=== PATIENT | female | born 1965 | race Asian ===

== ENCOUNTER 2016-04-19 11:28 | Emergency (ER) | payer OTHER ==
[2016-04-19 12:18] VITALS: BP 100/71
--- NOTE | 2016-04-19 12:29 | UC ---
Throat Pain/Nasal Guillermo HPI - HPI Summary HPI Summary: 1 day , fevers, body aches, cough - History of Current Complaint Chief Complaint: UCGeneralIllness Stated Complaint: FEVER, AND COUGH Time Seen by Provider: 04/19/16 12:10 Hx Obtained From: Patient ?: No Onset/Duration: Sudden Onset, Lasting Days - 1, Still Present Severity: Moderate Pain Intensity: 5 Pain Scale Used: 0-10 Numeric Cough: Nonproductive Associated Signs & Symptoms: Positive: Sinus Discomfort, Nasal Discharge, Fever - Allergies/Home Medications Allergies/Adverse Reactions: Allergies Allergy/AdvReac Type Severity Reaction Status Date / Time Oxycodone Allergy Itching Verified 04/19/16 12:08 ENVIRONMENTAL Allergy WATERY EYES Uncoded 04/19/16 12:08 Home Medications: Home Medications Dicyclomine CAP* [Bentyl CAP*] 20 mg 04/19/16 [History] Folic Acid TAB* [Folvite TAB*] 1 tab DAILY 04/19/16 [History Confirmed 04/19/16] Methotrexate TAB* 4 tab WEEKLY 04/19/16 [History Confirmed 04/19/16] PMH/Surg Hx/FS Hx/Imm Hx Previously Healthy: No Endocrine History Of: Denies: Diabetes Cardiovascular History Of: Denies: Hypertension, Pacemaker/ICD Respiratory History Of: Reports: Asthma - inhaler GI/ History Of: Denies: Renal Disease Cancer History Of: Denies: Breast Cancer - Surgical History Surgical History: Yes Surgery Procedure, Year, and Place: hernia repair 2008, [facility] – [place] - Family History Known Family History: Positive: None Family History: denies cardiovascular issues in family lineage - Social History 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 Lives: With Family Alcohol Use: None Substance Use Type: None Smoking Status (MU): Never Smoked Tobacco Review of Systems Constitutional: Fever, Chills, Fatigue Skin: Negative Eyes: Negative ENT: Sore Throat, Nasal Discharge Respiratory: Cough Cardiovascular: Negative Gastrointestinal: Negative Genitourinary: Negative Motor: Negative Neurovascular: Negative Musculoskeletal: Arthralgia, Myalgia Neurological: Headache Psychological: Negative All Other Systems Reviewed And Are Negative: Yes Physical Exam Triage Information Reviewed: Yes Appearance: Well-Nourished, Ill-Appearing, Pain Distress - mild Vital Signs: Initial Vital Signs Temp 100.9 F 04/19/16 12:12 Pulse 99 04/19/16 12:12 Resp 18 04/19/16 12:12 BP 100/71 04/19/16 12:12 Pulse Ox 100 04/19/16 12:12 Vital Signs Reviewed: Yes Eye Exam: Normal Eyes: Positive: Conjunctiva Clear ENT Exam: Normal ENT: Positive: Normal ENT inspection, Hearing grossly normal, Nasal congestion, Nasal drainage, TMs normal. Negative: Pharyngeal erythema, Tonsillar swelling, Tonsillar exudate, Trismus, Muffled/hoarse voice Dental Exam: Normal Neck exam: Normal Neck: Positive: Supple, Nontender, No Lymphadenopathy Respiratory Exam: Normal Respiratory: Positive: Chest non-tender, Lungs clear, Normal breath sounds, No respiratory distress, No accessory muscle use Cardiovascular Exam: Normal Cardiovascular: Positive: RRR, No Murmur, Pulses Normal, Brisk Capillary Refill Musculoskeletal Exam: Normal Musculoskeletal: Positive: Strength Intact, ROM Intact, No Edema Neurological Exam: Normal Neurological: Positive: Alert, Muscle Tone Normal Psychological Exam: Normal Skin Exam: Normal Diagnostics - Laboratory Diagnostic Studies Completed/Ordered: influenza A (+) Throat Pain/Nasal Course/Dx - Course Assessment/Plan: Tamiflu, rest, ibuprofen, increase fluids, follow with pcp re- check prn - Differential Dx/Diagnosis Differential Diagnosis/HQI/PQRI: Influenza, Otitis Media, Peritonsillar Abscess , Pharyngitis, URI Provider Diagnoses: Influenza A Discharge - Discharge Plan Condition: Stable Disposition: HOME Prescriptions: Oseltamivir CAP* [Tamiflu CAP*] 75 mg PO BID #10 cap Patient Education Materials: Influenza (ED) Forms: *Work Release Referrals: Jair Paredes MD [Primary Care Provider] - 5 Days
[2016-04-19] MEDS ORDERED: Acetaminophen TAB* 325 MG PO ONE (12:31)
== END 2016-04-19 13:26 | disposition home or self-care (01) ==
LOC: UCEAST 11:28
DX: J09.X2 Influenza due to identified novel influenza A virus with other respiratory manifestations (principal); Z88.5 Allergy status to narcotic agent
CPT/HCPCS: 87502; 87651; 99212; A9270-GY; G0463

== ENCOUNTER 2016-10-18 09:56 | Emergency (ER) | payer OTHER ==
[2016-10-18] MEDS ORDERED: NS 0.9% 1000 ML* 1,000 ML IV ONE (10:36)
[2016-10-18] MEDS ORDERED: Ondansetron INJ* 2 MG/ML VIAL IV ONE (10:36)
[2016-10-18 10:50] LABS: Hematocrit 40 % (35-47); Hemoglobin 12.8 g/dl (12.0-16.0); Mean Corpuscular HGB Conc 32 g/dl (31-36); Mean Corpuscular Hemoglobin 26 pg (27-31); Mean Corpuscular Volume 83 fL (80-97); Mean Platelet Volume 9 um3 (7.4-10.4); Red Blood Count 4.84 10^6/ul (4.0-5.4); Red Cell Distribution Width 15 % (10.5-15)
[2016-10-18 11:09] LABS: Albumin 4.1 g/dL (3.2-5.2); BUN/Creatinine Ratio 11.7 (8-20); Calcium 9.5 mg/dL (8.6-10.3); EGFR African American 101.6 (>60); Globulin 3.2 g/dL (2-4); Potassium 4.2 mmol/L (3.5-5.0); Total Bilirubin 0.9 mg/dL (0.2-1.0); Total Protein 7.3 g/dL (6.4-8.9)
[2016-10-18 12:43] VITALS: BP 109/61
[2016-10-18 12:51] LABS: Urine Bacteria Absent (Absent); Urine Bilirubin Negative (Negative); Urine Glucose Negative (Negative); Urine Nitrite Negative (Negative)
--- NOTE | 2016-10-19 08:22 | ED ---
Abdominal Pain/Female - HPI Summary HPI Summary: Patient is an otherwise healthy 50 year old female who presents to the Ed with CC of nausea vomiting weakness and headache for two days. Her symptoms began on Tuesday morning after beginning a Bupenorphrine patch on Tuesday night which was prescribed by her PCP for chronic back pain. She denies diarrhea or abdominal pain. She notes to weakness, but also has not had po intake for over 36 hours. She denies fevers, sweats, chills. Denies other medications. is at bedside. - History of Current Complaint Chief Complaint: EDNauseaVomitDiarrh Stated Complaint: VOMITING/DIZZY Time Seen by Provider: 10/18/16 10:08 Hx Obtained From: Patient ?: No Onset/Duration: Sudden Onset Timing: Constant Severity Initially: Moderate Severity Currently: Moderate Pain Intensity: 0 Pain Scale Used: 0-10 Numeric Aggravating Factor(s): Nothing Alleviating Factor(s): Nothing Associated Signs and Symptoms: Positive: Nausea, Vomiting Allergies/Adverse Reactions: Allergies Allergy/AdvReac Type Severity Reaction Status Date / Time Cyclobenzaprine Allergy Unknown Verified 10/18/16 10:11 Reaction Details Oxycodone Allergy Itching Verified 10/18/16 10:11 ENVIRONMENTAL Allergy WATERY EYES Uncoded 10/18/16 10:11 Home Medications: Home Medications Buprenorphine [Butrans] 7.5 mcg TRANSDERM WEEKLY 10/18/16 [History Confirmed ] PMH/Surg Hx/FS Hx/Imm Hx Previously Healthy: Yes Endocrine/Hematology History: Denies: Hx Diabetes Cardiovascular History: Denies: Hx Hypertension, Hx Pacemaker/ICD, Other Cardiovascular Problems/ Disorders Respiratory History: Reports: Hx Asthma - inhaler, Hx Seasonal Allergies Denies: Other Respiratory Problems/Disorders GI History: Reports: Hx Irritable Bowel Denies: Other GI Disorders History: Denies: Hx Renal Disease, Other Problems/Disorders Musculoskeletal History: Reports: Hx Back Problems - L1-L2 compression fracture Denies: Other Musculoskeletal History Sensory History: Denies: Hx Contacts or Glasses, Hx Hearing Aid Opthamlomology History: Denies: Hx Contacts or Glasses Neurological History: Reports: Other Neuro Impairments/Disorders - PAIN CLINIC PT Psychiatric History: Denies: Hx Panic Disorder - Cancer History Hx Chemotherapy: No Hx Radiation Therapy: No - Surgical History Surgery Procedure, Year, and Place: hernia repair 2009, [facility] [place] Hx Anesthesia Reactions: No Infectious Disease History: Denies: Traveled Outside the [place] in Last 30 Days - Family History Known Family History: Positive: None Family History: denies cardiovascular issues in family lineage - Social History Occupation: Employed Full-time Lives: With Family Alcohol Use: None Hx Substance Use: Yes Substance Use Type: Reports: Prescribed Hx Tobacco Use: No Smoking Status (MU): Never Smoked Tobacco Review of Systems Constitutional: Negative Eyes: Negative ENT: Negative Respiratory: Negative Positive: Abdominal Pain, Vomiting, Nausea Positive: no symptoms reported, see HPI Skin: Negative Neurological: Negative All Other Systems Reviewed And Are Negative: Yes Physical Exam Triage Information Reviewed: Yes Vital Signs On Initial Exam: Initial Vitals Temp Pulse Resp BP Pulse Ox 97.7 F 67 20 111/62 100 10/18/16 09:58 10/18/16 09:58 10/18/16 09:58 10/18/16 09:58 10/18/16 09:58 Vital Signs Reviewed: Yes Appearance: Positive: Well-Appearing, Well-Nourished Skin: Positive: Warm, Skin Color Reflects Adequate Perfusion Head/Face: Positive: Normal Head/Face Inspection Eyes: Positive: EOMI, LUZ, Conjunctiva Clear Neck: Positive: Supple, No Lymphadenopathy Respiratory/Lung Sounds: Positive: Clear to Auscultation, Breath Sounds Present Cardiovascular: Positive: RRR, Pulses are Symmetrical in both Upper and Lower Extremities Bowel Sounds: Positive: Present Musculoskeletal: Positive: Normal, Strength/ROM Intact Neurological: Positive: Normal, Sensory/Motor Intact, Alert, Oriented to Person Place, Time, Speech Normal Psychiatric: Positive: Normal AVPU Assessment: Alert - Delilah Coma Scale Coma Scale Total: 15 Diagnostics - Vital Signs Vital Signs Temp Pulse Resp BP Pulse Ox 10/18/16 12:42 98.6 F 77 16 109/61 10/18/16 11:30 77 104/71 95 10/18/16 11:00 69 105/65 93 10/18/16 10:30 65 116/73 99 10/18/16 10:14 65 99 10/18/16 10:11 115/63 10/18/16 10:04 98.3 F 84 20 111/62 98 10/18/16 09:58 97.7 F 67 20 111/62 100 - Laboratory Lab Results: Lab Results 10/18/16 10/18/1610/18/17 Range/Units 10:35 10:35 11:54 WBC 6.0 (3.5-10.8) 10^3/ul RBC 4.84 (4.0-5.4) 10^6/ul Hgb 12.8 (12.0-16.0) g/dl Hct 40 (35-47) % MCV 83 (80-97) fL MCH 26 L (27-31) pg MCHC 32 (31-36) g/dl RDW 15 (10.5-15) % Plt Count 201 (150-450) 10^3/ul MPV 9 (7.4-10.4) um3 Neut % (Auto) 71.8 (38-83) % Lymph % (Auto) 18.9 L (25-47) % [place] % (Auto) 5.6 (1-9) % Eos % (Auto) 3.1 (0-6) % Baso % (Auto) 0.6 (0-2) % Absolute Neuts (auto) 4.3 (1.5-7.7) 10^3/ul Absolute Lymphs (auto) 1.1 (1.0-4.8) 10^3/ul Absolute Monos (auto) 0.3 (0-0.8) 10^3/ul Absolute Eos (auto) 0.2 (0-0.6) 10^3/ul Absolute Basos (auto) 0 (0-0.2) 10^3/ul Absolute Nucleated RBC 0 10^3/ul Nucleated RBC % 0.1 Sodium 137 (133-145) mmol/L Potassium 4.2 (3.5-5.0) mmol/L Chloride 103 (101-111) mmol/L Carbon Dioxide 27 (22-32) mmol/L Anion Gap 7 (2-11) mmol/L BUN 9 (6-24) mg/dL Creatinine 0.77 (0.51-0.95) mg/dL Est GFR ( Amer) 101.6 (>60) Est GFR (Non-Af Amer) 79.0 (>60) BUN/Creatinine Ratio 11.7 (8-20) Glucose 98 (70-100) mg/dL Calcium 9.5 (8.6-10.3) mg/dL Total Bilirubin 0.90 (0.2-1.0) mg/dL AST 51 H (13-39) U/L ALT 52 (7-52) U/L Alkaline Phosphatase 68 (34-104) U/L Total Protein 7.3 (6.4-8.9) g/dL Albumin 4.1 (3.2-5.2) g/dL Globulin 3.2 (2-4) g/dL Albumin/Globulin Ratio 1.3 (1-3) Urine Color Yellow Urine Appearance Clear Urine pH 7.0 (5-9) Ur Specific [place] 1.008 L (1.010-1.030) Urine Protein Negative (Negative) Urine Ketones Negative (Negative) Urine Blood Negative (Negative) Urine Nitrate Negative (Negative) Urine Bilirubin Negative (Negative) Urine Urobilinogen Negative (Negative) Ur Leukocyte Esterase 1+ H (Negative) Urine WBC (Auto) Trace(0-5/hpf) (Absent) Urine RBC (Auto) Trace(0-2/hpf) (Absent) Ur Squamous Epith Cells Present H (Absent) Urine Bacteria Absent (Absent) Urine Glucose Negative (Negative) Result Diagrams: 10/18/16 10:35 10/18/16 10:35 Lab Statement: Any lab studies that have been ordered have been reviewed, and results considered in the medical decision making process. Abdominal Pain Fem Course/Dx - Course Course Of Treatment: Patient was given 4 mg IV Zofran, one L fluid, and feels somewhat improved. Labs wnl. UA wnl. Patient is okay for discharge and is requesting note for work. She is instructed to discontinue the buka norfran medication and follow-up with her PCP this week regarding a new medication. - Diagnoses Differential Diagnosis: Positive: Pancreatitis, Urinary Tract Infection, Other - gastroenteritis Provider Diagnoses: Medication reaction Discharge - Discharge Plan Condition: Stable Disposition: HOME Prescriptions: Ondansetron ODT TAB* [Zofran 4 MG Odt TAB*] 4 mg PO Q6H PRN #12 tab.odt MDD 4 PRN Reason: Nausea Patient Education Materials: Acute Nausea and Vomiting (ED) Forms: *Work Release Referrals: Jair Paredes MD [Primary Care Provider] - Additional Instructions: Can take Zofran every 6 hours as needed for nausea Drink small amounts of fluid as tolerated When able to eat follow BRAT diet: Bananas, rice, applesauce, toast Symptoms likely due to medication Take ibuprofen or Tylenol for pain as needed every 6 hours Follow up with primary within 5 days Return to ED if develop fever that does not respond to Tylenol or ibuprofen, severe abdominal pain, or any new or worsening symptoms
== END 2016-10-18 12:44 | disposition home or self-care (01) ==
LOC: ED 09:56
DX: R11.2 Nausea with vomiting, unspecified (principal); R53.1 Weakness; R51 Headache; T50.995A Adverse effect of other drugs, medicaments and biological substances, initial encounter; Y92.9 Unspecified place or not applicable; J45.909 Unspecified asthma, uncomplicated; Z88.5 Allergy status to narcotic agent
CPT/HCPCS: 36415; 80053; 81003; 81015; 85025; 87086; 96361; 96374; 99283; J2405

== ENCOUNTER 2016-12-28 16:33 | Emergency (ER) | payer OTHER ==
[2016-12-28 17:03] VITALS: BP 119/76
[2016-12-28] MEDS ORDERED: Ondansetron ODT TAB* 4 MG PO ONE (17:18)
[2016-12-28] MEDS ORDERED: Ketorolac INJ* 30 MG/ML 1 ML VIAL IM ONE (17:18)
--- NOTE | 2016-12-28 18:25 | UC ---
Abdominal Pain Female HPI - HPI Summary HPI Summary: 50 yo female with the onset about 2 AM of RUQ and epigastric abd pain that was followed by nausea and vomiting had vomited about 8 x no fever some chills no UTI symptom - History of Current Complaint Chief Complaint: UCAbdominalPain Stated Complaint: ABDOMINAL PAIN Time Seen by Provider: 12/28/16 17:06 Hx Obtained From: Patient Onset/Duration: Sudden Onset, Lasting Hours Timing: Constant Severity Initially: Moderate Severity Currently: Moderate Pain Intensity: 6 Pain Scale Used: 0-10 Numeric Location: Discrete At: RUQ, Epigastric Radiates: No Character: Cramping, Sharp Aggravating Factor(s): Food Alleviating Factor(s): Nothing Associated Signs and Symptoms: Positive: Nausea, Vomiting Allergies/Adverse Reactions: Allergies Allergy/AdvReac Type Severity Reaction Status Date / Time Cyclobenzaprine Allergy Unknown Verified 12/28/16 17:02 Reaction Details Oxycodone Allergy Itching Verified 12/28/16 17:02 Buprenorphine [From VoltDB] AdvReac Nausea And Verified 12/28/16 17:02 Vomiting ENVIRONMENTAL Allergy WATERY EYES Uncoded 12/28/16 17:02 Home Medications: Home Medications Diphenhydramine HCl [Benadryl Allergy 25 MG CAP] 2 mg PO Q6H PRN 12/28/16 [ History Confirmed 12/28/16] Ibuprofen [Ibuprofen 200 MG] 600 mg PO Q8H PRN 12/28/16 [History Confirmed 12/28] Methotrexate TAB* 2.5 mg PO Q7D 12/28/16 [History Confirmed 12/28/16] PMH/Surg Hx/FS Hx/Imm Hx Previously Healthy: Yes - Surgical History Surgical History: Yes Surgery Procedure, Year, and Place: hernia repair 2008, [facility] [place] - Family History Known Family History: Positive: None Negative: Cardiac Disease, Hypertension, Diabetes Family History: denies cardiovascular issues in family lineage - Social History Alcohol Use: None Substance Use Type: None Smoking Status (MU): Never Smoked Tobacco Review of Systems Constitutional: Negative Skin: Negative Eyes: Negative ENT: Negative Respiratory: Negative Cardiovascular: Negative Gastrointestinal: Abdominal Pain, Vomiting, Nausea Genitourinary: Negative Motor: Negative Neurovascular: Negative Musculoskeletal: Negative Neurological: Negative Psychological: Negative Is Patient Immunocompromised?: No All Other Systems Reviewed And Are Negative: Yes Physical Exam Triage Information Reviewed: Yes Appearance: Well-Appearing, No Pain Distress, Well-Nourished Vital Signs: Initial Vital Signs Temp 98.1 F 12/28/16 16:57 Pulse 74 12/28/16 16:57 Resp 16 12/28/16 16:57 BP 119/76 12/28/16 16:57 Pulse Ox 100 12/28/16 16:57 Vital Signs Reviewed: Yes Eyes: Positive: Conjunctiva Clear ENT: Positive: Hearing grossly normal. Negative: Nasal congestion, TMs normal, Trismus, Muffled/hoarse voice Neck: Positive: Supple, Nontender, No Lymphadenopathy Respiratory: Positive: Lungs clear, Normal breath sounds, No respiratory distress Cardiovascular: Positive: RRR, No Murmur Abdomen Description: Positive: No Organomegaly. Negative: Nontender - tender epigastirum and RUQ, CVA Tenderness (R), CVA Tenderness (L), McBurney's Point Tenderness, Peritoneal Signs, Pulsatile Mass, Splenomegaly Bowel Sounds: Positive: Present Musculoskeletal: Positive: ROM Intact, No Edema Neurological: Positive: Alert Psychological Exam: Normal Skin Exam: Normal Re-Evaluation - Re-Evaluation First Eval Re-Evaluation Time: 18:15 Change: Improved Comment: decreased pain 2/10, markedly decreased tenderness, decreased nausea Abd Pain Female Course/Dx - Differential Dx/Diagnosis Provider Diagnoses: Abdominal pain of uncertain cause Discharge - Discharge Plan Condition: Stable Disposition: HOME Prescriptions: Ondansetron TAB* [Zofran Tab*] 4 mg PO Q6H PRN #10 tab PRN Reason: Nausea Patient Education Materials: Biliary Colic (ED), Acute Abdominal Pain (ED) Forms: *Work Release Referrals: Yo Tomlin MD [Medical Doctor] - 1 Day Jair Paredes MD [Primary Care Provider] - 1 Day Additional Instructions: you need to get rechecked tomorrow to ER tonight if symptoms worsen/increased pain/worsening vomiting This may be due to your gall bladder clear liquids tonight
[2016-12-29 11:21] LABS: Hematocrit 37 % (35-47); Hemoglobin 11.8 g/dl (12.0-16.0); Mean Corpuscular HGB Conc 32 g/dl (31-36); Mean Corpuscular Hemoglobin 27 pg (27-31); Mean Corpuscular Volume 84 fL (80-97); Mean Platelet Volume 10 um3 (7.4-10.4); Red Blood Count 4.35 10^6/ul (4.0-5.4); Red Cell Distribution Width 15 % (10.5-15); White Blood Count 5.2 10^3/ul (3.5-10.8)
[2016-12-29 11:39] LABS: Albumin 4.1 g/dL (3.2-5.2); BUN/Creatinine Ratio 14.1 (8-20); Calcium 9.5 mg/dL (8.6-10.3); EGFR African American 111.6 (>60); EGFR Non-African American 86.8 (>60); Globulin 2.7 g/dL (2-4); Potassium 4.3 mmol/L (3.5-5.0); Total Bilirubin 0.6 mg/dL (0.2-1.0); Total Protein 6.8 g/dL (6.4-8.9)
--- NOTE | 2016-12-29 17:52 | ED ---
Progress - Progress Note Progress Note: NO ACUTE CHANGES ON LABS. HGB 11.8 (NORMAL 12-16) SO F/U PCP. Re-Evaluation - Re-Evaluation First Eval Re-Evaluation Time: 18:15 Change: Improved Comment: decreased pain 2/10, markedly decreased tenderness, decreased nausea Course/Dx - Diagnoses Provider Diagnoses: Abdominal pain
== END 2016-12-28 18:38 | disposition home or self-care (01) ==
LOC: UCEAST 16:33
DX: R10.9 Unspecified abdominal pain (principal); Z88.5 Allergy status to narcotic agent
CPT/HCPCS: 36415; 80053; 81003; 83690; 85025; 96372; 99212; A9270-GY; G0463; J1885

== ENCOUNTER 2017-12-22 16:26 | Emergency (ER) | payer OTHER ==
--- OUTSIDE RECORDS SUMMARY | 2017-12-22 16:32 | XMS REPORT ---
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 Active Onset: 10/10/2007 Allergic rhinitis Jair Paredes M.D. Active Onset: 10/10/2007 Asthma without status asthmaticus Jair Paredes M.D. 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 Active Onset: 09/09/2014 Polyarthropathy Didier Hensley M.D. Active Onset: 08/26/2014 Acquired trigger finger Didier Hensley M.D. Active Onset: 08/26/2014 Arthropathy of joint of hand Didier Hensley M.D. Active Family History Date Family Member(s) Problem(s) Comments First Brother Diabetes Mellitus, II Social History Type Date Description Comments Cigarette Use Nonsmoker ETOH Use Denies alcohol use Smoking Patient has never smoked Exercise Type/Frequency Current Exercises sporadically Allergies, Adverse Reactions, Alerts Date Description Reaction Status Severity Comments 10/15/2008 Fruit mouth itching active cherries, apples, pears, peaches 01/12/2010 Hydrocodone ? itch active 01/12/2010 Cyclobenzaprine itch active Medications Medication Date Status Form Strength Qnty SIG Indications Ordering Provider Mupirocin 12/21 Active Ointment 2% 15gm apply to L01.00 Marlin Rawls affected Marko, area in [employer]ICING MANAGER nose 2 times per day until healed, not more than 14 days in a row Fluocinonide 05/24 Active Solution 0.05% 60uni apply Marlin C. ts topically Marko, once [employer]ICING MANAGER daily as directed Montelukast 03/13 Active Tablets 10mg 90tab 1 by J45.30 Marlin CYarelis s mouth Marko, every day [employer]ICING MANAGER prn Ventolin HFA 11/06 Active Aerosol 108(90Bas 18uni inhale Chelsea /2013 e) ts two puffs Emilee, mcg/Act by mouth [employer] F[employer]ER every 4 hours as needed for coughing and wheezing Dicyclomine HCL 04/13 Active Tablets 20mg 30tab take 1 564.1 Didier T. s tablet by Ayden, mouth M.D. prior to meals and in the evening as needed Tramadol HCL 12/29 Hx Tablets 50mg 10tab take 1 by R10.11 Marlin C. s mouth Marko, - every 6 [employer]ICING MANAGER 12/14 hours needed for severe pain. Vivotif Nicolasa 03/[address] portillo 1 by Z71.89 Chelsea Vaccine mouth Emilee, - days [employer] 05/27 1,3,5, to be completed one week prior to travel/po tential exposure Sulfamethoxazole/ 03/13 Hx Tablets 800-160mg 14tab take 1 Z71.89 Chelsea Trimethoprim s tablet by Emilee, - mouth [employer] FILLER 05/27 twice a day x 7 days finish all medicatio n Naproxen 01/16 Hx Tablets 500mg 60tab take 1 M19.049 Didier T. s tablet Ayden, - twice a M.D. 12/21 day needed for pain take with food. Prednisone 11/15 Hx Tablets 10mg 30tab 2 twice a 716.59 Didier T. /2014 s day x 3 Midura, - days then M.D. 12/09 2 in the morning, 1 at night x 3 days then 1 twice a day x 3 days then 1 every day x 3 Hydroxychloroquin 10/28 Hx Tablets 200mg 60tab 1 by 088.81 Didier T. e Sulfate /2014 s mouth Midura, - twice a M.D. Azithromycin 10/01 Hx Tablets 500mg 30tab 1 by 088.81 Didier T. s mouth Midura, - every day M.D. 01/16 Doxycycline 09/09 Hx Capsules 100mg 60cap 1 by 088.81 Didier T. Hyclate s mouth Midura, - twice a M.D. Meloxicam 08/26 Hx Tablets 7.5mg 30tab 1 by 716.94 Didier T. s mouth Midura, - every day M.D. 09/09 for pain take with food. Work Excuse 02/06 Hx please 724.5 Chelsea excuse Emilee, - due [employer] 08/26 injury through 02/15/13 Oxycodone HCL 02/06 Hx Tablets 5mg 40tab 1 po 724.5 Chelsea /2013 s every 6 Emilee, - hrs prn [employer] FILLER 08/26 back pain Avelox 11/06 Hx Tablets 400mg 10tab 1 po qd Ramona /2012 s José Miguel, - Afnp-C 11/16 Amoxicillin/Potas 09/18 Hx Tablets 875-125mg 14tab 1 po bid 461.1 Ramona sium Clavulanate s x 10 days José Miguel, - Afnp-C 11/06 Fluticasone 09/18 Hx Suspension 50mcg/Act 16gm 2 sprays 461.1 Rohini Propionate in each Brown, PRICING MANAGER - nostril 01/16 Vivotif Nicolasa 12/13 Hx Capsules 4caps 1 cap qod V65.8 Jair A. /2011 x 4 doses Lena, - M.D. 12/17 Ciprofloxacin HCL 12/13 Hx Tablets 250mg 20tab 1 po bid V65.8 Jair s as Lena, - directed M.Cooper 12/23 for diarrhea 03/06 Hx Tablets 30tab 1 po q 12 s Erwin Lazaro M.D. 04/13 Fluocinonide 12/28 Hx Solution 0.05% 60uni Apply Didier T. ts Topically Midura, - Once M.D. 02/10 Daily as Directed Belladonna & 11/18 Hx Elba Phenobarbital Beny, - CAR FILLER 03/06 Augmentin 11/18 Hx Tablets 875-125mg 20tab 1 po bid s take with José Miguel, - food Afnp-C 11/28 Cortisporin Otic 11/18 Hx Suspension 1Bott instil le 4-5 gtts José Miguel, - into r Afnp-C 11/25 ear qid 7 days Lidoderm 01/12 Hx Patches 5% 60uni use on 724.9 ts painful Lena, - area(s) M.D. 11/18 for up to 12hours prn Note For Work 01/12 Hx no lifting Lena, - more than M.D. 01/26 20 pounds /2009 for 2 weeks Note No Work 11/12 Hx until further Lena, - notice M.D. 03/24 Naprosyn 10/29 Hx Tablets 500mg 20tab 1 po bid Winn Erwin Rinaldi.DYarelis 03/24 Clarinex 10/29 Hx Tablets 5mg 30tab 1 po qd Pa . Erwin Rinaldi M.D. 03/24 Note For Work 10/29 Hx please Pa excuse Emory, Erwin from M.D. 03/24 heavy lifing of over 20 lbs for two weeks due to medical problem Zithromax Z-silvestre 10/15 Hx Tablets 250mg 1Pack as 460 Jair directed Erwin Paredes M.Cooper 10/20 Miralax 02/27 Hx Packet [id number] 527gm 17gm in 564.00 8oz water Beny, - daily for [employer] FILLER 08/23 Nexium 02/[address] 40mg 30cap 1 po qd 530.81 s Beny, - CAR FILLER 08/23 Amoxicillin 01/07 Hx Capsules 500mg 30cap 1 PO tid 034.0 s X 10 Days Beny, - CAR FILLER 02/19 Out Of Work 01/07 Hx sergei was seen by Beny, - mi [employer] FILLER 02/19 ton and julygo back to work until tuesday01/12/08 Fenofibrate 12/10 Hx Capsules 160mg 30cap 1 PO qd 272.4 Jair A. Erwin Ward M.D. 11/12 Singulair 12/10 Hx Tablets 10mg 30tab take one 477.9 Jair Yarelis s tablet by Lena, - mouth one M.Cooper 03/24 daily Fenofibrate 11/13 Hx Tablets 54mg 30tab 1 po qd 272.4 Jair AYarelis Erwin Ward M.D. 12/10 Mircette 11/13 Hx Tablets 28Day . Testing - Doctor 02/27 Clarinex 10/09 Hx Tablets 5mg 30tab 1 po qhs 477.9 Jair AYarelis Erwin Ward M.D. 12/10 Symbicort 10/09 Hx Aerosol 80-4.5 1unit 1 puff 493.90 Jair AYarelis s bid Erwin Paredes M.D. 03/24 Proventil Hfa 09/06 Hx Aerosol 108mcg/Ac 1unit 2 puffs 477.9 t s q4h prn Beny, - shortness [employer] FILLER 03/24 of Note No Work 09/06 Hx sergei was 477.9 sen by me Beny, - today and CAR FILLER 09/24 return to work until tuesday, 6\\16\\08 Vytorin 02/02 Hx Tablets 10mg;40 30tab 1 PO qd 272.4 Tamara mg s Maria Alejandra, - Afnp-C 10/09 Medrol Dose Silvestre 12/14 Hx Tablets 4mg 1tabs . Erwin Jackson M.D. 02/27 Work Excuse 12/14 Hx unable to Yarelis work For Renetta, - 2-3 Days M.D. 02/27 Antivert 09/13 Hx Tablets 12.5mg 30tab 1-2 PO [facility] Andre-[facility] 09/13 Antivert 09/13 Hx Tablets 25mg 30tab 1 q8 hrs s prn [facility] - Andre-[facility] 03/24 Patanol Eye gtts 09/13 Hx 0.1% 1Bott 1-2 gtts le Into Each [facility], - Eye bid np-C 11/12 Work Note 09/13 Hx seen in this [facility], - office, ines-C 09/17 return to work 09/19/06 Nasacort Aq 08/12 Hx Suspension 55mcg/Act 1unit 2 sprays 477.9 Elba Intranasal [place] uation s each Beny, - nares qd [employer] FILLER 02/02 Singulair 08/12 Hx 0 10mg 30uni 1 po qd 477.9 ts Beny, - CAR FILLER 02/02 Vytorin 04/27 Hx Tablets 10mg;40 30tab 1 po qhs Chelsea /2007 mg s aramis Goodwin, 12/14 M.D. Biaxin 08/30 Hx Tablets 500mg 20tab 1 po bid Didier T. /2005 s Ayden, - M.D. 04/11 Diclofenac 08/18 Hx Tablets 75mg 60tab 1 po bid Didier T. s with food Ayden, - for pain M.D. 12/14 Ceftin 08/09 Hx Tablets 500mg 20tab 1 PO bid Didier T. s Ayden, - M.D. 08/17 Jaylene-D 08/09 Hx 60mg 60uni 1 po bid 477.9 Elba /2005 ts prn for Beny, - allergy [employer]ER 10/09 symptoms Tennis Elbow 07/28 Hx 1unit use on LT Didier T. Strap s forearm Midura, - as M.D. 04/11 Directed During Work Flexeril 06/23 Hx Tablets 10mg 30tab 1-2 hs Didier T. /2005 s prn Midura, - Muscle M.D. 04/11 Work Excuse 06/23 Hx unable to Didier T. /2005 work Midura, - until M.D. 04/11 due to left shoulder injury that is work related. Control 05/25 Hx Tablets Giorgio J. Pills Ruben, - M.D. 04/11 Physical Therapy 05/10 Hx 3/WK treatment Jair A. /2005 and Lena, - evaluaury M.DYarelis 02/18 n, angelina /2009 back pain this is w/c-Appro liza For 12 Visits Flovent 03/31 Hx Aerosol 44mcg/Inh 1unit 2 puff Giorgio J. /2005 alation s bid rinse Ruben, - mouth M.D. 08/09 after use /2005 Note 09/17 Hx PT may Giorgio J. /2004 return to Ruben, - work M.D. 03/31 Albuterol Mdi 09/08 Hx 1unit 2 puffs Patrick Solomon /2004 s q4h prn Breyazmin, - cough or M.D. 09/06 wheeze /2007 Clarinex 09/03 Hx Tablets 5mg 30tab 1 po qd Giorgio J. /2005 s Ruben, - M.D. 08/09 Biaxin 09/03 Hx Tablets 500mg 20tab 1 PO bid Giorgio J. /2004 s Ruben, - M.D. 09/13 Work Excuse 09/03 Hx Still Giorgio J. /2004 unable to [place], - work for M.D. 09/15 1 wk due to illness has reevaluat ion in Another 1 wk Has Pneumonia Work 06/10 Hx no Giorgio J. Recommendations /2004 lifting Finver, - more than M.D. 07/08 20# seen again in 4 wks. Physical Therapy 06/10 Hx 3/WK 6WK treatment Giorgio J. /2004 and Ruben, - evaluatio M.D. 07/08 n for lt trapezius strain Out Of Work Until 01/13 Hx out of work Javier, - until CAR FILLER 06/10 01/15/ Amoxil 01/13 Hx 500mg 30uni 1 PO tid ts Javier, - CAR FILLER 06/10 Out Of Work 07/22 Hx will be Mk S. out of [place], - work M.D. 09/10 until seen in 2 weeks Singulair 05/16 Hx 10mg 30uni qd Mk S. ts Shadi, - M.D. 09/03 Jaylene 03/14 Hx 180mg 30uni 1 po qd Mk S. ts prn Shadi, - M.D. 09/03 Nasacort Aq 03/14 Hx 1Bott 1 spray q Mk S. /2002 le nostril Shadi, - qd M.D. 09/03 Prednisone 05/11 Hx 10mg 30uni 4 qd x Elba /2002 ts 3d, 3 qd Beny, - x 3d, 2 [employer] FILLER 03/14 qd x 3d, /2002 1qd x 3d Work Excuse 05/11 Hx Unable To [place] Work Beny, - Until CAR FILLER 06/10 2\\17\\03 Due To Illness Zyrtec 05/11 Hx Tabs 10mg 30tab 1 po qd Elba s Beny, - CAR FILLER 03/14 Blephamide 03/29 Hx 5gm apply to Mk S. Ointment upper lid Shadi, - bid M.D. 05/25 Dovonex 03/29 Hx .005% 30gm apply to Mk S. /2003 rash qd [place], - back of M.D. 05/25 Duratuss GP 02/05 Hx 40uni 1 PO Q 12 Didier T. /2001 ts HR prn Midura, - Head M.D. 06/10 Congestio n Return To Work 01/15 Hx May Didier T. Return To [facility], - Work M.D. 06/10 Needs To Use RT Wrist Splint. Wrist Splint, 12/18 Hx 1unit RT-Hand Didier TYarelis s Medium; Midnahomy, Flex/Extend - Wear as M.D. 06/10 Ibuprofen 12/18 Hx 600mg 60uni 1 po tid Didier T. ts prn pain Ayden, - M.D. 04/11 Work Excuse 12/18 [facility] 01/15 Rechecked In 20 Weeks Due To RT Wrist Injury Selsufrida Shampoo 07/06 Hx 1Bott use as Mk S. yuval Hsu, - M.DYarelis 05/25 2 times per week Ventolin HFA 00/00 Hx Aerosol 108(90Bas 1unit 2 puffs Elba /0000 e) mcg/ac s qd Beny, - CAR FILLER 06/13 00/00 Hx Tablets 30tab 1 po q 12 Elba /0000 s hrs Beny, - CAR FILLER 11/18 Cyclobenzaprine 0000 Hx Tablets 10mg 10tab take 1 Unknown HCL /0000 s tablet by - mouth 01/12 times a day if needed Naproxen 00/00 Hx Tablets 500mg 40tab 1 po bid Unknown /0000 s prn pain - 06/13 Hydrocodone/Aceta 0000 Hx Tablets 5-500mg 40tab 1 po Unknown minophen /0000 s q4-6h prn - pain 01/12 Ventolin HFA 00/00 Hx Aerosol 108(90Bas 1unit Inhale Ramona /0000 e) mcg/ac s Two Puffs [place], - By Mouth Afnp-C 11/06 Every Day /2012 Immunizations CPT Code Status Date Vaccine Reaction Lot # 21220 Given 03/13/2015 Influenza Vac, Quadrivalent, [id number] [address] Given 12/23/2011 DO Not Use Split Influenza no reaction noted [id number] Virus Vaccine 58902 Given 12/14/2011 (IPV) Inactive Poliovirus [id number] Vaccine 34528 Given 12/14/2011 Hep A & Hep B Adult, adult [id number] dosage, for intramuscular use 21233 Given 03/24/2009 Tdap Tetanus, W Pertussis [id number] Vital Signs Date Vital Result Comment 12/21/2017 BP Systolic 110 mmHg BP Diastolic 60 mmHg Heart Rate 90 /min Body Temperature 97.5 F Respiratory Rate 16 /min Height 60.25 inches 5'0.25" Weight 164.00 lb BMI (Body Mass Index) 31.8 kg/m2 04/20/2017 BP Systolic 102 mmHg BP Diastolic 70 mmHg Heart Rate 78 /min Body Temperature 97.6 F Height 60.25 inches 5'0.25" Weight 158.38 lb BMI (Body Mass Index) 30.7 kg/m2 12/29/2016 BP Systolic 120 mmHg BP Diastolic 80 mmHg Heart Rate 80 /min Body Temperature 98.1 F Respiratory Rate 18 /min Height 60.25 inches 5'0.25" Weight 160.00 lb BMI (Body Mass Index) 31.0 kg/m2 02/11/2016 BP Systolic 110 mmHg BP Diastolic 70 mmHg Heart Rate 88 /min Body Temperature 97.2 F Respiratory Rate 16 /min Height 60.25 inches 5'0.25" Weight 163.00 lb BMI (Body Mass Index) 31.6 kg/m2 05/28/2015 BP Systolic 100 mmHg BP Diastolic 60 mmHg Heart Rate 76 /min Body Temperature 97.3 F Respiratory Rate 18 /min Height 60.25 inches 5'0.25" Weight 159.00 lb BMI (Body Mass Index) 30.8 kg/m2 03/13/2015 BP Systolic 106 mmHg BP Diastolic 76 mmHg Heart Rate 74 /min Body Temperature 97.9 F Respiratory Rate 16 /min Weight 154.00 lb 01/16/2015 BP Systolic 100 mmHg BP Diastolic 68 mmHg Heart Rate 72 /min Body Temperature 97.9 F Respiratory Rate 16 /min Weight 159.00 lb 12/09/2014 BP Systolic 100 mmHg BP Diastolic 60 mmHg Heart Rate 80 /min Body Temperature 98.1 F Respiratory Rate 16 /min Height 63 inches 5'3" Weight 160.12 lb BMI (Body Mass Index) 28.4 kg/m2 11/15/2014 BP Systolic 124 mmHg BP Diastolic 66 mmHg Heart Rate 778 /min Body Temperature 98.2 F Respiratory Rate 16 /min Height 63 inches 5'3" Weight 161.25 lb BMI (Body Mass Index) 28.6 kg/m2 10/28/2014 BP Systolic 114 mmHg BP Diastolic 60 mmHg Heart Rate 72 /min Body Temperature 98.0 F Respiratory Rate 16 /min Height 63 inches 5'3" Weight 161.25 lb BMI (Body Mass Index) 28.6 kg/m2 10/01/2014 BP Systolic 98 mmHg BP Diastolic 64 mmHg Heart Rate 84 /min Body Temperature 97.9 F Respiratory Rate 16 /min Height 63 inches 5'3" Weight 160.38 lb BMI (Body Mass Index) 28.4 kg/m2 09/09/2014 BP Systolic 104 mmHg BP Diastolic 64 mmHg Heart Rate 80 /min Body Temperature 98.2 F Respiratory Rate 16 /min Height 63 inches 5'3" Weight 157.00 lb BMI (Body Mass Index) 27.8 kg/m2 08/26/2014 BP Systolic 100 mmHg BP Diastolic 60 mmHg Heart Rate 64 /min Body Temperature 98.1 F Respiratory Rate 16 /min Height 63 inches 5'3" Weight 156.12 lb BMI (Body Mass Index) 27.7 kg/m2 02/06/2013 BP Systolic 110 mmHg BP Diastolic 60 mmHg Heart Rate 102 /min Body Temperature 98.3 F Respiratory Rate 16 /min Height 63 inches 5'3" Weight 162.25 lb BMI (Body Mass Index) 28.7 kg/m2 11/06/2012 BP Systolic 110 mmHg BP Diastolic 80 mmHg Heart Rate 80 /min Body Temperature 99.0 F Respiratory Rate 16 /min Height 63 inches 5'3" Weight 164.00 lb BMI (Body Mass Index) 29.0 kg/m2 09/18/2012 BP Systolic 106 mmHg BP Diastolic 66 mmHg Heart Rate 90 /min Body Temperature 98.4 F Respiratory Rate 16 /min Height 63 inches 5'3" Weight 165.25 lb BMI (Body Mass Index) 29.3 kg/m2 04/13/2012 BP Systolic Recheck 100 mmHg BP Diastolic Recheck 76 mmHg Heart Rate 72 /min Body Temperature 97.9 F Respiratory Rate 18 /min Height 63 inches 5'3" Weight 162.50 lb BMI (Body Mass Index) 28.8 kg/m2 12/14/2011 BP Systolic 104 mmHg BP Diastolic 72 mmHg Heart Rate 72 /min Body Temperature 98.4 F Respiratory Rate 16 /min Height 63 inches 5'3" Weight 168.00 lb BMI (Body Mass Index) 29.8 kg/m2 09/21/2011 BP Systolic 102 mmHg BP Diastolic 78 mmHg Heart Rate 78 /min Body Temperature 98.9 F Height 63 inches 5'3" Weight 170.00 lb BMI (Body Mass Index) 30.1 kg/m2 06/14/2011 BP Systolic 112 mmHg BP Diastolic 80 mmHg Heart Rate 88 /min Body Temperature 98.6 F Respiratory Rate 12 /min Height 63 inches 5'3" Weight 164.00 lb BMI (Body Mass Index) 29.0 kg/m2 12/30/2010 BP Systolic 110 mmHg BP Diastolic 78 mmHg Heart Rate 60 /min Body Temperature 98.5 F Height 63 inches 5'3" Weight 159.50 lb BMI (Body Mass Index) 28.3 kg/m2 12/09/2010 BP Systolic 110 mmHg BP Diastolic 80 mmHg Heart Rate 80 /min Body Temperature 98.3 F Height 63 inches 5'3" Weight 156.00 lb BMI (Body Mass Index) 27.6 kg/m2 11/18/2010 Heart Rate 66 /min Body Temperature 97.4 F Height 63 inches 5'3" Weight 155.00 lb BMI (Body Mass Index) 27.5 kg/m2 01/12/2010 BP Systolic 110 mmHg BP Diastolic 80 mmHg Heart Rate 104 /min Body Temperature 98.7 F Respiratory Rate 16 /min Height 63 inches 5'3" Weight 154.00 lb BMI (Body Mass Index) 27.3 kg/m2 03/24/2009 BP Systolic 100 mmHg BP Diastolic 70 mmHg Heart Rate 84 /min Body Temperature 98.2 F Respiratory Rate 16 /min Height 63 inches 5'3" Weight 166.00 lb BMI (Body Mass Index) 29.4 kg/m2 11/12/2008 BP Systolic 104 mmHg BP Diastolic 80 mmHg Heart Rate 80 /min Body Temperature 98.5 F Respiratory Rate 12 /min Weight 175.00 lb 10/29/2008 Heart Rate 88 /min Body Temperature 97.9 F Respiratory Rate 16 /min Weight 175.00 lb 10/15/2008 BP Systolic 112 mmHg BP Diastolic 78 mmHg Heart Rate 80 /min Body Temperature 98.7 F Respiratory Rate 12 /min Weight 177.00 lb 08/23/2008 BP Systolic 110 mmHg BP Diastolic 62 mmHg Heart Rate 72 /min Body Temperature 98.5 F Height 63 inches 5'3" Weight 172.00 lb BMI (Body Mass Index) 30.5 kg/m2 04/15/2008 BP Systolic 100 mmHg BP Diastolic 70 mmHg Heart Rate 100 /min Body Temperature 98.6 F Weight 175.00 lb 03/15/2008 BP Systolic 120 mmHg BP Diastolic 82 mmHg Heart Rate 80 /min Body Temperature 97.3 F Height 63 inches 5'3" Weight 173.00 lb BMI (Body Mass Index) 30.6 kg/m2 02/28/2008 BP Systolic 114 mmHg BP Diastolic 74 mmHg Heart Rate 88 /min Height 63 inches 5'3" Weight 174.00 lb BMI (Body Mass Index) 30.8 kg/m2 02/20/2008 BP Systolic 110 mmHg BP Diastolic 82 mmHg Heart Rate 76 /min Body Temperature 97.7 F Respiratory Rate 12 /min Height 63 inches 5'3" Weight 173.00 lb BMI (Body Mass Index) 30.6 kg/m2 01/08/2008 BP Systolic 120 mmHg BP Diastolic 80 mmHg Heart Rate 80 /min Body Temperature 98.9 F Height 63 inches 5'3" Weight 176.00 lb BMI (Body Mass Index) 31.2 kg/m2 11/14/2007 BP Systolic 118 mmHg BP Diastolic 80 mmHg Heart Rate 64 /min Body Temperature 97.8 F Respiratory Rate 12 /min Height 63 inches 5'3" Weight 171.00 lb BMI (Body Mass Index) 30.3 kg/m2 10/10/2007 BP Systolic 110 mmHg BP Diastolic 70 mmHg Heart Rate 72 /min Body Temperature 98.4 F Respiratory Rate 16 /min Height 63 inches 5'3" Weight 169.00 lb BMI (Body Mass Index) 29.9 kg/m2 09/25/2007 BP Systolic 110 mmHg BP Diastolic 80 mmHg Heart Rate 80 /min Body Temperature 98.9 F Height 63 inches 5'3" Weight 171.00 lb BMI (Body Mass Index) 30.3 kg/m2 09/07/2007 BP Systolic 108 mmHg BP Diastolic 62 mmHg Heart Rate 100 /min Body Temperature 99.0 F Height 63 inches 5'3" Weight 175.00 lb BMI (Body Mass Index) 31.0 kg/m2 03/14/2007 BP Systolic 106 mmHg BP Diastolic 64 mmHg Heart Rate 64 /min Weight 171.00 lb 02/02/2007 BP Systolic 110 mmHg BP Diastolic 78 mmHg Heart Rate 74 /min Body Temperature 98.4 F Weight 171.00 lb 12/14/2006 BP Systolic 98 mmHg BP Diastolic 68 mmHg Heart Rate 92 /min Body Temperature 98.8 F Weight 170.00 lb 09/13/2006 BP Systolic 96 mmHg BP Diastolic 70 mmHg Heart Rate 88 /min Body Temperature 98.5 F Weight 169.00 lb 08/12/2006 BP Systolic 98 mmHg BP Diastolic 70 mmHg Heart Rate 72 /min Body Temperature 98.0 F Weight 172.00 lb 04/27/2006 BP Systolic 90 mmHg BP Diastolic 60 mmHg Heart Rate 76 /min Weight 175.00 lb 04/11/2006 BP Systolic 110 mmHg BP Diastolic 60 mmHg Heart Rate 68 /min Weight 175.00 lb 08/30/2005 BP Systolic 92 mmHg BP Diastolic 60 mmHg Heart Rate 74 /min Weight 169.00 lb 08/18/2005 BP Systolic 112 mmHg BP Diastolic 68 mmHg Heart Rate 78 /min Respiratory Rate 14 /min Weight 168.00 lb 08/17/2005 BP Systolic 112 mmHg BP Diastolic 60 mmHg Heart Rate 76 /min Body Temperature 98.3 F Weight 168.00 lb 08/09/2005 BP Systolic 106 mmHg BP Diastolic 70 mmHg Heart Rate 84 /min Body Temperature 98.0 F Weight 171.00 lb 07/28/2005 BP Systolic 110 mmHg BP Diastolic 60 mmHg Heart Rate 84 /min Weight 172.00 lb 07/07/2005 BP Systolic 98 mmHg BP Diastolic 60 mmHg Heart Rate 88 /min Weight 166.00 lb 06/23/2005 BP Systolic 92 mmHg BP Diastolic 62 mmHg Heart Rate 74 /min Weight 170.00 lb 05/25/2005 BP Systolic 100 mmHg BP Diastolic 64 mmHg Heart Rate 84 /min Weight 171.00 lb 05/10/2005 BP Systolic 108 mmHg BP Diastolic 60 mmHg Heart Rate 72 /min Weight 168.00 lb 03/31/2005 BP Systolic 100 mmHg BP Diastolic 60 mmHg Heart Rate 80 /min Body Temperature 98.5 F Weight 169.00 lb 09/15/2004 BP Systolic 94 mmHg BP Diastolic 60 mmHg Heart Rate 72 /min Body Temperature 99.2 F Weight 162.00 lb 09/08/2004 BP Systolic 90 mmHg BP Diastolic 60 mmHg Heart Rate 102 /min Body Temperature 99.2 F O2 % BldC Oximetry 99 % Weight 163.00 lb 09/03/2004 BP Systolic 118 mmHg BP Diastolic 78 mmHg Heart Rate 76 /min Body Temperature 99.3 F Weight 160.00 lb 01/14/2004 BP Systolic 110 mmHg BP Diastolic 68 mmHg Heart Rate 72 /min Weight 156.00 lb 09/05/2003 BP Systolic 102 mmHg BP Diastolic 68 mmHg Heart Rate 80 /min Weight 167.00 lb 08/06/2003 BP Systolic 100 mmHg BP Diastolic 72 mmHg Heart Rate 80 /min Weight 165.00 lb 07/23/2003 BP Systolic 104 mmHg BP Diastolic 74 mmHg Heart Rate 100 /min Weight 165.00 lb 05/16/2003 BP Systolic 102 mmHg BP Diastolic 70 mmHg Heart Rate 76 /min Weight 164.00 lb 03/14/2003 BP Systolic 100 mmHg BP Diastolic 64 mmHg Heart Rate 82 /min Weight 164.00 lb 05/11/2002 BP Systolic 100 mmHg BP Diastolic 70 mmHg Heart Rate 76 /min Body Temperature 97.4 F Weight 161.00 lb 03/29/2002 BP Systolic 102 mmHg BP Diastolic 70 mmHg Heart Rate 72 /min Weight 168.00 lb 02/05/2002 BP Systolic 110 mmHg BP Diastolic 72 mmHg Heart Rate 80 /min Weight 168.00 lb 01/15/2002 BP Systolic 120 mmHg BP Diastolic 70 mmHg Heart Rate 88 /min Weight 170.00 lb 01/01/2002 Heart Rate 96 /min Weight 173.00 lb 12/18/2001 BP Systolic 98 mmHg BP Diastolic 72 mmHg Heart Rate 80 /min Weight 166.31 lb 07/06/2001 BP Systolic 112 mmHg BP Diastolic 62 mmHg Heart Rate 80 /min Weight 166.00 lb Results Test Date Test Result H/L Range Note Laboratory test finding 03/02/2017 Clotest SEE RESULT BELOW 1, 2 Comp Metabolic Panel 12/28/2016 Sodium 139 mmol/L 133-145 3 Potassium 4.3 mmol/L 3.5-5.0 3 Chloride 106 mmol/L 101-111 3 Co2 Carbon Dioxide 28 mmol/L 22-32 3 Anion Gap 5 mmol/L 2-11 3 Glucose 92 mg/dL 70-100 3 Blood Urea Nitrogen 10 mg/dL 6-24 3 Creatinine 0.71 mg/dL 0.51-0.95 3 BUN/Creatinine Ratio 14.1 8-20 3 Calcium 9.5 mg/dL 8.6-10.3 3 Total Protein 6.8 g/dL 6.4-8.9 3 Albumin 4.1 g/dL 3.2-5.2 3 Globulin 2.7 g/dL 2-4 3 Albumin/Globulin Ratio 1.5 1-3 3 Total Bilirubin 0.60 mg/dL 0.2-1.0 3 Alkaline Phosphatase 75 U/L 34-104 3 Alt 35 U/L 7-52 3 Ast 40 U/L High 13-39 3 Egfr Non- 86.8 >60 3 Egfr 111.6 >60 3, 4 Laboratory test finding 12/28/2016 Lipase 22 U/L 11.0-82.0 3, 5 CBC Auto Diff 12/28/2016 White Blood Count 5.2 10^3/uL 3.5-10.8 3 Red Blood Count 4.35 10^6/uL 4.0-5.4 3 Hemoglobin 11.8 g/dL Low 12.0-16.0 3 Hematocrit 37 % 35-47 3 Mean Corpuscular Volume 84 fL 80-97 3 Mean Corpuscular Hemoglobin 27 pg 27-31 3 Mean Corpuscular HGB Conc 32 g/dL 31-36 3 Red Cell Distribution Width 15 % 10.5-15 3 Platelet Count 206 10^3/uL 150-450 3 Mean Platelet Volume 10 um3 7.4-10.4 3 Abs Neutrophils 3.5 10^3/uL 1.5-7.7 3 Abs Lymphocytes 1.1 10^3/uL 1.0-4.8 3 Abs Monocytes 0.4 10^3/uL 0-0.8 3 Abs Eosinophils 0.2 10^3/uL 0-0.6 3 Abs Basophils 0 10^3/uL 0-0.2 3 Abs Nucleated RBC 0 10^3/uL 3 Granulocyte % 66.4 % 38-83 3 Lymphocyte % 20.3 % Low 25-47 3 Monocyte % 8.1 % 1-9 3 Eosinophil % 4.7 % 0-6 3 Basophil % 0.5 % 0-2 3 Nucleated Red Blood Cells % 0.1 3 Comp Metabolic Panel 10/18/2016 Sodium 137 mmol/L 133-145 Potassium 4.2 mmol/L 3.5-5.0 Chloride 103 mmol/L 101-111 Co2 Carbon Dioxide 27 mmol/L 22-32 Anion Gap 7 mmol/L 2-11 Glucose 98 mg/dL 70-100 Blood Urea Nitrogen 9 mg/dL 6-24 Creatinine 0.77 mg/dL 0.51-0.95 BUN/Creatinine Ratio 11.7 8-20 Calcium 9.5 mg/dL 8.6-10.3 Total Protein 7.3 g/dL 6.4-8.9 Albumin 4.1 g/dL 3.2-5.2 Globulin 3.2 g/dL 2-4 Albumin/Globulin Ratio 1.3 1-3 Total Bilirubin 0.90 mg/dL 0.2-1.0 Alkaline Phosphatase 68 U/L 34-104 Alt 52 U/L 7-52 Ast 51 U/L High 13-39 Egfr Non- 79.0 >60 Egfr 101.6 >60 6 CBC Auto Diff 10/18/2016 White Blood Count 6.0 10^3/uL 3.5-10.8 Red Blood Count 4.84 10^6/uL 4.0-5.4 Hemoglobin 12.8 g/dL 12.0-16.0 Hematocrit 40 % 35-47 Mean Corpuscular Volume 83 fL 80-97 Mean Corpuscular Hemoglobin 26 pg Low 27-31 Mean Corpuscular HGB Conc 32 g/dL 31-36 Red Cell Distribution Width 15 % 10.5-15 Platelet Count 201 10^3/uL 150-450 Mean Platelet Volume 9 um3 7.4-10.4 Abs Neutrophils 4.3 10^3/uL 1.5-7.7 Abs Lymphocytes 1.1 10^3/uL 1.0-4.8 Abs Monocytes 0.3 10^3/uL 0-0.8 Abs Eosinophils 0.2 10^3/uL 0-0.6 Abs Basophils 0 10^3/uL 0-0.2 Abs Nucleated RBC 0 10^3/uL Granulocyte % 71.8 % 38-83 Lymphocyte % 18.9 % Low 25-47 Monocyte % 5.6 % 1-9 Eosinophil % 3.1 % 0-6 Basophil % 0.6 % 0-2 Nucleated Red Blood Cells % 0.1 Laboratory test finding 10/18/2016 Urine Culture And SEE RESULT BELOW 7 Sensitivities Urinalysis Profile 10/18/2016 Urine Color Yellow Urine Appearance Clear Urine Specific [place] 1.008 Low 1.010-1.030 Urine pH 7.0 5-9 Urine Urobilinogen Negative Negative Urine Ketones Negative Negative Urine Protein Negative Negative Urine Leukocytes 1+ Negative Urine Blood Negative Negative Urine Nitrite Negative Negative Urine Bilirubin Negative Negative Urine Glucose Negative Negative Urine White Blood Cell Trace(0-5/hpf) Absent Urine Red Blood Cell Trace(0-2/hpf) Absent Urine Bacteria Absent Absent Urine Squamous Epithelial Cell Present Absent Laboratory test finding 09/23/2016 Surgical Interface SEE RESULT BELOW 8 Order Laboratory test finding 02/11/2016 Uric Acid 4.9 mg/dL 2.5-9.2 Complete Blood Count 02/11/2016 WBC 5.0 x10^3/UL 3.6-9.6 RBC 4.47 x10^6/UL 3.90-5.70 HGB 12.3 g/dL 12.1-17.2 HCT 36 % 36-50 MCV 81.0 fL Low 82.2-97.4 MCH 27.5 pg Low 27.6-33.3 MCHC 34.0 g/dL 33.0-35.5 RDW 13.5 % 11.6-13.7 PLT 191 x10^3/UL 150-400 MPV 8.0 fL 7.4-10.4 Gran # 3.5 x10^3/UL 1.5-7.2 Lymph# 1.3 x10^3/UL 0.7-4.9 [place]# 0.2 x10^3/UL 0.1-0.9 Gran % 66.7 % 42.2-75.2 Lymph % 27.4 % 20.5-51.1 [place]% 5.9 % 1.7-9.3 Laboratory test finding 02/11/2016 Sedimentation Rate 16 mm Marah Panel-LD ([facility]) 02/11/2016 Antinuclear Antibodies, Ifa Negative 9, 10 Anti-dsDNA Antibodies <1 IU/mL 0-9 9, 11 Hla B 27 Disease Association Negative 9, 12 Sjogren's AB, Anti-SS-A/-SS-B 02/11/2016 Sjogren's Anti-SS-A <0.2 AI 0.0- 0.9 9 Sjogren's Anti-SS-B <0.2 AI 0.0-0.9 9 Rheumatoid Arthritis Factor 02/11/2016 Ra Latex Turbid. 6.7 IU/mL 0.0- 13.9 9 ([facility]) Antiextractable Nuclear Antigens 02/11/2016 SUPPLEMENTAL NURSE Antibodies 0.2 AI 0.0- 0.9 9 Luther Antibodies <0.2 AI 0.0-0.9 9 CCP Abs Igg/Iga 02/11/2016 CCP Antibodies IgG/IgA 6 units 0-19 9, 13 Laboratory test 02/11/2016 C-Reactive Protein, 2.0 mg/L 0.0-4.9 9 finding Quant Pap W/RFX High Risk 05/28/2015 Diagn See Comment: 14 HPV Adeq See Comment: 15 [email or web address] See Comment: 16 Perfor See Comment: 17 Comm . Note See Comment: 18 Iglbp See Comment: 19 Reflex See Comment: 20 Laboratory test finding 05/28/2015 PDF [id number] SEE IMAGE Comprehensive Metabolic Prof 12/09/2014 Sodium 140 mEq/L 134-149 Potassium 4.4 mEq/L 3.6-5.5 Chloride 103 mEq/L 94-112 Carbon Dioxide 26 mEq/L 21-32 Glucose 100 mg/dL 70-105 BUN 7 mg/dL 6-26 Creatinine 0.8 mg/dL 0.6-1.4 BUN/Creat Ratio 8.8 CALC 8.0-36.0 Calcium 8.9 mg/dL 8.6-10.2 Total Protein 6.5 g/dL 6.4-8.3 Albumin 4.2 g/dL 3.8-5.5 Globulin 2.3 g/dL 2.0-4.8 A/G Ratio 1.8 CALC 0.6-2.3 Alk. Phosphatase 65 U/L 30-110 Alt (SGPT) 15 U/L 7-35 Ast (Sgot) 21 U/L 5-34 Total Bilirubin 0.8 mg/dL 0.2-1.3 GFR Non- >60 ml/min/1.73m^ >=60 GFR >60 ml/min/1.73m^ >=60 Lipid Profile 12/09/2014 Cholesterol 229 mg/dL High 120-200 Triglycerides 91 mg/dL 30-200 HDL Cholesterol 54 mg/dL 30-85 LDL (Calculated) 157 CALC High 0-129 VLDL Cholesterol 18 mg/dL 0-50 HDL Risk Factor 4.2 CALC 0.0-4.4 Laboratory test finding 08/26/2014 TSH 1.02 mIU/L 0.50-6.00 Free T4 1.05 ng/dL 0.75-1.54 Laboratory test finding 08/26/2014 Marah (Antinuclear Negative Negative 21 Antibodies) Rheumatoid Factor <15 IU/mL <15 22 Lyme Western Blot 08/26/2014 Lyme Disease IgG Ab WB Negative Negative Lyme Disease IgG Bands Present p66, p41, p23, kDa Lyme Disease IgM Ab WB Negative Negative Lyme Disease IgM Bands Present No bands detecte <SEE NOTE> kDa 23 Lyme Disease Interpretation See Comment 24 Laboratory test finding 08/26/2014 C Reactive Protein 1.94 mg/L < 5.00 25 Laboratory test finding 08/26/2014 Sed Rate 17mm (Fma/CMC/[facility]rex) Lipid Profile 06/14/2011 Cholesterol 213 mg/dL High 120-200 HDL 41 mg/dL 30-85 Triglycerides 60 mg/dL 30-200 HDL Risk Factor 5.2 CALC High 0.0-4.0 LDL (Calculated) 160 CALC High 0-129 VLDL (Calculated) 12 mg/dL 0-50 Comprehensive Metabolic Prof 06/14/2011 Albumin 4.7 g/dL 3.8-5.5 Alk. Phos. 60 U/L 30-110 Alt (SGPT) 21 U/L 7-35 Ast (Sgot) 22 U/L 5-34 BUN 11 mg/dL 6-26 Calcium 9.9 mg/dL 8.6-10.2 Chloride 105 mEq/L 94-112 Creatinine 0.9 mg/dL 0.6-1.4 Carbon Dioxide 24 mEq/L 21-32 Glucose 98 mg/dL 70-105 Sodium 141 mEq/L 134-149 Total Bilirubin 0.4 mg/dL 0.2-1.3 Total Protein 7.3 g/dL 6.3-8.1 Potassium 4.5 mEq/L 3.6-5.5 Globulin 2.6 g/dL 2.0-4.8 A/G Ratio 1.8 Calc 0.6-2.2 BUN/Creat Ratio 11.6 Calc 8.0-36.0 Surgical 09/16/2009 Surgical Pathology <SEE 26 Pathology NOTE> Lipid Profile 03/25/2009 Cholesterol 234 mg/dL High 120-200 HDL 42 mg/dL 30-85 Triglycerides 111 mg/dL 30-200 HDL Risk Factor 5.6 CALC 4.2-7.0 LDL (Calculated) 170 CALC High 0-129 VLDL (Calculated) 22 mg/dL 0-50 Comprehensive Metabolic Prof 03/25/2009 Albumin 4.4 g/dL 3.8-5.5 Alk. Phos. 65 U/L 30-110 Alt (SGPT) 19 U/L 7-35 Ast (Sgot) 18 U/L 5-34 BUN 8 mg/dL 6-26 Calcium 9.4 mg/dL 8.6-10.2 Chloride 108 mEq/L 94-112 Creatinine 0.8 mg/dL 0.6-1.4 Carbon Dioxide 24 mEq/L 21-32 Glucose 84 mg/dL 70-105 Sodium 146 mEq/L 134-149 Total Bilirubin 0.4 mg/dL 0.2-1.3 Total Protein 6.9 g/dL 6.3-8.1 Potassium 4.7 mEq/L 3.6-5.5 Globulin 2.5 g/dL 2.0-4.8 A/G Ratio 1.7 Calc 0.6-2.2 BUN/Creat Ratio 10.1 Calc 8.0-36.0 Ua - Micro (Fma) 03/24/2009 Appearance CLEAR Color YELLOW Glucose, Urine (Fma/CMC/CTX) NEG Bilirubin NEG Ketones NEG SP Grav 1.015 Blood NEG PH 7.5 Protein NEG Urobil 0.2EU/DL Nitrite NEG Leukocytes (Fma/CMC/Centrex) SMALL Hyaline - /Lpf Granular - /Lpf WBC (Fma,Centrex) 3-6 RBC 0-1 Mucus (Fma/CBC/Centrex) - /Lpf Epith MOD /Lpf Bacteria 1+ /Hpf Amorphous (Fma/CMC/Centrex) - /Lpf Crystals, Fluid (Fma/CMC/CTX) - Laboratory test finding 03/24/2009 Urine Culture No growth. HCG () Urine 12/06/2008 Specific [place] 1.013 1.010-1.030 Urine NEGATIVE Negative 27 Laboratory test finding 08/23/2008 Hemoglobin A1c (a/CMC,CX) 5.6 % 4.1- 5.7 Glucose Random Whole Blood 85 60-105 Lipid Profile 02/20/2008 Cholesterol 249 mg/dL High 120-200 28 HDL 29 mg/dL Low 30-85 28 Triglycerides 109 mg/dL 30-200 28 HDL Risk Factor 8.6 CALC High 4.2-7.0 28 LDL (Calculated) 199 CALC High 0-129 28 VLDL (Calculated) 22 mg/dL 0-50 28 Comprehensive Metabolic Prof 02/20/2008 Albumin 4.0 g/dL 3.8-5.5 28 Alk. Phos. 62 U/L 30-110 28 Alt (SGPT) 12 U/L 7-35 28 Ast (Sgot) 17 U/L 5-34 28 BUN 11 mg/dL 6-26 28 Calcium 9.5 mg/dL 8.6-10.2 28 Chloride 102 mEq/L 94-112 28 Creatinine 1.0 mg/dL 0.6-1.4 28 Carbon Dioxide 24 mEq/L 21-32 28 Glucose 99 mg/dL 70-105 28 Sodium 139 mEq/L 134-149 28 Total Bilirubin 0.7 mg/dL 0.2-1.3 28 Total Protein 7.4 g/dL 6.3-8.1 28 Potassium 4.2 mEq/L 3.6-5.5 28 Globulin 3.4 g/dL 2.0-4.8 28 A/G Ratio 1.2 Calc 0.6-2.2 28 BUN/Creat Ratio 10.6 Calc 8.0-36.0 28 Lipid Profile 10/10/2007 Cholesterol 234 mg/dL High 120-200 28 HDL 24 mg/dL Low 30-85 28 Triglycerides 112 mg/dL 30-200 28 HDL Risk Factor 9.7 CALC High 4.2-7.0 28 LDL (Calculated) 188 CALC High 0-129 28 VLDL (Calculated) 22 mg/dL 0-50 28 Comprehensive Metabolic Prof 10/10/2007 Albumin 4.1 g/dL 3.8-5.5 28 Alk. Phos. 69 U/L 30-110 28 Alt (SGPT) 16 U/L 7-35 28 Ast (Sgot) 25 U/L 5-34 28 BUN 10 mg/dL 6-26 28 Calcium 9.2 mg/dL 8.6-10.2 28 Chloride 103 mEq/L 94-112 28 Creatinine 1.0 mg/dL 0.6-1.4 28 Carbon Dioxide 26 mEq/L 21-32 28 Glucose 90 mg/dL 70-105 28 Sodium 139 mEq/L 134-149 28 Total Bilirubin 0.6 mg/dL 0.2-1.3 28 Total Protein 6.7 g/dL 6.3-8.1 28 Potassium 4.7 mEq/L 3.6-5.5 28 Globulin 2.6 g/dL 2.0-4.8 28 A/G Ratio 1.5 Calc 0.6-2.2 28 BUN/Creat Ratio 10.9 Calc 8.0-36.0 28 GC/Chlamydia Probe, Urine 09/25/2007 Chlamydia Amplified Probe NEGATIVE GC Amplified Probe NEGATIVE Laboratory test finding 09/07/2007 Quickstrep NEGATIVE Negative Throat - Beta Strep Fma NEGATIVE @ 48HRS Complete Blood Count 03/14/2007 WBC 7.0 x10\\S\\3/uL 3.6-9.6 Gran# 4.6 x10\\S\\3/uL 1.5-7.2 Gran% 65.9 % 42.2-75.2 HCT 41 % 36-50 HGB 13.7 g/dL 12.1-17.2 Lymph# 1.8 x10\\S\\3/uL 0.7-4.9 Lymph% 26.2 % 20.5-51.1 MCH 27.6 pg 27.6-33.3 MCV 83.3 fL 82.2-97.4 MCHC 33.2 g/dL 33.0-35.5 Mo# 0.6 x10\\S\\3/uL 0.1-0.9 Mo% 7.9 % 1.7-9.3 MPV 9.8 fL 7.4-10.4 PLT 183 x10\\S\\3/uL 150-400 RBC 4.96 x10\\S\\6/uL 3.90-5.70 RDW 12.8 % 11.6-13.7 Laboratory test finding 03/14/2007 TSH 3.03 mIU/L 0.50-6.00 Free T4 1.33 ng/dL 0.75-1.54 GC/Chlamydia Probe, Urine 03/14/2007 Chlamydia Amplified Probe NEGATIVE GC Amplified Probe NEGATIVE Laboratory test finding 01/12/2007 TSH 2.30 mIU/L 0.50-6.00 28 Lipid Profile 01/12/2007 Cholesterol 236 mg/dL High 120-200 28, 29 HDL 41 mg/dL 30-85 28 Triglycerides 97 mg/dL 30-200 28, 30 HDL Risk Factor 5.8 CALC 4.2-7.0 28 LDL (Calculated) 176 CALC High 0-129 28 VLDL (Calculated) 19 mg/dL 0-50 28 Liver Profile-ALL Lab [place] 06/13/2006 Albumin (a/[facility]) 4.5 3.8-5.5 Total Protein 7.6 g/dL 6.3-8.1 Alkaline Phosphatase (F/C/CTX) 59 U/L 30-110 Ast (Sgot) (a/[facility]/Centrex) 23 U/mL 5-34 Alt (SGPT) (CMC/Centrex/FF) 18 10-40 Bilirubin, Total 0.5 mg/dL 0.2-1.3 Bilirubin, Direct 0.3 mg/dL 0-0.6 Bilirubin, Indirect 0.23 ml/dl 0.10-1.0 Lipid Panel-ALL Lab 06/13/2006 Cholesterol (Fma/CMC/Centrex) 174 mg/dL 120-200 Companies HDL-Chol 30 mg/dL 30-85 Triglyceride 100 mg/dL 30-200 LDL/HDL Chol. Ratio (F/C/CTX) - Chol./HDL Ratio (Fma/CMC/CTX) - Low 30-85 LDL, Calculated (Centrex) 123 mg/dL 0-129 HDL Risk Factor (Fma) 5.8 CALC 4.2-7.0 Comp Metabolic-ALL Lab 04/16/2006 Glucose, Serum 86 mg/dL 70-105 Compani (Fma/CMC/CTX) BUN (Fma/CMC/Centrex) 9 mg/dL 6-26 Creatinine (Fma/CMC/CTX) 0.8 mg/dL 0.6-1.4 Sodium 142 134-149 Potassium 5.1 3.6-5.5 Chloride 107 mEq/L 94-112 Co2 27 21-32 Albumin (Fma/CMCC/Centrex) 4.3 3.8-5.5 Total Protein 7.6 g/dL 6.3-8.1 Calcium (Fma/CMC/Centrex) 9.3 mg/dL 8.6-10.2 Alkaline Phosphatase (F/C/CTX) 57 U/L 30-110 Ast (Sgot) (Fma/CMC/Centrex) 18 U/mL 5-34 Alt (SGPT) (CMC/Centrex) 17 10-40 Bilirubin, Total 0.7 mg/dL 0.2-1.3 #GFR, Calculated (CTX) - Lipid Panel-ALL Lab 04/16/2006 Cholesterol 267 mg/dL High 120-200 Companies (Fma/CMC/Centrex) HDL-Chol 31 mg/dL 30-85 Triglyceride 74 mg/dL 30-200 LDL/HDL Chol. Ratio (F/C/CTX) - Chol./HDL Ratio (Fma/CMC/CTX) - Low 30-85 LDL, Calculated (Centrex) 221 mg/dL High 0-129 HDL Risk Factor (Fma) 8.6 CALC High 4.2-7.0 Laboratory test finding 04/16/2006 TSH (a/CMC/Centrex) 1.59 uIU/ml 0.5- 6.0 CBC Electronic-ALL Lab 04/16/2006 WBC 5.5 3.6-9.6 Compani RBC 4.87 3.90-5.70 Hemoglobin (Fma/CMC/CTX) 13.0 g/dL 12.1 - 17.2 Hematocrit (Fma/CMC/CTX) 39.5 % 36.1 - 50.3 Mean Corpuscular Vol 81.0 Low 82.2-97.4 Mean Corpuscular Hemaglobin 26.7 Low 27.6-33.3 Mean Corpuscular Hemo Concen 32.9 Low 33.0-36.0 RDW 13.5 11.6-13.7 Platelets 210. 10^3/ul 150-400 Mean Platelet Volume 9.1 7.4-10.4 Neutrophils 68.5 42.2-75.2 Lymphocytes 24.9 % 20.5 - 51.1 Monocytes 6.6 % 1.7-9.3 Eosinophil - Basophil% - Abs Neutrophils - Abs Lymphs - Abs Mononuclear - Abs Eosinophils - Abs Basophils - Ua - Micro ([facility]) 04/11/2006 Appearance CLEAR Color YELLOW Glucose NEGATIVE Bilirubin NEGATIVE Ketones NEGATIVE SP Grav 1.015 Blood TRACE Current PH 8.0 Protein, Random Urine NEGATIVE Urobil 0.2 Nitrite NEGATIVE Leukocytes (a/CMC/Centrex) NEGATIVE Hyaline - /Lpf Granular - /Lpf WBC ([facility]) 0-1 RBC, Fluid 0-3 Mucus - /Lpf Epith OCC /Lpf Bacteria - /Hpf Amorphous - /Lpf Crystals, Urine (Fma/CMC/CTX) - /Lpf Misc - Ua - Micro ([facility]) 08/17/2005 Appearance CLEAR 31 Color LIGHT YELLOW 31 Glucose, Urine (Fma/CMC/CTX) NEGATIVE 31 Bilirubin NEGATIVE 31 Ketones NEGATIVE 31 SP Grav 1.010 31 Blood TRACE LMP: 3-4 MTHS Ao 31 PH 6.0 31 Protein, Random Urine NEGATIVE 31 Urobil 0.2 31 Nitrite NEGATIVE 31 Leukocytes (Fma/CMC/Centrex) NEGATIVE 31 Hyaline - /Lpf 31 Granular - /Lpf 31 WBC (Fma,Centrex) 2-4 31 RBC, Fluid 2-4 31 Mucus (Fma/CBC/Centrex) - /Lpf 31 Epith OCC /Lpf 31 Bacteria RARE /Hpf 31 Amorphous (Fma/CMC/Centrex) - /Lpf 31 Crystals, Urine (Fma/CMC/CTX) - /Lpf 31 Z#Comments - 31 Urine ([facility]) 08/17/2005 SP Grav 1.010 31 Urine, (Fma/CMC/CTX) NEGATIVE 31 Basic Metabolic (a) 08/12/2005 Glucose, Serum (Fma/CMC/CTX) 96 mg/dL 70 -105 BUN (Fma/CMC/Centrex) 12 mg/dL 6-26 Creatinine (Fma/CMC/CTX) 0.7 mg/dL 0.6-1.4 BUN/Creatinin Ratio 17.0 8.0-36 Sodium 144 134-149 Potassium 4.0 3.6-5.5 Chloride 102 mEq/L 94-112 Co2 26 21-32 Calcium (Fma/CMC/[facility]rex) 9.4 mg/dL 8.6-10.2 Laboratory test finding 08/12/2005 TSH (Fma/CMC/[facility]rex) 2.60 uIU/ml 0.5- 6.0 CBC Electronic (a) 08/12/2005 WBC 7.0 3.6-9.6 Lymphocytes 29.0 % 20.5 - 51.1 Monocytes 7.6 % 1.7-9.3 Granulocytes 63.4 % 42.2 - 75.2 Lymphocytes 2.0 10^3/uL 0.7 - 4.9 Monocytes 0.5 10^3/uL 0.1 - 0.9 Granulocytes 4.4 10^3/uL 1.5 - 7.2 RBC 5.44 3.90-5.70 Hemoglobin (Fma/CMC/CTX) 14.5 g/dL 12.1 - 17.2 Hematocrit (Fma/CMC/CTX) 43.4 % 36.1 - 50.3 Mean Corpuscular Vol 79.8 Low 82.2-97.4 Mean Corpuscular Hemaglobin 26.6 Low 27.6-33.3 Mean Corpuscular Hemo Concen 33.4 33.0-36.0 RDW 12.3 11.6-13.7 Platelets 252. 10^3/ul 150-400 Mean Platelet Volume 10.2 7.4-10.4 CBC Electronic ([facility]) 09/03/2004 WBC 8.9 3.6-9.6 Lymphocytes 29.9 % 20.5 - 51.1 Monocytes 5.6 % 1.7-9.3 Granulocytes 64.5 % 42.2 - 75.2 Lymphocytes 2.7 10^3/uL 0.7 - 4.9 Monocytes 0.5 10^3/uL 0.1 - 0.9 Granulocytes 5.7 10^3/uL 1.5 - 7.2 RBC 4.96 3.90-5.70 Hemoglobin (Fma/CMC/CTX) 12.9 g/dL 12.1 - 17.2 Hematocrit (Fma/CMC/CTX) 39.3 % 36.1 - 50.3 Mean Corpuscular Vol 79.1 Low 82.2-97.4 Mean Corpuscular Hemaglobin 25.9 Low 27.6-33.3 Mean Corpuscular Hemo Concen 32.8 Low 33.0-36.0 RDW 13.3 11.6-13.7 Platelets 204. 10^3/ul 150-400 Mean Platelet Volume 8.8 7.4-10.4 1 [id number] 2 SEE RESULT BELOW Name: SERGEI RUSSO : [address]: Gera Moffett MD Acct: [id number] Unit: [id number] AGE: 51 Location: [facility] Re03/02/17 SEX: F Status: DEP REF SPEC: [id number] STEPHEN: 03/02/[address]: Gera Moffett MD REQ: [id number] RECD: 03/02/17 STATUS: KARTHIK CARIAS DR: Jair Paredes MD _ SOURCE: GAS ANTRUM SPDES: ORDERED: Clotest COMMENTS: [id number] Procedure Result Reported Site Clotest Final 03/03/17724 ML Clotest Positive * ML - MAIN LAB ([facility]) . END OF REPORT * ML=Testing performed at Main Lab DEPARTMENT OF PATHOLOGY, [address] [place] [address] Alejandro Peacock M.D. Director [facility] # [id number] 3 [id number] 4 Because ethnic data is not always readily available, this report includes an eGFR for both -Americans and non- Americans. The National Kidney Disease Education Program (NKDEP) does not endorse the use of the MDRD equation for patients that are not between the ages of 18 and 70, are , have extremes of body size, muscle mass, or nutritional status, or are non- or non-. According to the National Kidney Foundation, irrespective of diagnosis, the stage of the disease is based on the level of kidney function: Stage Description GFR(mL/min/1.73 m(2)) 1 Kidney damage with normal or decreased GFR 90 2 Kidney damage with mild decrease in GFR 60-89 3 Moderate decrease in GFR 30-59 4 Severe decrease in GFR 15-29 5 Kidney failure <15 (or dialysis) 5 [id number] 6 Because ethnic data is not always readily available, this report includes an eGFR for both -Americans and non- Americans. The National Kidney Disease Education Program (NKDEP) does not endorse the use of the MDRD equation for patients that are not between the ages of 18 and 70, are , have extremes of body size, muscle mass, or nutritional status, or are non- or non-. According to the National Kidney Foundation, irrespective of diagnosis, the stage of the disease is based on the level of kidney function: Stage Description GFR(mL/min/1.73 m(2)) 1 Kidney damage with normal or decreased GFR 90 2 Kidney damage with mild decrease in GFR 60-89 3 Moderate decrease in GFR 30-59 4 Severe decrease in GFR 15-29 5 Kidney failure <15 (or dialysis) 7 SEE RESULT BELOW Name: SERGEI RUSSO : [address]: Rakesh Varma MD Acct: [id number] Unit: [id number] AGE: 50 Location: ED Re10/18/16 SEX: F Status: DEP ER SPEC: [id number] STEPHEN: 10/18/16-[address] [facility] [address]: Jenifer CHRISTIANSON REQ: [id number] RECD: 10/18/16 STATUS: KARTHIK CARIAS DR: Rakesh Paredes MD _ S[facility] ORDERED: Urine Culture Procedure Result Reported Site Urine Culture Final 10/19/16- 1203 ML No Growth (<1,000 CFU/mL) * ML - MAIN LAB ([facility]) . END OF REPORT * ML=Testing performed at Main Lab DEPARTMENT OF PATHOLOGY, [address] [place] [address] Alejandro Peacock M.D. Director [facility] # [id number] 8 SEE RESULT BELOW Name: SERGEI RSUSO : [address]: Gera Moffett MD Acct: [id number] Unit: [id number] AGE: 50 Location: ENDO Re09/23/16 SEX: F Status: REG REF SPEC: [id number] STEPHEN: 09/23/16-[address] [facility] [address]: Gera Moffett MD REQ: [id number] RECD: 09/23/16-113 STATUS: ARTEMIO CARIAS DR: Jair Paredes MD _ ORDERED: LEVEL 4/4 FINAL DIAGNOSIS 1. Colon, right, biopsies: -- Large intestinal mucosa with mild architectural disorder. -- No evidence of microscopic/lymphocytic colitis, collagenous colitis, or other chronic inflammatory bowel process identified. 2. Colon, descending, biopsy: -- Large intestinal mucosa with no significant pathologic abnormality. 3. Colon, sigmoid, biopsies: -- Large intestinal mucosa with focal acute superficial colitis with cryptitis, intramucosal hemorrhage and lamina propria muciphages. -- Mild architectural disorder compatible with repair noted. See comment. 4. Colon, rectum, biopsy: -- Large intestinal mucosa with focal acute superficial colitis with cryptitis, intramucosal hemorrhage and lamina propria muciphages. -- Mild architectural disorder compatible with repair noted. See comment. Comment: The findings are nonspecific and may represents an acute self-limited process. Incipient or subclinical chronic inflammatory bowel disease cannot be excluded. Clinical and colonoscopic correlation is recommended. CLINICAL HISTORY Constipation POST-OPERATIVE DIAGNOSIS Colonoscopy to cecum with ease - minute splotchy erythema 0-25, no erosions. Conclusions/Plan: Generally normal colon and terminal ileum; constipation CONTINUED ON NEXT PAGE * ML=Testing performed at Main Lab DEPARTMENT OF PATHOLOGY, [address] [place] [address] Alejandro Peacock M.D. Director [facility] # [id number] RUN DATE: 09/24/16 [facility] LAB LIVE PAGE 2 Patient: SERGEI RUSSO [id number] (Continued) GROSS DESCRIPTION (Continued) GROSS DESCRIPTION 1. The specimen is received in formalin labeled, Right Colon Biopsies, and consists of two john irregular soft tissue fragments measuring 0.5 x 0.2 x 0.1 cm and 0.6 x 0.4 x 0.1 cm which are submitted entirely in one cassette. 2. The specimen is received in formalin labeled, Descending Colon Biopsies , and consists of two john irregular soft tissue fragments measuring 0.3 x 0.3 x 0.2 cm and 0.6 x 0.2 x 0.1 cm which are submitted entirely in one cassette. 3. The specimen is received in formalin labeled, Biopsy Sigmoid Erythema, and consists of three john-pink irregular soft tissue fragments measuring 0.2 x 0.1 by less than 0.1 cm to 0.6 x 0.3 x 0.1 cm which are submitted entirely in one cassette. 4. The specimen is received in formalin labeled, Biopsy Rectal Erythema, and consists of two john-pink irregular soft tissue fragments measuring 0.5 x 0.2 x 0.1 cm and 0.6 x 0.3 x 0.1 cm which are submitted entirely in one cassette. Signed (signature on file) Alejandro Peacock MD [id number] END OF REPORT * ML=Testing performed at Main Lab DEPARTMENT OF PATHOLOGY, [address] [place] [address] Alejandro Peacock M.D. Director [place] # [id number] 9 2 sst 10 Negative <1:80 Borderline 1:80 Positive >1:80 11 Negative <5 Equivocal 5 - 9 Positive >9 12 HLA-B*27 Negative HLA allele interpretation for all loci based on IMGT/HLA database version 3.21.0 HLA Lab CLIA ID Number [id number] This test was performed using PCR (Polymerase Chain Reaction)/SSOP (Sequence Specific Oligonucleotide Probes) technique. SBT (Sequence Based Typing) and/or SSP (Sequence Specific Primers) may be used as supplemental methods when necessary. Please contact HLA Customer Service at if you have any questions. Director of HLA Laboratory Dr Betito Ortiz, PhD 13 Negative <20 Weak positive 20 - 39 Moderate positive 40 - 59 Strong positive >59 14 NEGATIVE FOR INTRAEPITHELIAL LESION AND MALIGNANCY. 15 Satisfactory for evaluation. Endocervical and/or squamous metaplastic cells (endocervical component) are present. 16 Z12.4 17 Penny Saravia, Pulverizer Tender ([facility] [place]) 18 The Pap smear is a screening test designed to aid in the detection of premalignant and malignant conditions of the uterine cervix. It is not a diagnostic procedure and should not be used as the sole means of detecting cervical cancer. Both false-positive and false-negative reports do occur. 19 This liquid based ThinPrep(R) pap test was screened with the use of an image guided system. 20 The HPV DNA reflex criteria were not met with this specimen result therefore, no HPV testing was performed. 21 3SST 22 Test Performed by: [place] [address] Sports Information Director: Marck Anderson II, M.D., Ph.D. 23 No bands detected 24 Specific serologic response to B. burgdorferi infection is not detected, but cannot rule out early infection during which low or undetectable antibody levels to B. burgdorferi may be present. If clinically indicated, a new serum specimen should be submitted in 7-14 days. ADDITIONAL INFORMATION CDC criteria require >=5 bands for IgG or >=2 bands for IgM for the Immunoblot to be considered positive. Bands (e.g.,p41) may be detected in patients without Lyme disease, and patterns not meeting the CDC criteria should be interpreted with caution. Immunoblot should be ordered only on specimens that are positive or equivocal by a FDA-licensed Lyme disease antibody screening test (e.g., EIA). Test Performed by: [facility] - [address] [address] Sports Information Director: Marck Anderson II, M.D., Ph.D. 25 Acute inflammation: >10.00 26 ---- RUN DATE: 09/18/09 [facility] NMI LIVE PAGE 1 RUN TIME: 1519 Specimen Inquiry RUN USER: INTERFACE -- Name: SERGEI RUSSO Status: REG REF Re09/16/09 Age/Sex: 43/F Unit#: [id number] Location: [facility]. : 63 -- Specimen: [id number] SOUT Spec Date: 09/16/[address]: Gera galicia MD Spec Type: SURGICAL P Received: 09/17/09-2342 Copies to: Jair montgomery MD SPECIMEN BIOPSY SIGMOID COLON HISTORY POST-OP DIAGNOSIS: Normal colon and terminal ileum, multiple symptoms - i rritable bowel syndrome CLINICAL INFORMATION: Bright red blood per rectum, bloating, past hiatal hernia repair GROSS DESCRIPTION Specimen received in formalin labelled Sergei Russo, Biopsy Sigmoid Colon, and consists of two fragments of john-yellow tissue measuring in aggregate 0.5 x 0.4 x 0.3 cm. Submitted entirely, one cassette. DIAGNOSIS Sigmoid colon, biopsy: Colonic mucosa with evidence of previous damage with increased chronic inflammatory cells within the lamina propria and surface epithelium and muciphages (see comment). COMMENT There is no evidence of chronicity in this biopsy. There is evidence of previous damage, as described above, but the etiology of it cannot be established in this biopsy. Follow up is recommended. Signed Electronically by: DANIEL JONES 09/18/09 1519 -- -- DEPARTMENT OF PATHOLOGY, [address] [place] [address] [facility] Permit #[id number] Alejandro Peacock M.D. Director Daniel Jones M.D. Mail Forward[employer] System Markup Clerk Dir franco -- 27 If is still suspected, please repeat test after 48 to 72 hours. . 28 FASTING 29 RESULT VERIFIED BY REPEAT ANALYSIS 30 RESULT VERIFIED BY REPEAT ANALYSIS 31 PATIENT ON DEPO-PROVERA Procedures Date CPT Code Description Status Comment 09/23/2016 Colonoscopy Completed 06/24/2015 Mammogram Completed 08/02/2013 Mammogram Completed 02/16/2013 16471 Dxa Bone Density Vertebarl FX Completed Assessment 02/16/2013 30813 Dxa Bone Density Study One Or Completed More Sites Axial Skeleton 02/26/2011 Mammogram Completed 04/02/2009 Mammogram Completed 03/28/2009 Colonoscopy Completed follow-up 2020 per [facility] 11/10/2007 Mammogram Completed 04/11/2006 06805 Electrocardiogram Complete Completed Encounters Type Date Location Provider CPT E/M Dx Office Visit 04/20/2017 2:15p [place] [address] J06.9 J45.901 Office Visit 12/29/2016 3:15p [place] [address] R10.11 Office Visit 02/11/2016 2:00p [facility] Jair Paredes M.D. 22598 M25.50 Office Visit 05/28/2015 8:30a [facility] SINTIA Ding 74808 Z01.419 Office Visit 03/13/2015 8:30a Main Office SINTIA Ding 04420 Z23 Z71.89 J45.30 Office Visit 01/16/2015 9:00a [facility] Didier Hensley M.D. 38236 M19.049 Office Visit 12/09/2014 9:40a Main Office Didier Hensley M.D. 01889 716.59 088.81 272.4 Office Visit 11/15/2014 9:40a Main Office Didier Hensley M.D. 63573 716.59 716.94 Office Visit 10/28/2014 9:10a Main Office Didier Hensley M.D. 89536 088.81 716.59 Office Visit 10/01/2014 9:00a Main Office Didier Hensley M.D. 42467 716.59 088.81 Office Visit 09/09/2014 9:10a Main Office Didier Hensley M.D. 10453 716.59 088.81 Office Visit 08/26/2014 8:40a Main Office Didier Hensley M.D. 71215 716.94 727.03 Office Visit 02/06/2013 5:30p Main Office SINTIA Ding 80237 724.5 Office Visit 11/06/2012 11:00a Main Office Fercho Mendoza 75472 461.8 Office Visit 09/18/2012 12:45p [place] [address] 461.1 Office Visit 04/13/2012 9:45a Main Office Tamara Bess Afnp-C 42917 706.2 564.1 Office Visit 12/14/2011 9:10a [facility] Jair Paredes M.D. 66776 V65.8 V04.0 V03.81 V05.8 Office Visit 09/21/2011 1:00p [facility] Ramona Valdez Afnp-C 68743 706.2 Office Visit 06/14/2011 9:40a [facility] Jair Paredes M.D. 96548 272.4 Office Visit 12/30/2010 9:30a Main Office Cifuentesnp-C 03595 384.23 465.9 477.9 Office Visit 12/09/2010 9:30a Main Office Ramona Valdez Andre-C 41002 384.23 477.9 Office Visit 11/18/2010 2:15p Main Office Cifuentesnp-C 50780 382.01 Office Visit 03/24/2009 1:20p [facility] Jair Paredes M.D. 14878 V70.0 272.4 493.90 V06.5 v06.5 Office Visit 10/29/2008 9:40a Main Office Pa Cat M.D. 35714 719.44 Office Visit 10/15/2008 10:50a [facility] Jair Paredes M.D. 24387 460 Office Visit 08/23/2008 9:30a Main Office Ramona Valdez Taylernp-C 49551 V18.0 995.3 272.4 Office Visit 04/15/2008 1:30p Main Office LUIS A MeyersP 34404 787.99 Office Visit 03/15/2008 9:15a Main Office SINTIA Meyers 66752 530.81 564.00 Office Visit 02/28/2008 9:30a Main Office SINTIA Meyers 61025 530.81 564.00 272.4 Office Visit 02/20/2008 9:30a Main Office Jair Paredes M.D. 25136 272.4 493.90 477.9 626.4 787.99 Office Visit 01/08/2008 7:45p Main Office Elba Swan [facility] 16626 034.0 Office Visit 11/14/2007 9:10a Main Office Jair Paredes M.D. 80002 272.4 626.4 493.90 Office Visit 10/10/2007 9:00a Main Office Jair Paredes M.D. 94757 V70.0 V76.10 272.4 626.4 477.9 493.90 782.0 Office Visit 09/25/2007 3:30p Main Office Elba Swan [facility] 89619 626.8 Office Visit 09/07/2007 11:30a [facility] Office Elba Swan [facility] 21332 477.9 462 Office Visit 03/14/2007 10:00a [facility] Andre Mendoza-C 33433 626.4 V75.9 Office Visit 02/02/2007 12:30p Main Office Tamara BessAndre-C 79574 272.4 Office Visit 12/14/2006 1:00p Main Office Patrick Jackson M.D. 56050 465.8 Office Visit 09/13/2006 10:45a [facility] Andre Mendoza-C 78865 386.10 372.30 Office Visit 08/12/2006 9:00a Main Office Elba Swan [facility] 75480 477.9 Office Visit 04/27/2006 10:20a Main Office Chelsea Odom M.D. 88717 272.4 780.4 Office Visit 04/11/2006 3:20p Main Office Chelsea Odom M.D. 33081 465.9 780.4 Office Visit 08/30/2005 5:10p Main Office Didier Hensley M.D. 77449 465.9 461.9 381.01 477.9 493.90 Office Visit 08/17/2005 11:15a [facility] Cifuentesnp-C 12655 626.0 599.7 723.1 Office Visit 08/09/2005 5:00p Main Office Didier Hensley M.D. 90472 465.9 461.9 386.11 493.90 466.0 780.79 Office Visit 06/23/2005 4:20p Main Office Didier Hensley M.D. 98889 723.1 724.5 726.19 Office Visit 03/31/2005 2:00p Main Office Giorgio Miranda M.D. 63614 493.90 Office Visit 09/15/2004 1:20p Main Office Giorgio Miranda M.D. 96478 486 477.9 Office Visit 09/08/2004 1:40p Main Office Giorgio Miranda M.D. 00228 486 477.9 Office Visit 09/03/2004 4:10p Main Office Giorgio Miranda M.D. 39412 486 477.9 Office Visit 01/14/2004 6:00p Main Office Miguel Ángel Herrera [facility] 69712 473.9 Office Visit 05/16/2003 6:40p Main Office Mk Hsu M.D. 60825 995.3 Office Visit 03/14/2003 6:40p Main Office Mk Hsu M.D. 00181 477.9 272.4 Office Visit 05/11/2002 3:45p Main Office Elba Swan [facility] 93468 708.9 Office Visit 03/29/2002 8:10p Main Office Mk Hsu M.D. 55699 782.1 Office Visit 07/06/2001 6:20p Main Office Mk Hsu M.D. 19813 Plan of Care 12/21/2017 - Marlin Zhu, INESD48.5 Neoplasm of uncertain behavior of skinComments:Please follow up with director government for further diagnosis and treatment.L01.00 Impetigo, unspecifiedNew Medication:Mupirocin 2 %Comments:Call [facility] if condition changes/worsens in any wayAllComments:1. Patient has been queried about patient's goals/preferences and functional/lifestyle goals at relevant visits. If relevant, describe: Has been discussed, noted above2. Treatment goals as explainedto the patient: see above3. Are there barriers to meeting treatment goals? Yes If Yes, please describe: Barriers include possible insurance limits, disease process, and difficulty with lifestyle changes4. Self-Management goals as described to the patient: Yes, see above As always, we strongly encourage a healthy diet and making physical activity a part of your every day life. If you have questions about how or where to start, please contact the office.
--- NOTE | 2017-12-22 18:45 | UC ---
Hand/Wrist HPI - HPI Summary HPI Summary: 51 y/o female presents to the urgent care accompany by son who translates. Pt c/ o a swollen and painful left middle finger for the past week. PT reports she has noticed a depression has developed on her nail as it grows for the past month. Symptoms worsen yesterday when she drained pus out. her middle finger is red and warm around nail bed. Pain is 8/10 at touch and is throbbing at times. She has not taking anything to alleviate symptoms. Pt can move finger w/o any difficulty. Pt denies numbness or tingling sensation over the finger, SOB, chest pain,abdominal pain, N/V/D. - History Of Current Complaint Chief Complaint: UCUpperExtremity Stated Complaint: FINGER COMPLAINT Time Seen by Provider: 12/22/17 18:12 Hx Obtained From: Patient ?: No Onset/Duration: Gradual Onset, Lasting Weeks - 1 week, Still Present, Worse Since - yesterday Severity Initially: Mild Severity Currently: Moderate Pain Intensity: 8 Pain Scale Used: 0-10 Numeric Character Of Pain: Throbbing Aggravating Factor(s): Other - touch Alleviating Factor(s): Rest, Heat Associated Signs And Symptoms: Positive: Swelling, Redness. Negative: Fever, Weakness, Numbness/Tingling Related History: Dominant Hand Right - Allergies/Home Medications Allergies/Adverse Reactions: Allergies Allergy/AdvReac Type Severity Reaction Status Date / Time cyclobenzaprine Allergy Unknown Verified 12/22/17 16:53 Reaction Details hydrocodone Allergy Unknown Verified 12/22/17 16:53 Reaction Details pseudoephedrine Allergy Unknown Verified 12/22/17 16:53 Reaction Details buprenorphine AdvReac Nausea And Verified 12/22/17 16:53 Vomiting oxycodone AdvReac Itching Verified 12/22/17 16:53 ENVIRONMENTAL Allergy WATERY EYES Uncoded 01/25/17 07:46 fruit Allergy Unknown Uncoded 02/25/17 12:57 Reaction Details Home Medications: Home Medications diPHENhydraMINE PO* [Benadryl PO 25 MG TAB*] 25 mg PO Q6HR PRN 12/22/17 [ History Confirmed 12/22/17] PMH/Surg Hx/FS Hx/Imm Hx Previously Healthy: Yes Respiratory History: Asthma - Surgical History Surgical History: Yes Surgery Procedure, Year, and Place: hernia repair [place] [facility] [place] Family History Known Family History: Positive: None - Pt denies FMHx Negative: Cardiac Disease, Hypertension, Diabetes Family History: denies cardiovascular issues in family lineage - Social History Occupation: Unemployed Lives: With Family Alcohol Use: None Substance Use Type: None Smoking Status (MU): Never Smoked Tobacco Review of Systems Constitutional: Negative Skin: Other - left middle finger swollen and red w/ pus Eyes: Negative ENT: Negative Respiratory: Negative Cardiovascular: Negative Gastrointestinal: Negative Genitourinary: Negative Motor: Negative Neurovascular: Negative Musculoskeletal: Other: - left middle finger pain Neurological: Negative Psychological: Negative Is Patient Immunocompromised?: No All Other Systems Reviewed And Are Negative: Yes Physical Exam - Summary Physical Exam Summary: Vital Signs Reviewed: Yes General: well developed, well nourished male sitting in the examining table w/o any apparent distress Eye Exam: Normal Eyes: Positive: Conjunctiva Clear - PERRLA, EOMI, fundi grossly normal ENT: Positive: Normal ENT inspection, Hearing grossly normal, Pharynx normal, TMs normal Neck: Positive: Supple, Nontender, No Lymphadenopathy Respiratory: Positive: Chest non-tender, Lungs clear, Normal breath sounds, No respiratory distress Cardiovascular: Positive: RRR, No Murmur, Pulses Normal, Brisk Capillary Refill Abdomen Description: Positive: Nontender, No Organomegaly, Soft. Negative: CVA Tenderness (R), CVA Tenderness (L) Bowel Sounds: Positive: Present Musculoskeletal: Positive: Strength Intact, ROM Intact, No Edema Neurological: Positive: Alert, Muscle Tone Normal Psychological Exam: Normal Skin: Positive:LF # 3 phalanx near DIPJ around the medial aspect of naild bed with a small erythematous pustule that is indurated and fluctuant, tender to palpation, swollen, and warm to touch about .5cm in size. FROM of phalanx, sensation is intact, capillary refill WNL, reflexes WNL Triage Information Reviewed: Yes Vital Signs: Initial Vital Signs Temp 98.8 F 12/22/17 16:47 Pulse 86 12/22/17 16:47 Resp 14 12/22/17 16:47 BP 100/66 12/22/17 16:47 Pulse Ox 100 12/22/17 16:47 Hand/Wrist Course/Dx - Course Course Of Treatment: 51 y/o female presents to the urgent care accompany by son who translates. Pt c/o a swollen and painful left middle finger for the past week. PT reports she has noticed a depression has developed on her nail as it grows for the past month. Symptoms worsen yesterday when she drained pus out. her middle finger is red and warm around nail bed. Pain is 8/10 at touch and is throbbing at times. She has not taking anything to alleviate symptoms. Pt can move finger w/o any difficulty. Pt denies numbness or tingling sensation over the finger, SOB, chest pain,abdominal pain, N/V/D.Hx obtained. Pt w/ a Paronychia of the left 3rd phalanx on examination. I&D of paronychia procedure: The procedure was explained and consent obtained. [place] protocol performed. Digital block performed at base of of left 3rd phalanx w/ 2 mL of [place] 1% with good anesthesia. Sterile drape and prep were done. The fluctuant center around nail was incised with #11 blade scalpel. A small amount of bloody material was expressed . wound cultures obtained and sent to lab top r/o MRSA. wound was irrigated with normal saline. Bacitracin topical ointment applied and wound covered with sterile dressing. The patient tolerated the procedure well. Pt Rx Keflex PO and ibuprofen PO for pain. Pt advised fever develops and pain increase despite ABX to go immediately to the ER for further management. D/C instructions explained. Pt understood and agreed with D/C instructions. Left the clinic ambulating A&OX3. - Differential Dx/Diagnosis Differential Diagnosis/HQI/PQRI: Cellulitis, Paronychia Provider Diagnoses: 1- I&D of left 3rd phalanx paronychia. 2- left 3rd phalanx pain Discharge - Sign-Out/Discharge Documenting (check all that apply): Patient Departure - D/C home All imaging exams completed and their final reports reviewed: No Studies - Discharge Plan Condition: Stable Disposition: HOME Prescriptions: Aluminum Sulf/Ca Acetate SHAYLEE* [[place] SHAYLEE*] 1 applic TOPICAL BID #1 box Bacitracin OINTMENT* 1 applic TOPICAL BID #1 tube Cephalexin CAP* [Keflex CAP*] 500 mg PO QID #28 cap Patient Education Materials: Paronychia (ED) Referrals: Jair Paredes MD [Primary Care Provider] - 3 Days Additional Instructions: 1-Please take full course of antibiotic to avoid resistance. Keep wound clean and dry with a sterile dressing. Apply bacitracin topical as directed 2- soak your finger w/ [place] pakts as directed. then dry your finger well. 3-. Take Ibuprofen PO q6-8hrs prn for pain or swelling. 4-If you develop fever severe pain after 48 hr of taking antibiotic please return to the Urgent care. 5- Wound culture sent to lab, if any abnormal result you will receive a call from us. - Billing Disposition and Condition Condition: STABLE Disposition: Home
[2017-12-22] MEDS ORDERED: Lidocaine 1%* 5 ML VIAL INJ ONE (18:53)
[2017-12-22 18:57] VITALS: BP 116/82
== END 2017-12-22 19:40 | disposition home or self-care (01) ==
LOC: UCEAST 16:26
DX: L03.012 Cellulitis of left finger (principal); Z88.5 Allergy status to narcotic agent; Z88.8 Allergy status to other drugs, medicaments and biological substances; Z91.018 Allergy to other foods
CPT/HCPCS: 87070; 87077; 87205; 99211; G0463

== ENCOUNTER 2018-01-01 09:10 | Emergency (ER) | payer OTHER ==
--- NOTE | 2018-01-01 09:24 | ED ---
Back Pain - HPI Summary HPI Summary: The patient is a 52 y/o F presenting to [facility] accompanied by with a chief complaint of a sudden exacerbation of severe bilateral low back pain starting at 0630 this morning when she woke up. The pain did not wake her up, but she was unable to get out of bed without pain. The pain moves down into her right hip and thigh, and she has numbness and tingling in both feet. The aching pain is currently rated 10/10 in severity. The pain is aggravated by movement and sitting, and alleviated by standing for a long time. At this time, she denies any recent trauma or lifting event that would have caused this pain. She denies abnormal urination, but has had constipation for two days without abd pain. This pain initially started in 2007 when she was lifting something and hurt her back, with a L1-L2 compression fracture. She has since had episodes of back pain, but it hasn't been this severe since onset. She was using aquatherapy as a source of relief for her back pain, but she has not gone because workman's compensation has prohibited her from going at this time. She does not take any other pain medications. - History of Current Complaint Chief Complaint: EDBackInjuryPain Stated Complaint: LWR BACK PAIN Time Seen by Provider: 01/01/18 09:17 Hx Obtained From: Patient Onset/Duration: Sudden Onset, Lasting Hours - starting this morning when she woke up at 0630, Still Present Onset/Duration: Started Hours Ago, Still Present Timing: Constant Back Pain Location: Is Discrete @ - bilateral lower back Pain Intensity: 10 Pain Scale Used: 0-10 Numeric Character: Aching Aggravating Symptom(s): Movement Alleviating Symptom(s): Other - standing Associated Signs And Symptoms: Positive: Numbness - in bilateral feet, Tingling - in bilateral feet, Other - POSITIVE: pain in right hip/thigh, constipation for two days; NEGATIVE: abnormal urination symptoms. Negative: Abdominal Pain Related History: Previous Back Injury Full Body (No Head): 1 - bilateral lower back pain - Allergies/Home Medications Allergies/Adverse Reactions: Allergies Allergy/AdvReac Type Severity Reaction Status Date / Time cyclobenzaprine Allergy Unknown Verified 01/01/18 09:15 Reaction Details hydrocodone Allergy Unknown Verified 01/01/18 09:15 Reaction Details pseudoephedrine Allergy Unknown Verified 01/01/18 09:15 Reaction Details buprenorphine AdvReac Nausea And Verified 01/01/18 09:15 Vomiting oxycodone AdvReac Itching Verified 01/01/18 09:15 ENVIRONMENTAL Allergy WATERY EYES Uncoded 01/01/18 09:15 fruit Allergy Unknown Uncoded 01/01/18 09:15 Reaction Details PMH/Surg Hx/FS Hx/Imm Hx Endocrine/Hematology History: Denies: Hx Diabetes Cardiovascular History: Denies: Hx Hypertension, Hx Pacemaker/ICD, Other Cardiovascular Problems/ Disorders Respiratory History: Reports: Hx Asthma - inhaler, Hx Seasonal Allergies Denies: Other Respiratory Problems/Disorders GI History: Reports: Hx Irritable Bowel Denies: Other GI Disorders History: Denies: Hx Renal Disease, Other Problems/Disorders Musculoskeletal History: Reports: Hx Back Problems - L1-L2 compression fracture Denies: Other Musculoskeletal History Sensory History: Denies: Hx Contacts or Glasses Opthamlomology History: Denies: Hx Contacts or Glasses Neurological History: Reports: Other Neuro Impairments/Disorders - PAIN CLINIC PT Psychiatric History: Denies: Hx Panic Disorder - Cancer History Hx Chemotherapy: No Hx Radiation Therapy: No - Surgical History Surgery Procedure, Year, and Place: hernia repair 2008, [facility] [place] Hx Anesthesia Reactions: No Infectious Disease History: No Infectious Disease History: Denies: Traveled Outside the [place] in Last 30 Days - Family History Known Family History: Negative: Cardiac Disease, Hypertension, Diabetes Family History: denies cardiovascular issues in family lineage - Social History Alcohol Use: None Hx Substance Use: Yes Substance Use Type: Reports: None Hx Tobacco Use: No Smoking Status (MU): Never Smoked Tobacco Review of Systems Positive: Other - constipation since tuesday. Negative: Abdominal Pain Positive: other - NEGATIVE: abnormal urination Positive: Other - bilateral low back pain that radiates to right hip and thigh Positive: Numbness - and tingling in bilateral feet All Other Systems Reviewed And Are Negative: Yes Physical Exam - Summary Physical Exam Summary: Appearance: Well appearing, no pain distress Skin: warm, dry, reflects adequate perfusion Head/face: normal Eyes: EOMI, LUZ ENT: mucous membranes moist Neck: supple, non-tender Respiratory: CTA, breath sounds present Cardiovascular: RRR, pulses symmetrical Abdomen: non-tender, soft Bowel Sounds: present Rectal Exam: normal rectal tone, no stool in vault Musculoskeletal: strength/ROM intact, low lumbar musculature pain, 2+ DB pulses , no weakness Neuro: sensory motor intact, A&Ox3, normal saddle sensation, pain with straight leg raise bilaterally but no radicular pain Triage Information Reviewed: Yes Vital Signs On Initial Exam: Initial Vitals Temp Pulse Resp BP Pulse Ox 97 F 67 16 123/71 100 01/01/18 09:15 01/01/18 09:15 10 09:15 01/01/18 09:15 01/01/18 09:15 Vital Signs Reviewed: Yes Procedures - Procedure Summary Procedure Summary: Trigger point injection: The patient was consented and placed supine. Her lumbar musculature was cleaned with alcohol. She was injected with a total of 3 cc of 1% lidocaine mixed with 5 cc of 0.5% bupivacaine with epinephrine through a 25-gauge needle into several identified trigger points throughout bilateral lumbar musculature. The medication was massage to the tissues and these areas released. She tolerated this well without complications. She experienced significant pain relief. Diagnostics - Vital Signs Vital Signs Temp Pulse Resp BP Pulse Ox 01/01/18 09:15 97 F 67 16 123/71 100 - Laboratory Lab Statement: Any lab studies that have been ordered have been reviewed, and results considered in the medical decision making process. Re-Evaluation - Re-Evaluation First Eval Re-Evaluation Time: 10:07 Change: Improved Comment: The pt's pain is now rated 8/10 in severity instead of 10/10, but she is not feeling numbness or tingling in her feet anymore. The pain persists but she is feeling a little better. Back Pain Course/Dx - Course Course Of Treatment: Patient with chronic back pain that is mild to moderate in nature. No definite except exacerbating factor today. She was treated with Toradol, Ativan and trigger point injection was significant relief. She was able to ambulate normally and was discharged in good condition. She'll follow up with chiropractor and primary care physician. - Diagnoses Differential Diagnosis/HQI/PQRI: Positive: Herniated Disc, Strain, Sprain Provider Diagnoses: Lumbar strain Discharge - Sign-Out/Discharge Documenting (check all that apply): Patient Departure - Patient will be discharged home. - Discharge Plan Condition: Improved Disposition: HOME Prescriptions: Metaxalone TAB* [Skelaxin TAB*] 800 mg PO TID #20 tab Naproxen [Naproxen 250 mg tab] 250 mg PO BID PRN #12 tablet PRN Reason: Pain Patient Education Materials: Low Back Strain (ED) Referrals: Jair Paredes MD [Medical Doctor] - Additional Instructions: Ice, range of motion, stretching exercises. Call chiropractor for appointment tomorrow. Call to schedule appointment with her pain management doctor or your primary care provider. Return if worse, numbness/weakness in her legs, difficulty with bowel or bladder, worse or other concerns. - Billing Disposition and Condition Condition: IMPROVED Disposition: Home - Attestation Statements Document Initiated by Izabela: Yes Documenting Scribe: Lulu Cisse Provider For Whom Izabela is Documenting (Include Credential): Dr. Akash Mendoza MD Scribe Attestation: Lulu Bell scribed for Dr. Akash Mendoza MD on 01/01/18 at 1455. Scribe Documentation Reviewed: Yes Provider Attestation: The documentation as recorded by the Lulu veronica accurately reflects the service I personally performed and the decisions made by me, Dr. Akash Mendoza MD
[2018-01-01] MEDS ORDERED: Ketorolac INJ* 60 MG/2 ML VIAL IM ONE (09:37)
[2018-01-01] MEDS ORDERED: LORazepam INJ* 2 MG/ML 1 ML VIAL IM ONE (09:37)
[2018-01-01 10:34] VITALS: BP 103/81
== END 2018-01-01 10:34 | disposition home or self-care (01) ==
LOC: ED 09:10
DX: S39.012A Strain of muscle, fascia and tendon of lower back, initial encounter (principal); X58.XXXA Exposure to other specified factors, initial encounter; Y92.9 Unspecified place or not applicable; J45.909 Unspecified asthma, uncomplicated; Z88.8 Allergy status to other drugs, medicaments and biological substances
CPT/HCPCS: 96372; 99282; J1885; J2060

== ENCOUNTER 2018-05-30 10:29 | Day surgery (SDC) | payer OTHER ==
[~2018-05-30 10:29] MED LIST: Acetaminophen TAB* 325 MG PO PRN; Buffered Lidocaine 1% SYRIN* 1 ML/SYRINGE INTRADERM ONE
[2018-05-30] MEDS ORDERED: Tropicamide 1% OPTH.SOL* BTL ONE (11:28)
[2018-05-30] MEDS ORDERED: Neomycin/Polymy/Dex OPHTH.OIN* 3.5 GM ONE (11:28)
[2018-05-30] MEDS ORDERED: Cyclopentolate 1% OPTH.SOL* 2 ML BTL ONE (11:28)
[2018-05-30] MEDS ORDERED: Ketorolac 0.5% OPHTH (NF) 0.5 % 5 ML BTL ONE (11:28)
[2018-05-30] MEDS ORDERED: Tetracaine 0.5% OPTH.SOL 4 ML* 1 DROP BTL ONE (11:28)
[2018-05-30] MEDS ORDERED: Lidocaine 1%* 5 ML VIAL ONE (11:28)
[2018-05-30] MEDS ORDERED: Midazolam* 1 MG/ML 2 ML VIAL (2 MG) ONE ×2 (12:07→12:33)
[2018-05-30] MEDS ORDERED: fentaNYL* 50 MCG/ML 2 ML VIAL (100 MCG VIAL) ONE ×2 (12:07→12:38)
[2018-05-30 13:02] VITALS: BP 107/76
--- NOTE | 2018-05-30 13:35 | OP ---
DATE OF OPERATION/DATE OF DICTATION: 05/30/2018 - [facility] DATE OF : 1965. SURGEON: Dr. Gera De Leon. HAND SPRING FORMER: None. ANESTHESIA: Topical with intravenous sedation. PRE-OP DIAGNOSIS: Cataract, right eye. POST-OP DIAGNOSIS: Cataract, right eye. OPERATIVE PROCEDURE: Phacoemulsification and cataract extraction with posterior chamber intraocular lens implant, right eye. COMPLICATIONS: None. BLOOD LOSS: None. DESCRIPTION OF PROCEDURE: The patient was brought to the operating room and received a small amount of intravenous sedation. A drop of Tetracaine was placed in her right eye. She was prepped and draped in the usual sterile fashion for ophthalmic surgery and attention was directed to the right eye where a speculum was placed. A paracentesis was created at the 11 o'clock position and 0.1 cc of 1 percent preservative-free Lidocaine was injected into the anterior chamber followed by DisCoVisc. The eye was digitally stabilized while a 2.75 mm keratome was used to create a triplanar clear corneal incision at the 9 o'clock position. A continuous curvilinear capsulorrhexis was created with a cystotome and Utrata forceps. BSS on a cannula was used to hydrodissect the lens from the capsule. Phacoemulsification was performed in a divide-and- conquer technique to create four fragments which were removed. Residual cortical material was removed with irrigation and aspiration. DisCoVisc was used to inflate the capsular bag and an AUOOTO 24.0 diopter lens was folded and inserted into the capsular bag. DisCoVisc was removed using irrigation and aspiration. BSS on a cannula was used to hydrate the corneal stroma and seal the wound. At the end of the case the pupil was round and the lens was centered. The eye was of normal pressure and the wound was water tight. The speculum was removed and topical Maxitrol ointment was placed on the surface of the eye. The eye was closed, patched and shielded and the patient was sent to the recovery room in stable condition with post operative instructions and follow-up appointment given. [id number] #: [id number] MTDD
== END 2018-05-30 13:03 | disposition home or self-care (01) ==
LOC: OREAST 10:29
PROVIDERS: ATTEND Ophthalmology
DX: H25.11 Age-related nuclear cataract, right eye (principal); J45.909 Unspecified asthma, uncomplicated; E78.5 Hyperlipidemia, unspecified; R42 Dizziness and giddiness
CPT/HCPCS: A9270-GY; J2250; J3010; V2632

== ENCOUNTER 2018-06-06 08:06 | Day surgery (SDC) | payer OTHER ==
[2018-06-06] MEDS ORDERED: Midazolam* 1 MG/ML 2 ML VIAL (2 MG) ONE (09:59)
[2018-06-06] MEDS ORDERED: fentaNYL* 50 MCG/ML 2 ML VIAL (100 MCG VIAL) ONE (09:59)
[2018-06-06 11:16] VITALS: BP 111/77
--- NOTE | 2018-06-06 11:18 | OP ---
DATE OF OPERATION: 06/06/18 [facility] DATE OF : 63 SURGEON: Dr. Gera De Leon. REFRIGERATION SYSTEM INSTALLER: None. ANESTHESIA: Topical with intravenous sedation. PRE-OP DIAGNOSIS: Cataract, left eye. POST-OP DIAGNOSIS: Cataract, left eye. OPERATIVE PROCEDURE: Phacoemulsification and cataract extraction with posterior chamber intraocular lens implant, left eye. COMPLICATIONS: None. BLOOD LOSS: None. DESCRIPTION OF PROCEDURE: The patient was brought to the operating room and received a small amount of intravenous sedation. A drop of Tetracaine was placed in her left eye. She was prepped and draped in the usual sterile fashion for ophthalmic surgery and attention was directed to the left eye where a speculum was placed. A paracentesis was created at the 5 o'clock position and 0.1 cc of 1 percent preservative-free Lidocaine was injected into the anterior chamber followed by DisCoVisc. The eye was digitally stabilized while a 2.75 mm keratome was used to create a triplanar clear corneal incision at the 3 o'clock position. A continuous curvilinear capsulorrhexis was created with a cystotome and Utrata forceps. BSS on a cannula was used to hydrodissect the lens from the capsule. Phacoemulsification was performed in a divide-and- conquer technique to create four fragments which were removed. Residual cortical material was removed with irrigation and aspiration. DisCoVisc was used to inflate the capsular bag and an AUOOTO 24.0 diopter lens was folded and inserted into the capsular bag. DisCoVisc was removed using irrigation and aspiration. BSS on a cannula was used to hydrate the corneal stroma and seal the wound. At the end of the case the pupil was round and the lens was centered. The eye was of normal pressure and the wound was water tight. The speculum was removed and topical Maxitrol ointment was placed on the surface of the eye. The eye was closed, patched and shielded and the patient was sent to the recovery room in stable condition with post operative instructions and follow-up appointment given. [id number]/CPS #: [id number] DONNA
[2018-06-06] MEDS ORDERED: Lidocaine 1%* 5 ML VIAL ONE (13:24)
[2018-06-06] MEDS ORDERED: Phenylephrine 2.5% OPTH.SOL* 2 ML BTL ONE (13:24)
[2018-06-06] MEDS ORDERED: Cyclopentolate 1% OPTH.SOL* 2 ML BTL ONE (13:24)
[2018-06-06] MEDS ORDERED: Neomycin/Polymy/Dex OPHTH.OIN* 3.5 GM ONE (13:24)
[2018-06-06] MEDS ORDERED: Tetracaine 0.5% OPTH.SOL 4 ML* 1 DROP BTL ONE (13:25)
[2018-06-06] MEDS ORDERED: Ketorolac 0.5% OPHTH (NF) 0.5 % 5 ML BTL ONE (13:25)
[2018-06-06] MEDS ORDERED: Tropicamide 1% OPTH.SOL* BTL ONE (13:25)
== END 2018-06-06 11:02 | disposition home or self-care (01) ==
LOC: OREAST 08:06
PROVIDERS: ATTEND Ophthalmology
DX: H25.12 Age-related nuclear cataract, left eye (principal); A15.8 Other respiratory tuberculosis; J45.909 Unspecified asthma, uncomplicated; E78.5 Hyperlipidemia, unspecified; R42 Dizziness and giddiness
CPT/HCPCS: A9270-GY; J2250; J3010; V2632

== ENCOUNTER 2018-08-24 11:59 | Emergency (ER) | payer SELFPAY ==
--- OUTSIDE RECORDS SUMMARY | 2018-08-24 12:05 | XMS REPORT | Continuity of Care Document ---
:1965 External Reference #:[id number] Author Name Kathleen Zapien M.D. 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 Onset: 01/30/2018 Mild intermittent asthma Kathleen Zapien M.D. Onset: 01/30/2018 Rheumatoid arthritis with organ / system Kathleen Zapien M.D. Onset: 01/30/2018 involvement Inactive tuberculosis Kathleen Zapien M.D. Onset: 01/30/2018 Dizziness and giddiness Kathleen Zapien M.D. Onset: 02/27/2018 Eruption Kathleen Zapien M.D. Onset: 04/05/2018 High enzyme level in serum Kathleen Zapien M.D. Onset: 04/05/2018 Chest pain Kathleen Zapien M.D. Onset: 05/03/2018 Family History Date Family Member(s) Observation Comments Father " from old age" Mother " from old age" Social History Type Date Description Comments Sex Unknown Marital Status Lives With Family and 2 sons. 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 Patient was exposed to 2nd hand smoke for many years. Smoking Status Reviewed: 08/09/18 Never Smoked Cigarettes ETOH Use Denies alcohol use Tobacco Use Start: Unknown Patient denies history of smoking Recreational Drug Use Denies Drug Use Exercise Type/Frequency Exercises regularly Allergies, Adverse Reactions, Alerts Active Allergies Reaction Severity Comments Date Hydrocodone 10/19/2017 Medications Active Medications SIG Qnty Indications Ordering Provider Date Isoniazid take one tab by 30tabs R76.12 Kathleen Zapien M.D. 01/30/2018 300mg Tablets mouth daily x 30 days Pyridoxine HCL take one tab by 30tabs R76.12 Kathleen Zapien M.D. 01/30/2018 50mg mouth daily x 30 Tablets days Flonase Allergy to sprays to each 29.7ml J30.2 Kathleen Zapien M.D. 2017 Relief nostril once 50mcg/Act daily . Suspension Vitamin B6 Unknown History Medications Benadryl Extra Apply to affected 1Tube R21 Kathleen Zapien, 05/03/2018 - Strength areas on the back M.D. 08/09/2018 2-0.1% bid as directed Cream for 1 week. Mometasone Furoate apply on affected 30gm R21 Kathleen Zapien, 04/05/2018 - sites (back and M.D. 08/09/2018 0.1% Cream forearm) once daily for 5 days as directed prn. Isoniazid take 1 tablet 90tabs R76.12 Kemar Lorenzo MD 10/19/2017 - 300mg daily (total 11/21/2017 Tablets duration of treatment is 9 months). Pyridoxine HCL take 1 tablet 90tabs R76.12 Kemar Lorenzo MD 10/19/2017 - 50mg daily. 11/21/2017 Tablets Ventolin HFA take 2 puffs every Unknown - 6 hours as needed 01/30/2018 108(90Base) mcg/Act for shortness of Aerosol breath. Benadryl Allergy 1 tab by mouth Unknown - twice a day prn 01/30/2018 25mg Tablets Vital Signs Date Vital Result Comment 08/09/2018 3:01pm BP Systolic Sitting Right Arm 105 mmHg BP Diastolic Sitting Right Arm 73 mmHg Body Temperature 97.2 F Heart Rate 88 /min Height 60 inches 5'0" Weight 170.00 lb BMI (Body Mass Index) 33.2 kg/m2 BSA (Body Surface Area) 1.74 m2 [place] body weight in kilograms 45 kg 07/05/2018 3:01pm BP Systolic Sitting Right Arm 94 mmHg BP Diastolic Sitting Right Arm 65 mmHg Body Temperature 97.2 F Heart Rate 85 /min Height 60 inches 5'0" Weight 166.00 lb BMI (Body Mass Index) 32.4 kg/m2 BSA (Body Surface Area) 1.72 m2 [place] body weight in kilograms 45 kg 05/31/2018 2:43pm BP Systolic Sitting Left Arm 104 mmHg BP Diastolic Sitting Left Arm 70 mmHg Body Temperature 96.6 F Heart Rate 83 /min Height 60 inches 5'0" Weight 167.00 lb BMI (Body Mass Index) 32.6 kg/m2 BSA (Body Surface Area) 1.73 m2 [place] body weight in kilograms 45 kg 05/24/2018 2:56pm BP Systolic Sitting Left Arm 100 mmHg BP Diastolic Sitting Left Arm 70 mmHg Heart Rate 70 /min Respiratory Rate 16 /min Height 60 inches 5'0" Weight 164.00 lb BMI (Body Mass Index) 32.0 kg/m2 BSA (Body Surface Area) 1.72 m2 [place] body weight in kilograms 45 kg O2 % BldC Oximetry 99 % 05/03/2018 2:21pm BP Systolic Sitting Right Arm 103 mmHg BP Diastolic Sitting Right Arm 72 mmHg Body Temperature 96.9 F Heart Rate 84 /min Height 60 inches 5'0" Weight 165.00 lb BMI (Body Mass Index) 32.2 kg/m2 BSA (Body Surface Area) 1.72 m2 [place] body weight in kilograms 45 kg 04/19/2018 2:32pm BP Systolic Sitting Right Arm 110 mmHg BP Diastolic Sitting Right Arm 74 mmHg Heart Rate 81 /min Respiratory Rate 18 /min Height 60 inches 5'0" Weight 164.00 lb BMI (Body Mass Index) 32.0 kg/m2 BSA (Body Surface Area) 1.72 m2 [place] body weight in kilograms 45 kg O2 % BldC Oximetry 97 % Ora 04/05/2018 2:06pm BP Systolic Sitting Right Arm 128 mmHg BP Diastolic Sitting Right Arm 80 mmHg Body Temperature 96.6 F Heart Rate 88 /min Height 60 inches 5'0" Weight 165.00 lb BMI (Body Mass Index) 32.2 kg/m2 BSA (Body Surface Area) 1.72 m2 [place] body weight in kilograms 45 kg 03/06/2018 10:01am BP Systolic Sitting Left Arm 115 mmHg BP Diastolic Sitting Left Arm 60 mmHg Heart Rate 86 /min Respiratory Rate 16 /min Height 60 inches 5'0" Weight 161.00 lb BMI (Body Mass Index) 31.4 kg/m2 BSA (Body Surface Area) 1.70 m2 [place] body weight in kilograms 45 kg O2 % BldC Oximetry 95 % 02/27/2018 3:42pm BP Systolic Sitting Left Arm 102 mmHg BP Diastolic Sitting Left Arm 68 mmHg Body Temperature 97.8 F Heart Rate 91 /min Height 60 inches 5'0" Weight 162.00 lb BMI (Body Mass Index) 31.6 kg/m2 BSA (Body Surface Area) 1.71 m2 [place] body weight in kilograms 45 kg 01/30/2018 3:32pm BP Systolic Sitting Left Arm 104 mmHg BP Diastolic Sitting Left Arm 71 mmHg Body Temperature 97.5 F Heart Rate 89 /min Height 60 inches 5'0" Weight 163.00 lb BMI (Body Mass Index) 31.8 kg/m2 BSA (Body Surface Area) 1.71 m2 [place] body weight in kilograms 45 kg 01/18/2018 2:03pm BP Systolic Sitting Left Arm 122 mmHg BP Diastolic Sitting Left Arm 80 mmHg Heart Rate 91 /min Respiratory Rate 18 /min Height 60 inches 5'0" Weight 164.00 lb BMI (Body Mass Index) 32.0 kg/m2 BSA (Body Surface Area) 1.72 m2 [place] body weight in kilograms 45 kg O2 % BldC Oximetry 97 % Room air 01/16/2018 1:53pm BP Systolic Sitting Left Arm 119 mmHg BP Diastolic Sitting Left Arm 86 mmHg Body Temperature 97.4 F Heart Rate 89 /min Height 60 inches 5'0" Weight 163.00 lb BMI (Body Mass Index) 31.8 kg/m2 BSA (Body Surface Area) 1.71 m2 [place] body weight in kilograms 45 kg 11/21/2017 2:00pm BP Systolic Sitting Left Arm 95 mmHg BP Diastolic Sitting Left Arm 60 mmHg Heart Rate 100 /min Respiratory Rate 16 /min Height 60 inches 5'0" Weight 167.00 lb BMI (Body Mass Index) 32.6 kg/m2 BSA (Body Surface Area) 1.73 m2 [place] body weight in kilograms 45 kg O2 % BldC Oximetry 97 % 10/19/2017 1:12pm BP Systolic Sitting Left Arm 110 mmHg BP Diastolic Sitting Left Arm 78 mmHg Heart Rate 67 /min Respiratory Rate 18 /min Height 60 inches 5'0" Weight 164.00 lb BMI (Body Mass Index) 32.0 kg/m2 BSA (Body Surface Area) 1.72 m2 [place] body weight in kilograms 45 kg O2 % BldC Oximetry 99 % Results Test Date Facility Test Result H/L Range Note Comprehensive Metabolic 08/09/2018 [facility] Glucose 105 mg/dL N 74-106 1 Panel [address] [place] [address] [phone] BUN 13 mg/dL N 7-18 Creatinine 0.8 mg/dL N 0.6-1.3 Glom Filtration Rate, Estimate >60 mL/min >60 If >60 mL/min >60 2 BUN/Creat 16.2 ratio Sodium 141 mmol/L N 136-145 Potassium 3.9 mmol/L N 3.5-5.1 Chloride 108 mmol/L High 98-107 Carbon Dioxide 27 mmol/L N 21-32 Anion Gap 6 mEq/L Low 8-16 Calcium 8.9 mg/dL N 8.5-10.1 Total Protein 7.5 g/dL N 6.4-8.2 Albumin 3.9 g/dL N 3.4-5.0 Globulin 3.6 g/dL N 1.9-4.3 Alb/Glob 1.1 ratio Bilirubin,Total 0.5 mg/dL N 0.2-1.0 Sgot/Ast 53 U/L High 15-37 SGPT/Alt 56 U/L N 12-78 Alkaline Phosphatase 73 U/L N 45-117 CBC W/Automated Diff 08/09/2018 [facility] White Blood 5.7 K/uL N 3.1-10.[address] [place] [address] [phone] Red Blood Count 4.70 M/uL N 3.90-5.40 Hemoglobin 12.6 gm/dL N 11.6-15.8 Hematocrit 39.0 % N 36.0-46.1 Mean Cell Volume 83.0 fl N 80.9-99.0 Mean Corpuscular HGB 26.8 pg N 25.9-32.7 Mean Corpuscular HGB Conc 32.3 g/dL N 30.8-34.3 Platelet Count 201 K/uL N 155-360 Red Cell Distri Width SD 41.7 fl N 36-47 Red Cell Distri Width %CV 13.9 % N 11.7-14.4 Mean Platelet Volume 11.0 fl N 8.9-12.4 Neut% 63.3 % N 40.4-72.8 Lymph % 26.8 % N 20.0-42.0 [place] % 6.6 % N 4.3-13.2 Eo% 2.6 % N 0.0-6.6 Bas% 0.5 % N 0.0-1.1 Immature Grans 0.2 % N 0.0-5.0 NRBC % 0.0 /100WBC < 10/ 100 WBC Neut# 3.63 K/uL N 1.8-7.0 Lymph # 1.54 K/uL N 1.0-4.0 [place] # 0.38 K/uL N 0.3-0.9 Eos # 0.15 K/uL N 0.0-0.5 Baso # 0.03 K/uL N 0.0-0.1 Immature Grans Absolute 0.01 K/uL NRBC # 0.00 K/uL Laboratory test 08/09/2018 [facility] C-Reactive < 3.0 <3.[address] Protein,Quant mg/[place] [address] [phone] CBC W/Automated 07/05/2018 [facility] White Blood Count 5.5 K/uL N 3.1-10.[address] [place] [address] [phone] Red Blood Count 4.88 M/uL N 3.90-5.40 Hemoglobin 12.9 gm/dL N 11.6-15.8 Hematocrit 40.4 % N 36.0-46.1 Mean Cell Volume 82.8 fl N 80.9-99.0 Mean Corpuscular HGB 26.4 pg N 25.9-32.7 Mean Corpuscular HGB Conc 31.9 g/dL N 30.8-34.3 Platelet Count 219 K/uL N 155-360 Red Cell Distri Width SD 41.5 fl N 36-47 Red Cell Distri Width %CV 14.0 % N 11.7-14.4 Mean Platelet Volume 11.1 fl N 8.9-12.4 Neut% 63.3 % N 40.4-72.8 Lymph % 25.1 % N 20.0-42.0 [place] % 7.5 % N 4.3-13.2 Eo% 3.3 % N 0.0-6.6 Bas% 0.4 % N 0.0-1.1 Immature Grans 0.4 % N 0.0-5.0 NRBC % 0.0 /100WBC < 10/ 100 WBC Neut# 3.46 K/uL N 1.8-7.0 Lymph # 1.37 K/uL N 1.0-4.0 [place] # 0.41 K/uL N 0.3-0.9 Eos # 0.18 K/uL N 0.0-0.5 Baso # 0.02 K/uL N 0.0-0.1 Immature Grans Absolute 0.02 K/uL NRBC # 0.00 K/uL Comprehensive Metabolic 07/05/2018 [facility] Glucose 86 mg/dL N 74-106 Panel [address] [place] [address] [phone] BUN 15 mg/dL N 7-18 Creatinine 0.8 mg/dL N 0.6-1.3 Glom Filtration Rate, Estimate >60 mL/min >60 If >60 mL/min >60 3 BUN/Creat 18.7 ratio Sodium 144 mmol/L N 136-145 Potassium 4.2 mmol/L N 3.5-5.1 Chloride 107 mmol/L N 98-107 Carbon Dioxide 33 mmol/L High 21-32 Anion Gap 4 mEq/L Low 8-16 Calcium 9.3 mg/dL N 8.5-10.1 Total Protein 7.9 g/dL N 6.4-8.2 Albumin 4.0 g/dL N 3.4-5.0 Globulin 3.9 g/dL N 1.9-4.3 Alb/Glob 1.0 ratio Bilirubin,Total 0.5 mg/dL N 0.2-1.0 Sgot/Ast 41 U/L High 15-37 SGPT/Alt 41 U/L N 12-78 Alkaline Phosphatase 77 U/L N 45-117 CBC W/Automated Diff 05/31/2018 [facility] White Blood 5.6 K/uL N 3.1-10.[address] Count [place], [place] [id number] [phone] Red Blood Count 5.09 M/uL N 3.90-5.40 Hemoglobin 13.3 gm/dL N 11.6-15.8 Hematocrit 41.4 % N 36.0-46.1 Mean Cell Volume 81.3 fl N 80.9-99.0 Mean Corpuscular HGB 26.1 pg N 25.9-32.7 Mean Corpuscular HGB Conc 32.1 g/dL N 30.8-34.3 Platelet Count 230 K/uL N 155-360 Red Cell Distri Width SD 42.0 fl N 36-47 Red Cell Distri Width %CV 14.4 % N 11.7-14.4 Mean Platelet Volume 10.5 fL N 8.9-12.4 Neut% 61.0 % N 40.4-72.8 Lymph % 27.2 % N 20.0-42.0 [place] % 7.4 % N 4.3-13.2 Eo% 4.0 % N 0.0-6.6 Bas% 0.4 % N 0.0-1.1 Neut# 3.40 K/uL N 1.8-7.0 Lymph # 1.51 K/uL N 1.0-4.0 [place] # 0.41 K/uL N 0.3-0.9 Eos # 0.22 K/uL N 0.0-0.5 Baso # 0.02 K/uL N 0.0-0.1 Comprehensive Metabolic 05/31/2018 [facility] Glucose 84 mg/dL N 74-106 Panel [address] [place] [address] [phone] BUN 9 mg/dL N 7-18 Creatinine 0.8 mg/dL N 0.6-1.3 Glom Filtration Rate, Estimate >60 mL/min >60 If >60 mL/min >60 4 BUN/Creat 11.2 ratio Sodium 142 mmol/L N 136-145 Potassium 4.2 mmol/L N 3.5-5.1 Chloride 106 mmol/L N 98-107 Carbon Dioxide 31 mmol/L N 21-32 Anion Gap 5 mEq/L Low 8-16 Calcium 8.6 mg/dL N 8.5-10.1 Total Protein 7.3 g/dL N 6.4-8.2 Albumin 3.5 g/dL N 3.4-5.0 Globulin 3.8 g/dL N 1.9-4.3 Alb/Glob 0.9 ratio Bilirubin,Total 0.4 mg/dL N 0.2-1.0 Sgot/Ast 27 U/L N 15-37 SGPT/Alt 33 U/L N 12-78 Alkaline Phosphatase 74 U/L N 45-117 CBC W/Automated Diff 05/03/2018 [facility] White Blood 5.6 K/uL N 3.1-10.[address] Count [place], [place] [id number] [phone] Red Blood Count 4.92 M/uL N 3.90-5.40 Hemoglobin 12.9 gm/dL N 11.6-15.8 Hematocrit 39.8 % N 36.0-46.1 Mean Cell Volume 80.9 fl N 80.9-99.0 Mean Corpuscular HGB 26.2 pg N 25.9-32.7 Mean Corpuscular HGB Conc 32.4 g/dL N 30.8-34.3 Platelet Count 211 K/uL N 155-360 Red Cell Distri Width SD 41.5 fl N 36-47 Red Cell Distri Width %CV 14.3 % N 11.7-14.4 Mean Platelet Volume 10.9 fL N 8.9-12.4 Neut% 66.6 % N 40.4-72.8 Lymph % 23.6 % N 20.0-42.0 [place] % 6.5 % N 4.3-13.2 Eo% 2.9 % N 0.0-6.6 Bas% 0.4 % N 0.0-1.1 Neut# 3.71 K/uL N 1.8-7.0 Lymph # 1.31 K/uL N 1.0-4.0 [place] # 0.36 K/uL N 0.3-0.9 Eos # 0.16 K/uL N 0.0-0.5 Baso # 0.02 K/uL N 0.0-0.1 Comprehensive Metabolic 05/03/2018 [facility] Glucose 82 mg/dL N 74-106 Panel [address] [place] [address] [phone] BUN 12 mg/dL N 7-18 Creatinine 0.8 mg/dL N 0.6-1.3 Glom Filtration Rate, Estimate >60 mL/min >60 If >60 mL/min >60 5 BUN/Creat 15.0 ratio Sodium 142 mmol/L N 136-145 Potassium 4.2 mmol/L N 3.5-5.1 Chloride 107 mmol/L N 98-107 Carbon Dioxide 31 mmol/L N 21-32 Anion Gap 4 mEq/L Low 8-16 Calcium 8.7 mg/dL N 8.5-10.1 Total Protein 7.5 g/dL N 6.4-8.2 Albumin 3.7 g/dL N 3.4-5.0 Globulin 3.8 g/dL N 1.9-4.3 Alb/Glob 1.0 ratio Bilirubin,Total 0.4 mg/dL N 0.2-1.0 Sgot/Ast 41 U/L High 15-37 SGPT/Alt 45 U/L N 12-78 Alkaline Phosphatase 77 U/L N 45-117 Laboratory test 04/19/2018 [facility] Urine Eosinophil 0 % N 0-1 6 finding [address] [place] [address] [phone] Liver Function 04/19/2018 [facility] Total Protein 7.5 g/dL N 6.4-8.2 Tests [address] [place] [address] [phone] Albumin 3.6 g/dL N 3.4-5.0 Globulin 3.9 g/dL N 1.9-4.3 Alb/Glob 0.9 ratio Bilirubin,Total 0.5 mg/dL N 0.2-1.0 Bilirubin,Direct 0.1 mg/dL N 0.0-0.2 Bilirubin,Indirect 0.4 mg/dL N 0.0-0.9 Sgot/Ast 47 U/L High 15-37 SGPT/Alt 54 U/L N 12-78 Alkaline Phosphatase 78 U/L N 45-117 CBC W/Automated Diff 03/30/2018 [facility] White Blood 4.8 K/uL N 3.1-10.[address] [place] [address] [phone] Red Blood Count 5.01 M/uL N 3.90-5.40 Hemoglobin 13.1 gm/dL N 11.6-15.8 Hematocrit 41.0 % N 36.0-46.1 Mean Cell Volume 81.8 fl N 80.9-99.0 Mean Corpuscular HGB 26.1 pg N 25.9-32.7 Mean Corpuscular HGB Conc 32.0 g/dL N 30.8-34.3 Platelet Count 232 K/uL N 155-360 Red Cell Distri Width SD 41.5 fl N 36-47 Red Cell Distri Width %CV 14.3 % N 11.7-14.4 Mean Platelet Volume 11.2 fL N 8.9-12.4 Neut% 57.5 % N 40.4-72.8 Lymph % 31.2 % N 20.0-42.0 [place] % 6.5 % N 4.3-13.2 Eo% 4.4 % N 0.0-6.6 Bas% 0.4 % N 0.0-1.1 Neut# 2.75 K/uL N 1.8-7.0 Lymph # 1.49 K/uL N 1.0-4.0 [place] # 0.31 K/uL N 0.3-0.9 Eos # 0.21 K/uL N 0.0-0.5 Baso # 0.02 K/uL N 0.0-0.1 Comprehensive Metabolic 03/30/2018 [facility] Glucose 105 mg/dL N 74-[address] [place] [address] [phone] BUN 11 mg/dL N 7-18 Creatinine 0.8 mg/dL N 0.6-1.3 Glom Filtration Rate, Estimate >60 mL/min >60 If >60 mL/min >60 8 BUN/Creat 13.7 ratio Sodium 143 mmol/L N 136-145 Potassium 3.8 mmol/L N 3.5-5.1 Chloride 108 mmol/L High 98-107 Carbon Dioxide 30 mmol/L N 21-32 Anion Gap 5 mEq/L Low 8-16 Calcium 8.9 mg/dL N 8.5-10.1 Total Protein 7.9 g/dL N 6.4-8.2 Albumin 3.8 g/dL N 3.4-5.0 Globulin 4.1 g/dL N 1.9-4.3 Alb/Glob 0.9 ratio Bilirubin,Total 0.6 mg/dL N 0.2-1.0 Sgot/Ast 53 U/L High 15-37 SGPT/Alt 53 U/L N 12-78 Alkaline Phosphatase 81 U/L N 45-117 CBC W/Automated Diff 02/17/2018 [facility] White Blood 4.8 K/uL N 3.1-10.[address] Count [place], [place] [id number] [phone] Red Blood Count 4.64 M/uL N 3.90-5.40 Hemoglobin 12.3 gm/dL N 11.6-15.8 Hematocrit 38.4 % N 36.0-46.1 Mean Cell Volume 82.8 fl N 80.9-99.0 Mean Corpuscular HGB 26.5 pg N 25.9-32.7 Mean Corpuscular HGB Conc 32.0 g/dL N 30.8-34.3 Platelet Count 198 K/uL N 155-360 Red Cell Distri Width SD 40.4 fl N 3-47 Red Cell Distri Width %CV 13.8 % N 11.7-14.4 Mean Platelet Volume 11.4 fL N 8.9-12.4 Neut% 61.7 % N 40.4-72.8 Lymph % 28.5 % N 20.0-42.0 [place] % 8.8 % N 4.3-13.2 Eo% 0.8 % N 0.0-6.6 Bas% 0.2 % N 0.0-1.1 Neut# 2.96 K/uL N 1.8-7.0 Lymph # 1.37 K/uL N 1.0-4.0 [place] # 0.42 K/uL N 0.3-0.9 Eos # 0.04 K/uL N 0.0-0.5 Baso # 0.01 K/uL N 0.0-0.1 Comprehensive Metabolic 02/17/2018 [facility] Glucose 86 mg/dL N 74-106 Panel [address] [place], [place] [id number] [phone] BUN 9 mg/dL N 7-18 Creatinine 0.9 mg/dL N 0.6-1.3 Glom Filtration Rate, Estimate >60 mL/min >60 If >60 mL/min >60 9 BUN/Creat 10.0 ratio Sodium 143 mmol/L N 136-145 Potassium 4.2 mmol/L N 3.5-5.1 Chloride 109 mmol/L High 98-107 Carbon Dioxide 31 mmol/L N 21-32 Anion Gap 3 mEq/L Low 8-16 Calcium 8.5 mg/dL N 8.5-10.1 Total Protein 7.4 g/dL N 6.4-8.2 Albumin 3.4 g/dL N 3.4-5.0 Globulin 4.0 g/dL N 1.9-4.3 Alb/Glob 0.9 ratio Bilirubin,Total 0.3 mg/dL N 0.2-1.0 Sgot/Ast 22 U/L N 15-37 SGPT/Alt 23 U/L N 12-78 Alkaline Phosphatase 83 U/L N 45-117 Comprehensive Metabolic 01/16/2018 [facility] Glucose 82 mg/dL N 74-106 Panel [address] [place], [place] [id number] [phone] BUN 11 mg/dL N 7-18 Creatinine 0.8 mg/dL N 0.6-1.3 Glom Filtration Rate, Estimate >60 mL/min >60 If >60 mL/min >60 10 BUN/Creat 13.7 ratio Sodium 143 mmol/L N 136-145 Potassium 3.4 mmol/L Low 3.5-5.1 Chloride 107 mmol/L N 98-107 Carbon Dioxide 30 mmol/L N 21-32 Anion Gap 6 mEq/L Low 8-16 Calcium 8.8 mg/dL N 8.5-10.1 Total Protein 8.0 g/dL N 6.4-8.2 Albumin 4.0 g/dL N 3.4-5.0 Globulin 4.0 g/dL N 1.9-4.3 Alb/Glob 1.0 ratio Bilirubin,Total 0.6 mg/dL N 0.2-1.0 Sgot/Ast 23 U/L N 15-37 SGPT/Alt 24 U/L N 12-78 Alkaline Phosphatase 93 U/L N 45-117 Laboratory test 01/16/2018 [facility] C-Reactive 3.9 mg/L High <3.[address] Protein,Quant [place], [place] [id number] [phone] Quantiferon 01/16/2018 [facility] QuantiFERON (SEE 11 Client [address]ub[address] Criteria NOTE) [place] [address] [phone] QuantiFERON TB Ag Value (SEE NOTE) IU/mL 12 QuantiFERON Nil Value 6.64 IU/mL . QuantiFERON Mitogen Value > 10.00 IU/mL . QuantiFERON TB Gold Interpret Positive Abnormal Negative 13 Hepatitis 01/16/2018 [facility] Hepatitis A Negative Negative Evaluation [address] [place] [address] [phone] HBsAg Screen [Ref Lab] Negative Negative Hepatitis B Core IgM Negative Negative HCV Signal/Cutoff ratio < 0.1 s/corat 0.0-0.9 14 Laboratory 01/16/2018 [facility] Hepatitis A POSITIVE Abnormal Negative 15 test finding [address] AB, [place] [address] [phone] Hepatitis B Surface Antibody Reactive . 16 HIV Screen 01/16/2018 [facility] HIV Screen 4th Non Reactive Non Reactive [address] Generation wRfx Reflex [place], [place] [id number] [phone] CBC 01/16/2018 [facility] White Blood 5.6 K/uL N 3.1-10.7 W/Automated [address] [place] [address] [phone] Red Blood Count 4.82 M/uL N 3.90-5.40 Hemoglobin 12.8 gm/dL N 11.6-15.8 Hematocrit 39.5 % N 36.0-46.1 Mean Cell Volume 82.0 fl N 80.9-99.0 Mean Corpuscular HGB 26.6 pg N 25.9-32.7 Mean Corpuscular HGB Conc 32.4 g/dL N 30.8-34.3 Platelet Count 220 K/uL N 155-360 Red Cell Distri Width SD 39.8 fl N 3-47 Red Cell Distri Width %CV 13.7 % N 11.7-14.4 Mean Platelet Volume 12.0 fL N 8.9-12.4 Neut% 57.5 % N 40.4-72.8 Lymph % 26.4 % N 20.0-42.0 [place] % 7.2 % N 4.3-13.2 Eo% 8.5 % High 0.0-6.6 Bas% 0.4 % N 0.0-1.1 Neut# 3.20 K/uL N 1.8-7.0 Lymph # 1.47 K/uL N 1.0-4.0 [place] # 0.40 K/uL N 0.3-0.9 Eos # 0.47 K/uL N 0.0-0.5 Baso # 0.02 K/uL N 0.0-0.1 Liver Function Tests 11/21/2017 [facility] Total Protein 7.8 g/dL N 6.4-8.2 [address] [place] [address] [phone] Albumin 3.8 g/dL N 3.4-5.0 Globulin 4.0 g/dL N 1.9-4.3 Alb/Glob 1.0 ratio Bilirubin,Total 0.5 mg/dL N 0.2-1.0 Bilirubin,Direct 0.1 mg/dL N 0.0-0.2 Bilirubin,Indirect 0.4 mg/dL N 0.0-0.9 Sgot/Ast 25 U/L N 15-37 SGPT/Alt 28 U/L N 12-78 Alkaline Phosphatase 86 U/L N 45-117 1 R76.12 2 Note: Persistent reduction for 3 months or more in an eGFR <60 mL/min/1.73 m2 defines CKD. Patients with eGFR values >/=60 mL/min/1.73 m2 may also have CKD if evidence of persistent proteinuria is present. The original MDRD equation for estimated GFR is not valid for patients less than 18 years of age. Additional information may be found at [email or web address]. 3 Note: Persistent reduction for 3 months or more in an eGFR <60 mL/min/1.73 m2 defines CKD. Patients with eGFR values >/=60 mL/min/1.73 m2 may also have CKD if evidence of persistent proteinuria is present. The original MDRD equation for estimated GFR is not valid for patients less than 18 years of age. Additional information may be found at [email or web address]. 4 Note: Persistent reduction for 3 months or more in an eGFR <60 mL/min/1.73 m2 defines CKD. Patients with eGFR values >/=60 mL/min/1.73 m2 may also have CKD if evidence of persistent proteinuria is present. The original MDRD equation for estimated GFR is not valid for patients less than 18 years of age. Additional information may be found at [email or web address]. 5 Note: Persistent reduction for 3 months or more in an eGFR <60 mL/min/1.73 m2 defines CKD. Patients with eGFR values >/=60 mL/min/1.73 m2 may also have CKD if evidence of persistent proteinuria is present. The original MDRD equation for estimated GFR is not valid for patients less than 18 years of age. Additional information may be found at [email or web address]. 6 R74.8 R21 7 R76.12 8 Note: Persistent reduction for 3 months or more in an eGFR <60 mL/min/1.73 m2 defines CKD. Patients with eGFR values >/=60 mL/min/1.73 m2 may also have CKD if evidence of persistent proteinuria is present. The original MDRD equation for estimated GFR is not valid for patients less than 18 years of age. Additional information may be found at [email or web address]. 9 Note: Persistent reduction for 3 months or more in an eGFR <60 mL/min/1.73 m2 defines CKD. Patients with eGFR values >/=60 mL/min/1.73 m2 may also have CKD if evidence of persistent proteinuria is present. The original MDRD equation for estimated GFR is not valid for patients less than 18 years of age. Additional information may be found at [email or web address]. 10 Note: Persistent reduction for 3 months or more in an eGFR <60 mL/min/1.73 m2 defines CKD. Patients with eGFR values >/=60 mL/min/1.73 m2 may also have CKD if evidence of persistent proteinuria is present. The original MDRD equation for estimated GFR is not valid for patients less than 18 years of age. Additional information may be found at [email or web address]. 11 The QuantiFERON-TB Gold Plus result is determined by subtracting the Nil value from either TB antigen (Ag) tube. The mitogen tube serves as a control for the test. 12 QuantiFERON TB1 Ag Value >10.00 IU/mL QuantiFERON TB2 Ag Value >10.00 IU/mL 13 The specimen received for QuantiFERON testing was incubated by the ordering institution. Specific procedures outlined in our Directory of Services and in the package insert for the QuantiFERON Gold (In Tube) test must be followed to enable for proper stimulation of cells for the production of interferon gamma. Performed at: [address] [id number] [facility]: Stephanie Vanegas MD, Phone: [phone] 14 INFCE Result Units: s/co ratio Negative: < 0.8 Indeterminate: 0.8 - 0.9 Positive: > 0.9 The CDC recommends that a positive HCV antibody result be followed up with a HCV Nucleic Acid Amplification test ([id number]). 15 Performed at: [address] [id number] [facility] [employer] [facility]: Stephanie Vanegas MD, Phone: [phone] 16 Non Reactive: Inconsistent with immunity, less than 10 mIU/mL Reactive: Consistent with immunity, greater than 9.9 mIU/mL Performed at: [address] [id number] [facility]: Stephanie Vanegas MD, Phone: [phone] Performed at: [address] [id number] [employer]: Stephanie Vanegas MD, Phone: [phone] Procedures Date Code Description Status 03/30/2018 07445 ECHO Transthoracic Inc Performance Continuous Completed Electrocardio 03/28/2018 28967706 Mammogram Completed 03/06/2018 19407 EKG-Tracing And Report Completed 10/25/2017 08475 Bronchospasm Provocation Evaluation Multi Spirometric Completed Determinati 10/25/2017 59014 Spirometry Completed Encounters Type Date Location Provider Dx Diagnosis Office Visit 07/05/2018 Physical Medicine Kathleen Zapien, R76.12 Nonspec reaction 3:00p & Infectious M.D. to gamma intrfrn Disease respns w/o actv tubrclosis R42 Dizziness and giddiness M05.60 Rheu arthritis of [facility] w involv of organs and systems J45.20 Mild intermittent asthma, uncomplicated Office Visit 05/31/2018 3:00p Physical Medicine Kathleen Zapien, R76.12 Nonspec reaction & Infectious M.D. to gamma intrfrn Disease respns w/o actv tubrclosis R21 Rash and other nonspecific skin eruption R42 Dizziness and giddiness M05.60 Rheu arthritis of [facility] w involv of organs and systems J45.20 Mild intermittent asthma, uncomplicated Office Visit 05/24/2018 3:00p Pulmonology Kylie Noyola, R76.12 Nonspec reaction PA to gamma intrfrn respns w/o actv tubrclosis J45.20 Mild intermittent asthma, uncomplicated J30.2 Other seasonal allergic rhinitis Office Visit 05/03/2018 2:15p Physical Medicine Kathleen Zapien, R76.12 Nonspec reaction & Infectious M.D. to gamma intrfrn Disease respns w/o actv tubrclosis R42 Dizziness and giddiness R21 Rash and other nonspecific skin eruption M05.60 Rheu arthritis of [facility] w involv of organs and systems R07.9 Chest pain, unspecified Office Visit 04/19/2018 Cardiology Jaycee Wong R07.9 Chest pain, 2:40p Office YOGI Nelson, unspecified [employer] Office Visit 04/05/2018 Physical Kathleen Zapien, R76.12 Nonspec reaction 2:00p Medicine & M.D. to gamma intrfrn Infectious respns w/o actv Disease tubrclosis M05.60 Rheu arthritis of [facility] w involv of organs and systems R21 Rash and other nonspecific skin eruption R74.8 Abnormal levels of other serum enzymes Office Visit 03/06/2018 Cardiology Michel Yip R07.9 Chest pain, 10:00a Office Galina Grissom, [facility] unspecified Office Visit 02/27/2018 Physical Kathleen Zapien R76.12 Nonspec reaction 3:15p Medicine & M.D. to gamma intrfrn Infectious respns w/o actv Disease tubrclosis J30.2 Other seasonal allergic rhinitis M05.60 Rheu arthritis of [facility] w involv of organs and systems R42 Dizziness and giddiness Office Visit 01/30/2018 3:15p Physical Medicine Kathleen Zapien R76.12 Nonspec reaction & Infectious M.D. to gamma intrfrn Disease respns w/o actv tubrclosis J30.2 Other seasonal allergic rhinitis J45.20 Mild intermittent asthma, uncomplicated M05.60 Rheu arthritis of [facility] w involv of organs and systems Office Visit 01/18/2018 2:00p Pulmonology Kemar Lorenzo MD R76.12 Nonspec reaction to gamma intrfrn respns w/o actv tubrclosis J45.20 Mild intermittent asthma, uncomplicated J30.2 Other seasonal allergic rhinitis Office Visit 01/16/2018 1:15p Physical Medicine Kathleen Zapien R76.12 Nonspec reaction & Infectious M.D. to gamma intrfrn Disease respns w/o actv tubrclosis M05.60 Rheu arthritis of [facility] w involv of organs and systems J45.20 Mild intermittent asthma, uncomplicated J30.2 Other seasonal allergic rhinitis Office Visit 11/21/2017 2:00p Pulmonology Kemar Lorenzo MD R76.12 Nonspec reaction to gamma intrfrn respns w/o actv tubrclosis J45.20 Mild intermittent asthma, uncomplicated Office Visit 10/19/2017 1:00p Pulmonology Kemar Lorenzo MD R76.12 Nonspec reaction to gamma intrfrn respns w/o actv tubrclosis J45.20 Mild intermittent asthma, uncomplicated Plan of Treatment Future Appointment(s):09/13/2018 3:30 pm - Kathleen Zapien M.D. at [facility]11/21/2018 3:00 pm - Kylie Noyola PA at [facility]/15/2019 - Kathleen Zapien M.D.R76.12 Nonspecific reaction to cell mediated immunity measurement oFollow up:4 weeks - Monthly Labs while on [facility] latent TB meds.M05.60 Rheumatoid arthritis of unspecified site with involvement ofJ45.20 Mild intermittent asthma, uncomplicated
--- OUTSIDE RECORDS SUMMARY | 2018-08-24 12:06 | XMS REPORT | Continuity of Care Document ---
:1965 External Reference #:[id number] Author Name Gera De Leon M.D. Address [facility] [address] [place] [address] Care Team Providers Name Role Phone Jair Paredes MD Care Team Information Inspector Balance Bridge Unavailable Jair Paredes MD Primary Care Physician Unavailable Payers Date Identification Numbers Payment Provider Subscriber Policy Number: [id number] [facility] [place] [place] PayID: [id number] [address] [address] [place] [address] Advance Directives Description No Information Available Problems Description No Information Family History Date Family Member(s) Observation Comments General Unknown Father Noncontributory Mother Noncontributory Social History Type Date Description Comments Sex Unknown ETOH Use Never used alcohol Tobacco Use Start: Unknown Patient has never smoked Smoking Status Reviewed: 08/03/18 Patient has never smoked Allergies, Adverse Reactions, Alerts Active Allergies Reaction Severity Comments Date Hydrocodone 04/26/2018 Medications Active Medications SIG Qnty Indications Ordering Provider Date Prednisolone Acetate 1 drop both eyes 10ml H20.013 Gera De Leon, 2018 1% four times a day M.D. Suspension Isoniazid Take 1 Tablet By Unknown 300mg Tablets Mouth Every Day Fluticasone Propionate Kathleen Hughes 50mcg/Act Suspension Ventolin HFA Inhale 2 Puffs By Unknown 108(90Base) Mouth Every 4 mcg/Act Aerosol Hours as Needed For Cough And Wheezing History Medications Prednisolone Acetate 1 drop both eyes 10ml H20.013 Gera De Leon, 2018 - 1% four times a day M.D. 07/06/2018 Suspension Ciprofloxacin HCL 1 drop four times 5ml Gera De Leon, 05/31/2018 - 0.3% a day start the M.D. 06/13/2018 Solution morning of surgery in the scheduled eye Ketorolac 1 drops right eye 5ml Gera De Leon, 05/31/2018 - Tromethamine twice a day M.D. 06/13/2018 0.5% Solution Prednisolone Acetate 1 drop both eyes 10ml Gera De Leon, 05/31/2018 - 1% every day M.D. 07/03/2018 Suspension Fluticasone Dante 2 Sprays Unknown - Propionate Into Each Nostril 04/26/2018 50mcg/Act One Time Daily Suspension Montelukast Sodium Take 1 Tablet By Unknown - 10mg Mouth Every Day 04/26/2018 Tablets as Needed Bacitracin (External) Apply To Affected Unknown - Area(S) Two Times 04/26/2018 500Unit/GM Ointment Daily For 7 Days Cephalexin Take 1 Capsule By Unknown - 500mg Mouth Four Times 04/26/2018 Capsules Daily For 7 Days Bacitracin (External) Unknown - 04/26/2018 500Unit/GM Ointment Cephalexin Unknown - 500mg 04/26/2018 Capsules Mupirocin Apply To Affected Unknown - 2% Ointment Area In Nose Two 04/26/2018 Times Daily Until Healed , Not More Than 14 Days In A Row Mupirocin Unknown - 2% Ointment 04/26/2018 Montelukast Sodium Unknown - 10mg 04/26/2018 Tablets Ventolin HFA Emilee, - [place] 04/26/2018 108(90Base) mcg/Act Aerosol Fluocinonide Apply Topically Unknown - 0.05% Once Daily as 04/26/2018 Solution Directed Fluocinonide Didier Hensley MD - 0.05% T. 04/26/2018 Solution Vitamin B-6 Take 1 Tablet By Unknown - 50mg Mouth Every Day 04/26/2018 Tablets Vitamin B-6 Kathleen Hughes - 50mg 04/26/2018 Tablets Isoniazid Kathleen Hughes - 300mg Tablets 04/26/2018 Dicyclomine HCL Take 1 Tablet By Unknown - 20mg Mouth Prior To 04/26/2018 Tablets Meals And In The Evening as Needed Dicyclomine HCL Jair Paredes MD - 20mg 04/26/2018 Tablets Mometasone Furoate Kathleen Hughes - 0.1% MD 04/26/2018 Cream Mometasone Furoate Apply On Affected Unknown - 0.1% Sites On Back And 04/26/2018 Cream Forearms Every Day For 5 Days as Directed Naproxen Unknown - 250mg Tablets 04/26/2018 Naproxen Take 1 Tablet By Unknown - 250mg Tablets Mouth Two Times 04/26/2018 Daily as Directed Immunizations Description No Information Available Vital Signs Date Vital Result Comment 08/03/2018 3:14pm Intraocular Pressure Right Eye 13 mmHg Intraocular Pressure Left Eye 13 mmHg 07/06/2018 11:18am Intraocular Pressure Right Eye 13 mmHg Intraocular Pressure Left Eye 13 mmHg 07/03/2018 7:55am Intraocular Pressure Right Eye 12 mmHg Intraocular Pressure Left Eye 12 mmHg 06/13/2018 2:24pm Intraocular Pressure Right Eye 10 mmHg Intraocular Pressure Left Eye 10 mmHg 06/07/2018 10:23am Intraocular Pressure Right Eye 14 mmHg Intraocular Pressure Left Eye 14 mmHg 05/31/2018 11:06am Intraocular Pressure Right Eye 14 mmHg 05/10/2018 3:05pm Intraocular Pressure Right Eye 13 mmHg Intraocular Pressure Left Eye 13 mmHg 04/26/2018 2:18pm Intraocular Pressure Right Eye 12 mmHg Intraocular Pressure Left Eye 12 mmHg Results Description No Information Available Procedures Date Code Description Status 08/03/2018 82159 Eye Exam Est Intermediate Completed 06/06/2018 24057 Extracapsular Cataract Extraction W/Intraocular Lens Completed 05/30/2018 98158 Extracapsular Cataract Extraction W/Intraocular Lens Completed 05/10/2018 86863 Ophthalmic Biometry By Partial Coherence Interferometry Completed W/Intra 05/10/2018 59580 Eye Exam Est Intermediate Completed 04/26/2018 72311 Gonioscopy Completed 04/26/2018 81101 Refraction Completed 04/26/2018 25979 Eye Exam New Intermediate Completed Encounters Type Date Location Provider Dx Diagnosis Office Visit 07/06/2018 Main Office Gera De Leon, H20.013 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
[2018-08-24 12:19] VITALS: BP 117/75
[2018-08-24] MEDS ORDERED: Naproxen TAB* 250 MG PO ONE (12:33)
--- NOTE | 2018-08-24 13:02 | UC ---
Shoulder Pain HPI - HPI Summary HPI Summary: 52-year-old female presents with her son with complaints of left shoulder pain after a fall this morning at around 11 AM. States she accidentally tripped over a stool landing on the floor on her left side. States pain worsens with any movement. Has not taken any mrus-rle-izlittb analgesics. States did not hit her head or lose consciousness. Denies numbness or tingling or any other injury. - History of Current Complaint Chief Complaint: UCUpperExtremity Stated Complaint: SHOULDER PAIN Time Seen by Provider: 08/24/18 12:26 Hx Obtained From: Patient Pain Intensity: 8 - Allergies/Home Medications Allergies/Adverse Reactions: Allergies Allergy/AdvReac Type Severity Reaction Status Date / Time cyclobenzaprine Allergy Unknown Verified 08/24/18 12:10 Reaction Details hydrocodone Allergy Unknown Verified 08/24/18 12:10 Reaction Details pseudoephedrine Allergy Unknown Verified 08/24/18 12:10 Reaction Details buprenorphine AdvReac Nausea And Verified 08/24/18 12:10 Vomiting oxycodone AdvReac Itching Verified 08/24/18 12:10 ENVIRONMENTAL Allergy WATERY EYES Uncoded 08/24/18 12:10 fruit Allergy Unknown Uncoded 08/24/18 12:10 Reaction Details PMH/Surg Hx/FS Hx/Imm Hx Previously Healthy: Yes Respiratory History: Other - Latent TB - Surgical History Surgical History: Yes Surgery Procedure, Year, and Place: hernia repair 2008, [facility]. sinus surgery 2012 - Family History Known Family History: Positive: Non-Contributory - Social History Occupation: Employed Full-time Lives: With Family Alcohol Use: None Substance Use Type: None Smoking Status (MU): Never Smoked Tobacco - Immunization History Most Recent Tetanus Shot: 1999? Review of Systems All Other Systems Reviewed And Are Negative: Yes Constitutional: Positive: Negative Skin: Negative: Bruising Respiratory: Positive: Negative Cardiovascular: Positive: Negative Gastrointestinal: Positive: Negative Genitourinary: Positive: Negative Motor: Negative: Weakness Neurovascular: Negative: Decreased Sensation Musculoskeletal: Positive: Other: - See HPI Neurological: Positive: Negative Is Patient Immunocompromised?: No Physical Exam - Summary Physical Exam Summary: GENERAL APPEARANCE: Well developed, well nourished, alert and cooperative, and appears to be in no acute distress. HEAD: Atraumatic. normocephalic. NECK: Neck supple, non-tender. CARDIAC: Normal S1 and S2. No S3, S4 or murmurs. Rhythm is regular. There is no peripheral edema, cyanosis or pallor. Extremities are warm and well perfused. Capillary refill is less than 2 seconds. Peripheral pulses intact. LUNGS: Clear to auscultation without rales, rhonchi, wheezing or diminished breath sounds. ABDOMEN: Positive bowel sounds. Soft, nondistended, nontender. No guarding or rebound. No masses or hepatosplenomegally. MUSKULOSKELETAL: Normal muscular development. Normal gait. EXTREMITIES: Mild tenderness over the AC joint of the left shoulder without gross deformity, ecchymosis, erythema, or edema. Full passive ROM with some discomfort. Circulation and sensation intact. SKIN: Skin normal color, texture and turgor with no lesions or eruptions. Triage Information Reviewed: Yes Vital Signs: Initial Vital Signs Temp 98 F 08/24/18 12:12 Pulse 87 08/24/18 12:12 Resp 18 08/24/18 12:12 BP 117/75 08/24/18 12:12 Pulse Ox 100 08/24/18 12:12 Vital Signs Reviewed: Yes Diagnostics - Radiology No standard instances Radiology Interpretation Completed By: Radiologist Summary of Radiographic Findings: Order Information: SHOULDER LEFT 2+ VWS. Accession Number: [id number]. CPT: 56294. Indication: Left shoulder pain. 5 views of left shoulder demonstrates no fracture. AC joint arthritis is noted. No other bone or joint abnormality is noted. IMPRESSION: No fracture of the left shoulder is noted. Shoulder Course/Dx - Course Course Of Treatment: 52-year-old female presents with her son with complaints of left shoulder pain after a fall this morning at around 11 AM. States she accidentally tripped over a stool landing on the floor on her left side. States pain worsens with any movement. Has not taken any mouv-fws-asvwkye analgesics. States did not hit her head or lose consciousness. Denies numbness or tingling or any other injury. Afebrile. Vital signs stable. Patient had mild tenderness over the AC joint of the left shoulder without gross deformity, ecchymosis, erythema, or edema. Full passive ROM with some discomfort. Circulation and sensation intact. She was given naproxen 500 mg PO in the clinic for pain. X-ray showed no acute fracture or dislocation. Recommending conservative treatment for a right shoulder sprain versus contusion. She is to take naproxen 500 mg twice a day with food for the next 2 days and then twice a day as needed for pain. Patient was placed in a sling by the RN. Circulation sensation were intact. Post- application. I demonstrated gentle passive range of motion exercises to the patient that she is to perform every 2 hours while awake. She is to follow-up with orthopedic surgery in 5-7 days if symptoms do not improve. Anticipatory guidance and warning symptoms were reviewed with the patient. Verbalizes understanding and agrees with plan of care. - Differential Dx/Diagnosis Differential Diagnosis/HQI/PQRI: AC Separation, Contusion, Dislocation, Rotator Cuff Injury, Sprain Provider Diagnosis: Left shoulder pain Discharge - Sign-Out/Discharge Documenting (check all that apply): Patient Departure All imaging exams completed and their final reports reviewed: Yes - Discharge Plan Condition: Stable Disposition: HOME Prescriptions: Naproxen [Naproxen 500 mg tab] 500 mg PO BID #30 tablet Patient Education Materials: Shoulder Pain (ED) Referrals: Jair Paredes MD [Primary Care Provider] - Keke Medina MD [Medical Doctor] - 5 Days (If symptoms do not improve. Call for appointment.) Additional Instructions: The x-ray of your shoulder performed in the clinic today showed no evidence of a fracture. Rest the arm as much as possible. Use the sling that was provided to you in the clinic for support and comfort for the next 2 days. Do not use for more than 2 days. Do the gentle range of motion exercises that were demonstrated to you every 2 hours while awake to prevent the shoulder from freezing up. Apply ice to the affected area for 15-20 minutes at least 4 times a day to help with the pain and swelling. Take naproxen 500 mg 1 tablet twice a day with food for the next 5 days then may take twice a day as needed for pain. Follow up with orthopedic surgery in 5-7 days if symptoms do not improve. Seek immediate medical attention if you have severe pain not managed with pain medication, develop numbness or tingling in the arm, hand, or fingers, or have any worsening of symptoms. - Billing Disposition and Condition Condition: STABLE Disposition: Home
== END 2018-08-24 13:45 | disposition home or self-care (01) ==
LOC: UCEAST 11:59
DX: M25.512 Pain in left shoulder (principal); Z88.8 Allergy status to other drugs, medicaments and biological substances; Z88.5 Allergy status to narcotic agent; Z91.09 Other allergy status, other than to drugs and biological substances; Z91.018 Allergy to other foods
CPT/HCPCS: 99213; A9270-GY; G0463

== ENCOUNTER 2018-12-05 16:08 | Emergency (ER) | payer OTHER ==
--- OUTSIDE RECORDS SUMMARY | 2018-12-05 16:17 | XMS REPORT | Continuity of Care Document ---
:1965 External Reference #:[id number] Author Name Kathleen Zapien M.D. Address [address] [place] [address] Care Team Providers Name Role Phone Kemar Lorenzo MD - Internal Medicine Care Team Information Audiovisual Equipment Operator [phone] Problems Active Problems Provider Date Allergic rhinitis [...] Chest pain Kathleen Zapien M.D. Onset: 05/03/2018 Edema Kathleen Zapien M.D. Onset: 09/13/2018 Social History Type Date Description Comments Sex Unknown Tobacco Use Start: Unknown Never Smoked Cigarettes Cigarette Use Family Does Not Smoke quite smoking about 5 years ago. Patient was exposed to 2nd hand smoke for many years. Smoking Status Reviewed: 11/15/18 Never Smoked Cigarettes ETOH Use Denies alcohol [...] 50mcg/Act daily . Suspension Vitamin B6 Unknown Clobetasol Propionate Indigo Whyte, 0.05% Solution Immunizations Description No Information Available Vital Signs Date Vital Result Comment 11/15/2018 4:24pm BP Systolic Sitting Left Arm 99 mmHg BP Diastolic Sitting Left Arm 67 mmHg Body Temperature 97.4 F Heart Rate 89 /min Height 60 inches 5'0" Weight 172.00 lb BMI (Body Mass Index) 33.6 kg/m2 BSA (Body Surface Area) 1.75 m2 [place] body weight in kilograms 45 kg 10/18/2018 4:19pm BP Systolic Sitting Left Arm 92 mmHg BP Diastolic Sitting Left Arm 68 mmHg Body Temperature 97.6 F Heart Rate 85 /min Results Test Date Facility Test Result H/L Range Note CBC 11/14/2018 [facility] White Blood 4.9 K/uL Normal 3.1-10.7 1 W/Automated [address] [place] [address] [phone] Red Blood Count 5.17 M/uL Normal 3.90-5.40 Hemoglobin 13.4 gm/dL Normal 11.6-15.8 Hematocrit 43.4 % Normal 36.0-46.1 Mean Cell Volume 83.9 fl Normal 80.9-99.0 Mean Corpuscular HGB 25.9 pg Normal 25.9-32.7 Mean Corpuscular HGB Conc 30.9 g/dL Normal 30.8-34.3 Platelet Count 209 K/uL Normal 155-360 Red Cell Distri Width SD 41.9 fl Normal 36-47 Red Cell Distri Width %CV 13.5 % Normal 11.7-14.4 Mean Platelet Volume 11.1 fl Normal 8.9-12.4 Neut% 51.2 % Normal 40.4-72.8 Lymph % 35.7 % Normal 20.0-42.0 [place] % 8.2 % Normal 4.3-13.2 Eo% 4.1 % Normal 0.0-6.6 Bas% 0.6 % Normal 0.0-1.1 Immature Grans 0.2 % Normal 0.0-5.0 NRBC % 0.0 /100WBC < 10/ 100 WBC Neut# 2.50 K/uL Normal 1.8-7.0 Lymph # 1.74 K/uL Normal 1.0-4.0 [place] # 0.40 K/uL Normal 0.3-0.9 Eos # 0.20 K/uL Normal 0.0-0.5 Baso # 0.03 K/uL Normal 0.0-0.1 Immature Grans Absolute 0.01 K/uL NRBC # 0.00 K/uL Liver Function 11/14/2018 [facility] Total Protein 7.9 g/dL Normal 6.4-8.2 Tests [address] [place] [address] [phone] Albumin 3.8 g/dL Normal 3.4-5.0 Globulin 4.1 g/dL Normal 1.9-4.3 Alb/Glob 0.9 ratio Bilirubin,Total 0.7 mg/dL Normal 0.2-1.0 Bilirubin,Direct 0.2 mg/dL Normal 0.0-0.2 Bilirubin,Indirect 0.5 mg/dL Normal 0.0-0.9 Sgot/Ast 71 U/L High 15-37 SGPT/Alt 96 U/L High 12-78 Alkaline Phosphatase 84 U/L Normal 45-117 Comprehensive 11/14/2018 [facility] Glucose 91 mg/dL Normal 74-106 Metabolic Panel [address] [place] [address] [phone] BUN 10 mg/dL Normal 7-18 Creatinine 0.8 mg/dL Normal 0.6-1.3 Glom Filtration Rate, Estimate >60 mL/min >60 If >60 mL/min >60 2 BUN/Creat 12.5 ratio Sodium 140 mmol/L Normal 136-145 Potassium 4.9 mmol/L Normal 3.5-5.1 Chloride 107 mmol/L Normal 98-107 Carbon Dioxide 29 mmol/L Normal 21-32 Anion Gap 4 mEq/L Low 8-16 Calcium 9.2 mg/dL Normal 8.5-10.1 Laboratory 11/14/2018 [facility] C-Reactive < 3.0 <3.0 test finding [address] Protein,Quant mg/[place] [address] [phone] Liver Function 11/07/2018 [facility] Total Protein 7.2 g/dL Normal 6.4-8.[address] [place] [address] [phone] Albumin 3.6 g/dL Normal 3.4-5.0 Globulin 3.6 g/dL Normal 1.9-4.3 Alb/Glob 1.0 ratio Bilirubin,Total 0.5 mg/dL Normal 0.2-1.0 Bilirubin,Direct 0.1 mg/dL Normal 0.0-0.2 Bilirubin,Indirect 0.4 mg/dL Normal 0.0-0.9 Sgot/Ast 103 U/L High 15-37 SGPT/Alt 96 U/L High 12-78 Alkaline Phosphatase 75 U/L Normal 45-117 Comprehensive 11/07/2018 [facility] Glucose 85 mg/dL Normal 74-106 Metabolic Panel [address] [place] [address] [phone] BUN 13 mg/dL Normal 7-18 Creatinine 0.7 mg/dL Normal 0.6-1.3 Glom Filtration Rate, Estimate >60 mL/min >60 If >60 mL/min >60 3 BUN/Creat 18.5 ratio Sodium 143 mmol/L Normal 136-145 Potassium 4.2 mmol/L Normal 3.5-5.1 Chloride 111 mmol/L High 98-107 Carbon Dioxide 28 mmol/L Normal 21-32 Anion Gap 4 mEq/L Low 8-16 Calcium 8.9 mg/dL Normal 8.5-10.1 Laboratory 11/07/2018 [facility] C-Reactive < 3.0 <3.0 test finding [address] Protein,Quant mg/[place] [address] [phone] CBC 11/07/2018 [facility] White Blood Count 5.4 K/uL Normal 3.1-10.7 W/Automated [address] [place] [address] [phone] Red Blood Count 4.83 M/uL Normal 3.90-5.40 Hemoglobin 12.9 gm/dL Normal 11.6-15.8 Hematocrit 40.5 % Normal 36.0-46.1 Mean Cell Volume 83.9 fl Normal 80.9-99.0 Mean Corpuscular HGB 26.7 pg Normal 25.9-32.7 Mean Corpuscular HGB Conc 31.9 g/dL Normal 30.8-34.3 Platelet Count 207 K/uL Normal 155-360 Red Cell Distri Width SD 41.4 fl Normal 36-47 Red Cell Distri Width %CV 13.5 % Normal 11.7-14.4 Mean Platelet Volume 11.3 fl Normal 8.9-12.4 Neut% 53.6 % Normal 40.4-72.8 Lymph % 34.1 % Normal 20.0-42.0 [place] % 7.4 % Normal 4.3-13.2 Eo% 3.9 % Normal 0.0-6.6 Bas% 0.6 % Normal 0.0-1.1 Immature Grans 0.4 % Normal 0.0-5.0 NRBC % 0.0 /100WBC < 10/ 100 WBC Neut# 2.90 K/uL Normal 1.8-7.0 Lymph # 1.84 K/uL Normal 1.0-4.0 [place] # 0.40 K/uL Normal 0.3-0.9 Eos # 0.21 K/uL Normal 0.0-0.5 Baso # 0.03 K/uL Normal 0.0-0.1 Immature Grans Absolute 0.02 K/uL NRBC # 0.00 K/uL Laboratory test 10/31/2018 [facility] C-Reactive < 3.0 <3.[address] Protein,Quant mg/[place] [address] [phone] Comprehensive 10/31/2018 [facility] Glucose 89 Normal 74-106 Metabolic Panel [address] mg/[place] [address] [phone] BUN 12 mg/dL Normal 7-18 Creatinine 0.7 mg/dL Normal 0.6-1.3 Glom Filtration Rate, Estimate >60 mL/min >60 If >60 mL/min >60 4 BUN/Creat 17.1 ratio Sodium 142 mmol/L Normal 136-145 Potassium 3.8 mmol/L Normal 3.5-5.1 Chloride 108 mmol/L High 98-107 Carbon Dioxide 28 mmol/L Normal 21-32 Anion Gap 6 mEq/L Low 8-16 Calcium 9.1 mg/dL Normal 8.5-10.1 Liver Function 10/31/2018 [facility] Total Protein 7.8 g/dL Normal 6.4-8.[address] [place] [address] [phone] Albumin 3.9 g/dL Normal 3.4-5.0 Globulin 3.9 g/dL Normal 1.9-4.3 Alb/Glob 1.0 ratio Bilirubin,Total 0.6 mg/dL Normal 0.2-1.0 Bilirubin,Direct 0.1 mg/dL Normal 0.0-0.2 Bilirubin,Indirect 0.5 mg/dL Normal 0.0-0.9 Sgot/Ast 99 U/L High 15-37 SGPT/Alt 85 U/L High 12-78 Alkaline Phosphatase 85 U/L Normal 45-117 CBC W/Automated 10/31/2018 [facility] White Blood 4.6 K/uL Normal 3.1-10.[address] [place] [address] [phone] Red Blood Count 4.99 M/uL Normal 3.90-5.40 Hemoglobin 13.0 gm/dL Normal 11.6-15.8 Hematocrit 41.8 % Normal 36.0-46.1 Mean Cell Volume 83.8 fl Normal 80.9-99.0 Mean Corpuscular HGB 26.1 pg Normal 25.9-32.7 Mean Corpuscular HGB Conc 31.1 g/dL Normal 30.8-34.3 Platelet Count 201 K/uL Normal 155-360 Red Cell Distri Width SD 41.4 fl Normal 36-47 Red Cell Distri Width %CV 13.5 % Normal 11.7-14.4 Mean Platelet Volume 11.1 fl Normal 8.9-12.4 Neut% 60.1 % Normal 40.4-72.8 Lymph % 27.5 % Normal 20.0-42.0 [place] % 7.4 % Normal 4.3-13.2 Eo% 4.1 % Normal 0.0-6.6 Bas% 0.7 % Normal 0.0-1.1 Immature Grans 0.2 % Normal 0.0-5.0 NRBC % 0.0 /100WBC < 10/ 100 WBC Neut# 2.75 K/uL Normal 1.8-7.0 Lymph # 1.26 K/uL Normal 1.0-4.0 [place] # 0.34 K/uL Normal 0.3-0.9 Eos # 0.19 K/uL Normal 0.0-0.5 Baso # 0.03 K/uL Normal 0.0-0.1 Immature Grans Absolute 0.01 K/uL NRBC # 0.00 K/uL CBC W/Automated 10/24/2018 [facility] White Blood 5.2 K/uL Normal 3.1-10.[address] [place] [address] [phone] Red Blood Count 4.78 M/uL Normal 3.90-5.40 Hemoglobin 12.9 gm/dL Normal 11.6-15.8 Hematocrit 40.3 % Normal 36.0-46.1 Mean Cell Volume 84.3 fl Normal 80.9-99.0 Mean Corpuscular HGB 27.0 pg Normal 25.9-32.7 Mean Corpuscular HGB Conc 32.0 g/dL Normal 30.8-34.3 Platelet Count 192 K/uL Normal 155-360 Red Cell Distri Width SD 42.4 fl Normal 36-47 Red Cell Distri Width %CV 13.7 % Normal 11.7-14.4 Mean Platelet Volume 11.0 fl Normal 8.9-12.4 Neut% 56.8 % Normal 40.4-72.8 Lymph % 30.3 % Normal 20.0-42.0 [place] % 7.7 % Normal 4.3-13.2 Eo% 4.2 % Normal 0.0-6.6 Bas% 0.6 % Normal 0.0-1.1 Immature Grans 0.4 % Normal 0.0-5.0 NRBC % 0.0 /100WBC < 10/ 100 WBC Neut# 2.97 K/uL Normal 1.8-7.0 Lymph # 1.58 K/uL Normal 1.0-4.0 [place] # 0.40 K/uL Normal 0.3-0.9 Eos # 0.22 K/uL Normal 0.0-0.5 Baso # 0.03 K/uL Normal 0.0-0.1 Immature Grans Absolute 0.02 K/uL NRBC # 0.00 K/uL Liver Function 10/24/2018 [facility] Total Protein 7.3 g/dL Normal 6.4-8.2 Tests [address] [place] [address] [phone] Albumin 3.6 g/dL Normal 3.4-5.0 Globulin 3.7 g/dL Normal 1.9-4.3 Alb/Glob 1.0 ratio Bilirubin,Total 0.6 mg/dL Normal 0.2-1.0 Bilirubin,Direct 0.1 mg/dL Normal 0.0-0.2 Bilirubin,Indirect 0.5 mg/dL Normal 0.0-0.9 Sgot/Ast 96 U/L High 15-37 SGPT/Alt 89 U/L High 12-78 Alkaline Phosphatase 76 U/L Normal 45-117 Comprehensive 10/24/2018 [facility] Glucose 91 mg/dL Normal 74-106 Metabolic Panel [address] [place] [address] [phone] BUN 13 mg/dL Normal 7-18 Creatinine 0.8 mg/dL Normal 0.6-1.3 Glom Filtration Rate, Estimate >60 mL/min >60 If >60 mL/min >60 5 BUN/Creat 16.2 ratio Sodium 143 mmol/L Normal 136-145 Potassium 4.5 mmol/L Normal 3.5-5.1 Chloride 109 mmol/L High 98-107 Carbon Dioxide 28 mmol/L Normal 21-32 Anion Gap 6 mEq/L Low 8-16 Calcium 8.9 mg/dL Normal 8.5-10.1 Laboratory 10/24/2018 [facility] C-Reactive < 3.0 <3.0 test finding [address] [facility] Protein,Quant mg/[place] [address] [phone] CBC 10/17/2018 [facility] White Blood Count 5.4 K/uL Normal 3.1-10.7 W/Automated [address] [place] [address] [phone] Red Blood Count 4.76 M/uL Normal 3.90-5.40 Hemoglobin 12.6 gm/dL Normal 11.6-15.8 Hematocrit 40.3 % Normal 36.0-46.1 Mean Cell Volume 84.7 fl Normal 80.9-99.0 Mean Corpuscular HGB 26.5 pg Normal 25.9-32.7 Mean Corpuscular HGB Conc 31.3 g/dL Normal 30.8-34.3 Platelet Count 180 K/uL Normal 155-360 Red Cell Distri Width SD 42.7 fl Normal 36-47 Red Cell Distri Width %CV 13.8 % Normal 11.7-14.4 Mean Platelet Volume 11.1 fl Normal 8.9-12.4 Neut% 58.6 % Normal 40.4-72.8 Lymph % 28.1 % Normal 20.0-42.0 [place] % 8.0 % Normal 4.3-13.2 Eo% 4.5 % Normal 0.0-6.6 Bas% 0.6 % Normal 0.0-1.1 Immature Grans 0.2 % Normal 0.0-5.0 NRBC % 0.0 /100WBC < 10/ 100 WBC Neut# 3.15 K/uL Normal 1.8-7.0 Lymph # 1.51 K/uL Normal 1.0-4.0 [place] # 0.43 K/uL Normal 0.3-0.9 Eos # 0.24 K/uL Normal 0.0-0.5 Baso # 0.03 K/uL Normal 0.0-0.1 Immature Grans Absolute 0.01 K/uL NRBC # 0.00 K/uL Liver Function 10/17/2018 [facility] Total Protein 7.6 g/dL Normal 6.4-8.2 Tests [address] [place] [address] [phone] Albumin 3.7 g/dL Normal 3.4-5.0 Globulin 3.9 g/dL Normal 1.9-4.3 Alb/Glob 0.9 ratio Bilirubin,Total 0.6 mg/dL Normal 0.2-1.0 Bilirubin,Direct 0.1 mg/dL Normal 0.0-0.2 Bilirubin,Indirect 0.5 mg/dL Normal 0.0-0.9 Sgot/Ast 105 U/L High 15-37 SGPT/Alt 85 U/L High 12-78 Alkaline Phosphatase 79 U/L Normal 45-117 Comprehensive 10/17/2018 [facility] Glucose 96 mg/dL Normal 74-106 Metabolic Panel [address] [place] [address] [phone] BUN 12 mg/dL Normal 7-18 Creatinine 0.8 mg/dL Normal 0.6-1.3 Glom Filtration Rate, Estimate >60 mL/min >60 If >60 mL/min >60 6 BUN/Creat 15.0 ratio Sodium 142 mmol/L Normal 136-145 Potassium 4.3 mmol/L Normal 3.5-5.1 Chloride 108 mmol/L High 98-107 Carbon Dioxide 30 mmol/L Normal 21-32 Anion Gap 4 mEq/L Low 8-16 Calcium 8.6 mg/dL Normal 8.5-10.1 Laboratory test 10/17/2018 [facility] C-Reactive < 3.0 <3.[address] Protein,Quant mg/[place] [address] [phone] Laboratory test 10/10/2018 [facility] C-Reactive < 3.0 <3.[address] Protein,Quant mg/[place] [address] [phone] Comprehensive 10/10/2018 [facility] Glucose 93 Normal 74-106 Metabolic Panel [address] mg/[place] [address] [phone] BUN 8 mg/dL Normal 7-18 Creatinine 0.7 mg/dL Normal 0.6-1.3 Glom Filtration Rate, Estimate >60 mL/min >60 If >60 mL/min >60 7 BUN/Creat 11.4 ratio Sodium 142 mmol/L Normal 136-145 Potassium 4.9 mmol/L Normal 3.5-5.1 Chloride 108 mmol/L High 98-107 Carbon Dioxide 30 mmol/L Normal 21-32 Anion Gap 4 mEq/L Low 8-16 Calcium 9.0 mg/dL Normal 8.5-10.1 Liver Function 10/10/2018 [facility] Total Protein 7.5 g/dL Normal 6.4-8.[address] [place] [address] [phone] Albumin 3.7 g/dL Normal 3.4-5.0 Globulin 3.8 g/dL Normal 1.9-4.3 Alb/Glob 1.0 ratio Bilirubin,Total 0.5 mg/dL Normal 0.2-1.0 Bilirubin,Direct 0.1 mg/dL Normal 0.0-0.2 Bilirubin,Indirect 0.4 mg/dL Normal 0.0-0.9 Sgot/Ast 88 U/L High 15-37 SGPT/Alt 77 U/L Normal 12-78 Alkaline Phosphatase 85 U/L Normal 45-117 CBC W/Automated 10/10/2018 [facility] White Blood 5.0 K/uL Normal 3.1-10.[address] Count [place], [place] [address] [phone] Red Blood Count 4.87 M/uL Normal 3.90-5.40 Hemoglobin 13.0 gm/dL Normal 11.6-15.8 Hematocrit 41.3 % Normal 36.0-46.1 Mean Cell Volume 84.8 fl Normal 80.9-99.0 Mean Corpuscular HGB 26.7 pg Normal 25.9-32.7 Mean Corpuscular HGB Conc 31.5 g/dL Normal 30.8-34.3 Platelet Count 203 K/uL Normal 155-360 Red Cell Distri Width SD 42.5 fl Normal 36-47 Red Cell Distri Width %CV 13.7 % Normal 11.7-14.4 Mean Platelet Volume 11.7 fl Normal 8.9-12.4 Neut% 55.7 % Normal 40.4-72.8 Lymph % 30.4 % Normal 20.0-42.0 [place] % 8.5 % Normal 4.3-13.2 Eo% 4.4 % Normal 0.0-6.6 Bas% 0.6 % Normal 0.0-1.1 Immature Grans 0.4 % Normal 0.0-5.0 NRBC % 0.0 /100WBC < 10/ 100 WBC Neut# 2.80 K/uL Normal 1.8-7.0 Lymph # 1.53 K/uL Normal 1.0-4.0 [place] # 0.43 K/uL Normal 0.3-0.9 Eos # 0.22 K/uL Normal 0.0-0.5 Baso # 0.03 K/uL Normal 0.0-0.1 Immature Grans Absolute 0.02 K/uL NRBC # 0.00 K/uL CBC W/Automated 10/03/2018 [facility] White Blood 6.0 K/uL Normal 3.1-10.[address] [place] [address] [phone] Red Blood Count 4.88 M/uL Normal 3.90-5.40 Hemoglobin 13.1 gm/dL Normal 11.6-15.8 Hematocrit 40.5 % Normal 36.0-46.1 Mean Cell Volume 83.0 fl Normal 80.9-99.0 Mean Corpuscular HGB 26.8 pg Normal 25.9-32.7 Mean Corpuscular HGB Conc 32.3 g/dL Normal 30.8-34.3 Platelet Count 212 K/uL Normal 155-360 Red Cell Distri Width SD 41.6 fl Normal 36-47 Red Cell Distri Width %CV 13.7 % Normal 11.7-14.4 Mean Platelet Volume 11.5 fl Normal 8.9-12.4 Neut% 56.8 % Normal 40.4-72.8 Lymph % 29.6 % Normal 20.0-42.0 [place] % 8.5 % Normal 4.3-13.2 Eo% 4.5 % Normal 0.0-6.6 Bas% 0.3 % Normal 0.0-1.1 Immature Grans 0.3 % Normal 0.0-5.0 NRBC % 0.0 /100WBC < 10/ 100 WBC Neut# 3.39 K/uL Normal 1.8-7.0 Lymph # 1.77 K/uL Normal 1.0-4.0 [place] # 0.51 K/uL Normal 0.3-0.9 Eos # 0.27 K/uL Normal 0.0-0.5 Baso # 0.02 K/uL Normal 0.0-0.1 Immature Grans Absolute 0.02 K/uL NRBC # 0.00 K/uL Liver Function 10/03/2018 [facility] Total Protein 7.8 g/dL Normal 6.4-8.2 Tests [address] [place] [address] [phone] Albumin 3.8 g/dL Normal 3.4-5.0 Globulin 4.0 g/dL Normal 1.9-4.3 Alb/Glob 1.0 ratio Bilirubin,Total 0.5 mg/dL Normal 0.2-1.0 Bilirubin,Direct < 0.1 mg/dL Normal 0.0-0.2 Bilirubin,Indirect 0.4 mg/dL Normal 0.0-0.9 Sgot/Ast 96 U/L High 15-37 SGPT/Alt 83 U/L High 12-78 Alkaline Phosphatase 82 U/L Normal 45-117 Comprehensive 10/03/2018 [facility] Glucose 90 mg/dL Normal 74-106 Metabolic Panel [address] [place] [address] [phone] BUN 13 mg/dL Normal 7-18 Creatinine 0.8 mg/dL Normal 0.6-1.3 Glom Filtration Rate, Estimate >60 mL/min >60 If >60 mL/min >60 8 BUN/Creat 16.2 ratio Sodium 140 mmol/L Normal 136-145 Potassium 5.0 mmol/L Normal 3.5-5.1 Chloride 107 mmol/L Normal 98-107 Carbon Dioxide 30 mmol/L Normal 21-32 Anion Gap 3 mEq/L Low 8-16 Calcium 9.2 mg/dL Normal 8.5-10.1 Laboratory 10/03/2018 [facility] C-Reactive < 3.0 <3.0 test finding 134 [facility] Protein,Quant mg/[place] [address] [phone] CBC 09/26/2018 [facility] White Blood Count 5.3 K/uL Normal 3.1-10.7 W/Automated [address] [place] [address] [phone] Red Blood Count 4.98 M/uL Normal 3.90-5.40 Hemoglobin 13.1 gm/dL Normal 11.6-15.8 Hematocrit 42.2 % Normal 36.0-46.1 Mean Cell Volume 84.7 fl Normal 80.9-99.0 Mean Corpuscular HGB 26.3 pg Normal 25.9-32.7 Mean Corpuscular HGB Conc 31.0 g/dL Normal 30.8-34.3 Platelet Count 223 K/uL Normal 155-360 Red Cell Distri Width SD 42.1 fl Normal 36-47 Red Cell Distri Width %CV 13.7 % Normal 11.7-14.4 Mean Platelet Volume 11.6 fl Normal 8.9-12.4 Neut% 56.6 % Normal 40.4-72.8 Lymph % 29.4 % Normal 20.0-42.0 [place] % 8.1 % Normal 4.3-13.2 Eo% 4.9 % Normal 0.0-6.6 Bas% 0.6 % Normal 0.0-1.1 Immature Grans 0.4 % Normal 0.0-5.0 NRBC % 0.0 /100WBC < 10/ 100 WBC Neut# 3.01 K/uL Normal 1.8-7.0 Lymph # 1.56 K/uL Normal 1.0-4.0 [place] # 0.43 K/uL Normal 0.3-0.9 Eos # 0.26 K/uL Normal 0.0-0.5 Baso # 0.03 K/uL Normal 0.0-0.1 Immature Grans Absolute 0.02 K/uL NRBC # 0.00 K/uL Liver Function 09/26/2018 [facility] Total Protein 7.8 g/dL Normal 6.4-8.2 Tests [address] [place], [place] [id number] [phone] Albumin 3.9 g/dL Normal 3.4-5.0 Globulin 3.9 g/dL Normal 1.9-4.3 Alb/Glob 1.0 ratio Bilirubin,Total 0.3 mg/dL Normal 0.2-1.0 Bilirubin,Direct < 0.1 mg/dL Normal 0.0-0.2 Bilirubin,Indirect 0.2 mg/dL Normal 0.0-0.9 Sgot/Ast 97 U/L High 15-37 SGPT/Alt 85 U/L High 12-78 Alkaline Phosphatase 85 U/L Normal 45-117 Comprehensive 09/26/2018 [facility] Glucose 91 mg/dL Normal 74-106 Metabolic Panel [address] [place] [address] [phone] BUN 12 mg/dL Normal 7-18 Creatinine 0.8 mg/dL Normal 0.6-1.3 Glom Filtration Rate, Estimate >60 mL/min >60 If >60 mL/min >60 9 BUN/Creat 15.0 ratio Sodium 141 mmol/L Normal 136-145 Potassium 5.3 mmol/L High 3.5-5.1 Chloride 107 mmol/L Normal 98-107 Carbon Dioxide 30 mmol/L Normal 21-32 Anion Gap 4 mEq/L Low 8-16 Calcium 9.3 mg/dL Normal 8.5-10.1 Laboratory 09/26/2018 [facility] C-Reactive < 3.0 <3.0 test finding [address] Protein,Quant mg/[place] [address] [phone] Laboratory 09/20/2018 [facility] C-Reactive < 3.0 <3.0 test finding [address] Protein,Quant mg/[place] [address] [phone] CBC 09/20/2018 [facility] White Blood Count 5.9 K/uL Normal 3.1-10.7 W/Automated [address] [place] [address] [phone] Red Blood Count 4.69 M/uL Normal 3.90-5.40 Hemoglobin 12.6 gm/dL Normal 11.6-15.8 Hematocrit 39.1 % Normal 36.0-46.1 Mean Cell Volume 83.4 fl Normal 80.9-99.0 Mean Corpuscular HGB 26.9 pg Normal 25.9-32.7 Mean Corpuscular HGB Conc 32.2 g/dL Normal 30.8-34.3 Platelet Count 201 K/uL Normal 155-360 Red Cell Distri Width SD 41.5 fl Normal 36-47 Red Cell Distri Width %CV 13.7 % Normal 11.7-14.4 Mean Platelet Volume 11.1 fl Normal 8.9-12.4 Neut% 60.5 % Normal 40.4-72.8 Lymph % 27.5 % Normal 20.0-42.0 [place] % 7.5 % Normal 4.3-13.2 Eo% 3.8 % Normal 0.0-6.6 Bas% 0.5 % Normal 0.0-1.1 Immature Grans 0.2 % Normal 0.0-5.0 NRBC % 0.0 /100WBC < 10/ 100 WBC Neut# 3.55 K/uL Normal 1.8-7.0 Lymph # 1.61 K/uL Normal 1.0-4.0 [place] # 0.44 K/uL Normal 0.3-0.9 Eos # 0.22 K/uL Normal 0.0-0.5 Baso # 0.03 K/uL Normal 0.0-0.1 Immature Grans Absolute 0.01 K/uL NRBC # 0.00 K/uL Comprehensive 09/20/2018 [facility] Glucose 92 mg/dL Normal 74-106 Metabolic Panel [address] [place], [place] [id number] [phone] BUN 11 mg/dL Normal 7-18 Creatinine 0.7 mg/dL Normal 0.6-1.3 Glom Filtration Rate, Estimate >60 mL/min >60 If >60 mL/min >60 10 BUN/Creat 15.7 ratio Sodium 140 mmol/L Normal 136-145 Potassium 4.6 mmol/L 3.5-5.1 Chloride 108 mmol/L High 98-107 Carbon Dioxide 28 mmol/L Normal 21-32 Anion Gap 4 mEq/L Low 8-16 Calcium 9.3 mg/dL Normal 8.5-10.1 Liver Function 09/20/2018 [facility] Total Protein 7.6 g/dL Normal 6.4-8.2 Tests [address] [place], [place] [id number] [phone] Albumin 3.8 g/dL Normal 3.4-5.0 Globulin 3.8 g/dL Normal 1.9-4.3 Alb/Glob 1.0 ratio Bilirubin,Total 0.4 mg/dL Normal 0.2-1.0 Bilirubin,Direct < 0.1 mg/dL Normal 0.0-0.2 Bilirubin,Indirect 0.3 mg/dL Normal 0.0-0.9 Sgot/Ast 87 U/L High 15-37 SGPT/Alt 76 U/L Normal 12-78 Alkaline Phosphatase 80 U/L Normal 45-117 CBC W/Automated 09/13/2018 [facility] White 6.6 K/uL Normal 3.1-10.7 11 Diff 134 [facility] [place] [address] Count [phone] Red Blood Count 4.55 M/uL Normal 3.90-5.40 Hemoglobin 12.2 gm/dL Normal 11.6-15.8 Hematocrit 38.2 % Normal 36.0-46.1 Mean Cell Volume 84.0 fl Normal 80.9-99.0 Mean Corpuscular HGB 26.8 pg Normal 25.9-32.7 Mean Corpuscular HGB Conc 31.9 g/dL Normal 30.8-34.3 Platelet Count 223 K/uL Normal 155-360 Red Cell Distri Width SD 42.5 fl Normal 36-47 Red Cell Distri Width %CV 13.9 % Normal 11.7-14.4 Mean Platelet Volume 11.5 fl Normal 8.9-12.4 Neut% 62.3 % Normal 40.4-72.8 Lymph % 24.6 % Normal 20.0-42.0 [place] % 8.1 % Normal 4.3-13.2 Eo% 4.2 % Normal 0.0-6.6 Bas% 0.5 % Normal 0.0-1.1 Immature Grans 0.3 % Normal 0.0-5.0 NRBC % 0.0 /100WBC < 10/ 100 WBC Neut# 4.13 K/uL Normal 1.8-7.0 Lymph # 1.63 K/uL Normal 1.0-4.0 [place] # 0.54 K/uL Normal 0.3-0.9 Eos # 0.28 K/uL Normal 0.0-0.5 Baso # 0.03 K/uL Normal 0.0-0.1 Immature Grans Absolute 0.02 K/uL NRBC # 0.00 K/uL Comprehensive 09/13/2018 [facility] Glucose 77 mg/dL Normal 74-106 Metabolic Panel [address] [place] [address] [phone] BUN 12 mg/dL Normal 7-18 Creatinine 0.7 mg/dL Normal 0.6-1.3 Glom Filtration Rate, Estimate >60 mL/min >60 If >60 mL/min >60 12 BUN/Creat 17.1 ratio Sodium 142 mmol/L Normal 136-145 Potassium 3.6 mmol/L Normal 3.5-5.1 Chloride 108 mmol/L High 98-107 Carbon Dioxide 29 mmol/L Normal 21-32 Anion Gap 5 mEq/L Low 8-16 Calcium 8.9 mg/dL Normal 8.5-10.1 Total Protein 7.4 g/dL Normal 6.4-8.2 Albumin 3.7 g/dL Normal 3.4-5.0 Globulin 3.7 g/dL Normal 1.9-4.3 Alb/Glob 1.0 ratio Bilirubin,Total 0.4 mg/dL Normal 0.2-1.0 Sgot/Ast 69 U/L High 15-37 SGPT/Alt 65 U/L Normal 12-78 Alkaline Phosphatase 82 U/L Normal 45-117 Laboratory test 09/13/2018 [facility] C-Reactive < 3.0 <3.[address] Protein,Quant mg/[place] [address] [phone] Comprehensive 08/09/2018 [facility] Glucose 105 Normal 74-106 Metabolic Panel [address] mg/[place] [address] [phone] BUN 13 mg/dL Normal 7-18 Creatinine 0.8 mg/dL Normal 0.6-1.3 Glom Filtration Rate, Estimate >60 mL/min >60 If >60 mL/min >60 13 BUN/Creat 16.2 ratio Sodium 141 mmol/L Normal 136-145 Potassium 3.9 mmol/L Normal 3.5-5.1 Chloride 108 mmol/L High 98-107 Carbon Dioxide 27 mmol/L Normal 21-32 Anion Gap 6 mEq/L Low 8-16 Calcium 8.9 mg/dL Normal 8.5-10.1 Total Protein 7.5 g/dL Normal 6.4-8.2 Albumin 3.9 g/dL Normal 3.4-5.0 Globulin 3.6 g/dL Normal 1.9-4.3 Alb/Glob 1.1 ratio Bilirubin,Total 0.5 mg/dL Normal 0.2-1.0 Sgot/Ast 53 U/L High 15-37 SGPT/Alt 56 U/L Normal 12-78 Alkaline Phosphatase 73 U/L Normal 45-117 CBC W/Automated 08/09/2018 [facility] White Blood 5.7 K/uL Normal 3.1-10.[address] [place] [address] [phone] Red Blood Count 4.70 M/uL Normal 3.90-5.40 Hemoglobin 12.6 gm/dL Normal 11.6-15.8 Hematocrit 39.0 % Normal 36.0-46.1 Mean Cell Volume 83.0 fl Normal 80.9-99.0 Mean Corpuscular HGB 26.8 pg Normal 25.9-32.7 Mean Corpuscular HGB Conc 32.3 g/dL Normal 30.8-34.3 Platelet Count 201 K/uL Normal 155-360 Red Cell Distri Width SD 41.7 fl Normal 36-47 Red Cell Distri Width %CV 13.9 % Normal 11.7-14.4 Mean Platelet Volume 11.0 fl Normal 8.9-12.4 Neut% 63.3 % Normal 40.4-72.8 Lymph % 26.8 % Normal 20.0-42.0 [place] % 6.6 % Normal 4.3-13.2 Eo% 2.6 % Normal 0.0-6.6 Bas% 0.5 % Normal 0.0-1.1 Immature Grans 0.2 % Normal 0.0-5.0 NRBC % 0.0 /100WBC < 10/ 100 WBC Neut# 3.63 K/uL Normal 1.8-7.0 Lymph # 1.54 K/uL Normal 1.0-4.0 Zapata # 0.38 K/uL Normal 0.3-0.9 Eos # 0.15 K/uL Normal 0.0-0.5 Baso # 0.03 K/uL Normal 0.0-0.1 Immature Grans Absolute 0.01 K/uL NRBC # 0.00 K/uL Laboratory 08/09/2018 [facility] C-Reactive < 3.0 <3.0 test finding [address] Protein,Quant mg/[place] [address] [phone] CBC 07/05/2018 [facility] White Blood Count 5.5 K/uL Normal 3.1-10.7 W/Automated [address] [place] [place] [address] [phone] Red Blood Count 4.88 M/uL Normal 3.90-5.40 Hemoglobin 12.9 gm/dL Normal 11.6-15.8 Hematocrit 40.4 % Normal 36.0-46.1 Mean Cell Volume 82.8 fl Normal 80.9-99.0 Mean Corpuscular HGB 26.4 pg Normal 25.9-32.7 Mean Corpuscular HGB Conc 31.9 g/dL Normal 30.8-34.3 Platelet Count 219 K/uL Normal 155-360 Red Cell Distri Width SD 41.5 fl Normal 36-47 Red Cell Distri Width %CV 14.0 % Normal 11.7-14.4 Mean Platelet Volume 11.1 fl Normal 8.9-12.4 Neut% 63.3 % Normal 40.4-72.8 Lymph % 25.1 % Normal 20.0-42.0 [place] % 7.5 % Normal 4.3-13.2 Eo% 3.3 % Normal 0.0-6.6 Bas% 0.4 % Normal 0.0-1.1 Immature Grans 0.4 % Normal 0.0-5.0 NRBC % 0.0 /100WBC < 10/ 100 WBC Neut# 3.46 K/uL Normal 1.8-7.0 Lymph # 1.37 K/uL Normal 1.0-4.0 [place] # 0.41 K/uL Normal 0.3-0.9 Eos # 0.18 K/uL Normal 0.0-0.5 Baso # 0.02 K/uL Normal 0.0-0.1 Immature Grans Absolute 0.02 K/uL NRBC # 0.00 K/uL Comprehensive 07/05/2018 [facility] Glucose 86 mg/dL Normal 74-106 Metabolic Panel [address] [place] [address] [phone] BUN 15 mg/dL Normal 7-18 Creatinine 0.8 mg/dL Normal 0.6-1.3 Glom Filtration Rate, Estimate >60 mL/min >60 If >60 mL/min >60 14 BUN/Creat 18.7 ratio Sodium 144 mmol/L Normal 136-145 Potassium 4.2 mmol/L Normal 3.5-5.1 Chloride 107 mmol/L Normal 98-107 Carbon Dioxide 33 mmol/L High 21-32 Anion Gap 4 mEq/L Low 8-16 Calcium 9.3 mg/dL Normal 8.5-10.1 Total Protein 7.9 g/dL Normal 6.4-8.2 Albumin 4.0 g/dL Normal 3.4-5.0 Globulin 3.9 g/dL Normal 1.9-4.3 Alb/Glob 1.0 ratio Bilirubin,Total 0.5 mg/dL Normal 0.2-1.0 Sgot/Ast 41 U/L High 15-37 SGPT/Alt 41 U/L Normal 12-78 Alkaline Phosphatase 77 U/L Normal 45-117 CBC W/Automated 05/31/2018 [facility] White Blood 5.6 K/uL Normal 3.1-10.[address] [place] [address] [phone] Red Blood Count 5.09 M/uL Normal 3.90-5.40 Hemoglobin 13.3 gm/dL Normal 11.6-15.8 Hematocrit 41.4 % Normal 36.0-46.1 Mean Cell Volume 81.3 fl Normal 80.9-99.0 Mean Corpuscular HGB 26.1 pg Normal 25.9-32.7 Mean Corpuscular HGB Conc 32.1 g/dL Normal 30.8-34.3 Platelet Count 230 K/uL Normal 155-360 Red Cell Distri Width SD 42.0 fl Normal 36-47 Red Cell Distri Width %CV 14.4 % Normal 11.7-14.4 Mean Platelet Volume 10.5 fL Normal 8.9-12.4 Neut% 61.0 % Normal 40.4-72.8 Lymph % 27.2 % Normal 20.0-42.0 [place] % 7.4 % Normal 4.3-13.2 Eo% 4.0 % Normal 0.0-6.6 Bas% 0.4 % Normal 0.0-1.1 Neut# 3.40 K/uL Normal 1.8-7.0 Lymph # 1.51 K/uL Normal 1.0-4.0 [place] # 0.41 K/uL Normal 0.3-0.9 Eos # 0.22 K/uL Normal 0.0-0.5 Baso # 0.02 K/uL Normal 0.0-0.1 Comprehensive 05/31/2018 [facility] Glucose 84 mg/dL Normal 74-106 Metabolic Panel [address] [place] [address] [phone] BUN 9 mg/dL Normal 7-18 Creatinine 0.8 mg/dL Normal 0.6-1.3 Glom Filtration Rate, Estimate >60 mL/min >60 If >60 mL/min >60 15 BUN/Creat 11.2 ratio Sodium 142 mmol/L Normal 136-145 Potassium 4.2 mmol/L Normal 3.5-5.1 Chloride 106 mmol/L Normal 98-107 Carbon Dioxide 31 mmol/L Normal 21-32 Anion Gap 5 mEq/L Low 8-16 Calcium 8.6 mg/dL Normal 8.5-10.1 Total Protein 7.3 g/dL Normal 6.4-8.2 Albumin 3.5 g/dL Normal 3.4-5.0 Globulin 3.8 g/dL Normal 1.9-4.3 Alb/Glob 0.9 ratio Bilirubin,Total 0.4 mg/dL Normal 0.2-1.0 Sgot/Ast 27 U/L Normal 15-37 SGPT/Alt 33 U/L Normal 12-78 Alkaline Phosphatase 74 U/L Normal 45-117 1 R74.8 2 Note: Persistent reduction for 3 months [...] information may be found at [email or web address]. 6 Note: Persistent reduction for 3 months or more in an eGFR <60 mL/min/1.73 m2 defines CKD. Patients with eGFR values >/=60 mL/min/1.73 m2 may also have CKD if evidence of persistent proteinuria is present. The original MDRD equation for estimated GFR is not valid for patients less than 18 years of age. Additional information may be found at [email or web address]. 7 Note: Persistent reduction for 3 months or more in an eGFR <60 mL/min/1.73 m2 defines CKD. Patients with eGFR values >/=60 mL/min/1.73 m2 may also have CKD if evidence of persistent proteinuria is present. The original MDRD equation for estimated GFR is not valid for patients less than 18 years of age. Additional information may be found at [email or web address]. 8 Note: Persistent reduction for 3 months [...] information may be found at [email or web address]. 11 R76.12 12 Note: Persistent reduction for 3 months or more in an eGFR <60 mL/min/1.73 m2 defines CKD. Patients with eGFR values >/=60 mL/min/1.73 m2 may also have CKD if evidence of persistent proteinuria is present. The original MDRD equation for estimated GFR is not valid for patients less than 18 years of age. Additional information may be found at [email or web address]. 13 Note: Persistent reduction for 3 months or more in an eGFR <60 mL/min/1.73 m2 defines CKD. Patients with eGFR values >/=60 mL/min/1.73 m2 may also have CKD if evidence of persistent proteinuria is present. The original MDRD equation for estimated GFR is not valid for patients less than 18 years of age. Additional information may be found at [email or web address]. 14 Note: Persistent reduction for 3 months or more in an eGFR <60 mL/min/1.73 m2 defines CKD. Patients with eGFR values >/=60 mL/min/1.73 m2 may also have CKD if evidence of persistent proteinuria is present. The original MDRD equation for estimated GFR is not valid for patients less than 18 years of age. Additional information may be found at [email or web address]. 15 Note: Persistent reduction for 3 months or more in an eGFR <60 mL/min/1.73 m2 defines CKD. Patients with eGFR values >/=60 mL/min/1.73 m2 may also have CKD if evidence of persistent proteinuria is present. The original MDRD equation for estimated GFR is not valid for patients less than 18 years of age. Additional information may be found at [email or web address]. Procedures Date Code Description Status 03/28/2018 [id number] Mammogram Completed Medical Devices Description No Information Available Encounters Type Date Location Provider Dx Diagnosis Office Visit 10/18/2018 Physical Medicine & Kathleen Zapien M.D. R74.8 Abnormal levels 3:30p Infectious Disease of other serum enzymes R76.12 Nonspec reaction to gamma intrfrn respns w/o actv tubrclosis M05.60 Rheu arthritis of [facility] w involv of organs and systems J45.20 Mild intermittent asthma, uncomplicated R60.0 Localized edema Office Visit 09/13/2018 3:30p Physical Medicine Kathleen Zapien, R76.12 Nonspec reaction & Infectious M.D. to gamma intrfrn Disease respns w/o actv tubrclosis M05.60 Rheu arthritis of [facility] w involv of organs and systems J45.20 Mild intermittent asthma, uncomplicated R60.0 Localized edema R74.8 Abnormal levels of other serum enzymes Office Visit 08/09/2018 3:30p Physical Medicine Kathleen Zapien R76.12 Nonspec reaction & Infectious M.D. to gamma intrfrn Disease respns w/o actv tubrclosis M05.60 Rheu arthritis of [facility] w involv of organs and systems J45.20 Mild intermittent asthma, uncomplicated Office Visit 07/05/2018 3:00p Physical Medicine Kathleen Zapien, R76.12 Nonspec reaction & Infectious M.D. to gamma intrfrn Disease respns w/o actv tubrclosis R42 Dizziness and giddiness M05.60 Rheu arthritis of [facility] w involv of organs and systems J45.20 Mild intermittent asthma, uncomplicated Office Visit 05/31/2018 3:00p Physical Medicine Kathleen Zapien, R76.12 Nonspec reaction & Infectious M.D. to gamma intrfrn Disease respns w/o actv tubrclosis R21 Rash and other nonspecific skin eruption R42 Dizziness and giddiness M05.60 Rheu arthritis of [facility] w involv of organs and systems J45.20 Mild intermittent asthma, uncomplicated Office Visit 05/24/2018 3:00p Pulmonology Kylie Noyola, R76.12 Nonspec reaction PA to gamma intrfrn respns w/o actv tubrclosis J45.20 Mild intermittent asthma, uncomplicated J30.2 Other seasonal allergic rhinitis Assessments Date Code Description Provider 11/15/2018 R76.12 Nonspecific reaction to cell mediated immunity Kathleen Zapien M.D. measurement o 11/15/2018 R74.8 Abnormal levels of other serum enzymes Kathleen Zapien M.D. 11/15/2018 M05.60 Rheumatoid arthritis of unspecified site with Kathleen Zapien M.D. involvement of 11/15/2018 J45.20 Mild intermittent asthma, uncomplicated Kathleen Zapien M.D. 10/18/2018 R74.8 Abnormal levels of other serum enzymes Kathleen Zapien M.D. 10/18/2018 R76.12 Nonspecific reaction to cell mediated immunity Kathleen Zapien M.D. measurement o 10/18/2018 M05.60 Rheumatoid arthritis of unspecified site with Kathleen Zapien M.D. involvement of 10/18/2018 J45.20 Mild intermittent asthma, uncomplicated Kathleen Zapien M.D. 10/18/2018 R60.0 Localized edema Kathleen Zapien M.D. 09/13/2018 R76.12 Nonspecific reaction to cell mediated immunity Kathleen Zapien M.D. measurement o 09/13/2018 M05.60 Rheumatoid arthritis of unspecified site with Kathleen Zapien M.D. involvement of 09/13/2018 J45.20 Mild intermittent asthma, uncomplicated Kathleen Zapien M.D. 09/13/2018 R60.0 Localized edema Kathleen aZpien M.D. 09/13/2018 R74.8 Abnormal levels of other serum enzymes Kathleen Zapien M.D. 08/09/2018 R76.12 Nonspecific reaction to cell mediated immunity Kathleen Zapien M.D. measurement o 08/09/2018 M05.60 Rheumatoid arthritis of unspecified site with Kathleen Zapien M.D. involvement of 08/09/2018 J45.20 Mild intermittent asthma, uncomplicated Kathleen Zapien M.D. 07/05/2018 R76.12 Nonspecific reaction to cell mediated immunity Kathleen Zapien M.D. measurement o 07/05/2018 R42 Dizziness and giddiness Kathleen Zapien M.D. 07/05/2018 M05.60 Rheumatoid arthritis of unspecified site with Kathleen Zapien M.D. involvement of 07/05/2018 J45.20 Mild intermittent asthma, uncomplicated Kathleen Zapien M.D. 05/31/2018 R76.12 Nonspecific reaction to cell mediated immunity Kathleen Zapien M.D. measurement o 05/31/2018 R21 Rash and other nonspecific skin eruption Kathleen Zapien M.D. 05/31/2018 R42 Dizziness and giddiness Kathleen Zapien M.D. 05/31/2018 M05.60 Rheumatoid arthritis of unspecified site with Kathleen Zapien M.D. involvement of 05/31/2018 J45.20 Mild intermittent asthma, uncomplicated Kathleen Zapien M.D. 05/24/2018 R76.12 Nonspecific reaction to cell mediated immunity Kylie Noyola PA measurement o 05/24/2018 J45.20 Mild intermittent asthma, uncomplicated Kylie Noyola PA 05/24/2018 J30.2 Other seasonal allergic rhinitis Kylie Noyola PA Plan of Treatment 11/15/2018 - Kathleen Zapien M.D.R76.12 Nonspecific reaction to cell mediated immunity measurement oNew Labs:Comprehensive Metabolic Panel, Ordered: Follow up:6 weeks prnR74.8 Abnormal levels of other serum nchrpzoJ70.60 Rheumatoid arthritis of unspecified site with involvement ofJ45.20 Mild intermittent asthma, uncomplicated Functional Status Functional Condition Comment Date Status Independent with all ADL's Active Mental Status Description No Information Available Referrals Description No Information Available
[2018-12-05 16:22] VITALS: BP 110/74
--- NOTE | 2018-12-05 16:31 | UC ---
Back Pain HPI - HPI Summary HPI Summary: 52 yo female presents with right low back/hip pain. Pt speaks limited Kosovan, thus her son with her today is helping to translate. They tell me that pt has a history of low back pain from a work injury years ago. 2 days ago pt noticed right lower back pain that radiates into her right hip. She has not taken anything OTC for her pain as she is allergic to multiple medications and is also on Enbrel for RA and was advised not to take NSAIDs. Since beginning, her pain has gotten worse. Pain is worse with movement - especially going from a bending to a standing position. She is having no radiation of her pain into her legs. Denies abdominal pain, n/v, fever, dysuria, saddle anesthesia, numbness/ tingling, or loss of bowel/bladder control. - History of Current Complaint Chief Complaint: UCBackPain Stated Complaint: LOWER BACK PAIN Time Seen by Provider: 12/05/18 16:31 Hx Obtained From: Patient, Family/Ux Designer ?: No Onset/Duration: Gradual Onset Severity Initially: Moderate Severity Currently: Severe Pain Intensity: 9 Pain Scale Used: 0-10 Numeric - Allergies/Home Medications Allergies/Adverse Reactions: Allergies Allergy/AdvReac Type Severity Reaction Status Date / Time cyclobenzaprine Allergy Unknown Verified 12/05/18 16:22 Reaction Details hydrocodone Allergy Unknown Verified 12/05/18 16:22 Reaction Details pseudoephedrine Allergy Unknown Verified 12/05/18 16:22 Reaction Details buprenorphine AdvReac Nausea And Verified 12/05/18 16:22 Vomiting oxycodone AdvReac Itching Verified 12/05/18 16:22 ENVIRONMENTAL Allergy WATERY EYES Uncoded 12/05/18 16:22 fruit Allergy Unknown Uncoded 12/05/18 16:22 Reaction Details Home Medications: Home Medications Etanercept [Enbrel] 25 mg SC WEEKLY 12/05/18 [History Confirmed 12/05/18] PMH/Surg Hx/FS Hx/Imm Hx - Additional Past Medical History Additional PMH: RA Asthma - Surgical History Surgical History: Yes Surgery Procedure, Year, and Place: hernia repair 2008, [facility] [place]. sinus surgery 2012 - Family History Known Family History: Positive: Non-Contributory Negative: Cardiac Disease, Hypertension, Diabetes Family History: denies cardiovascular issues in family lineage - Social History Lives: With Family Alcohol Use: None Substance Use Type: None Smoking Status (MU): Never Smoked Tobacco - Immunization History Most Recent Tetanus Shot: 1999? Review of Systems All Other Systems Reviewed And Are Negative: No Constitutional: Positive: Negative Skin: Positive: Negative Respiratory: Positive: Negative Cardiovascular: Positive: Negative Neurovascular: Positive: Negative Musculoskeletal: Positive: Other: - LBP Neurological: Positive: Negative Psychological: Positive: Negative Physical Exam - Summary Physical Exam Summary: GENERAL: NAD. WDWN. No pain distress. SKIN: No rashes, sores, lesions, or open wounds. NECK: Supple. FROM. Nontender. No lymphadenopathy. CHEST: CTAB. No r/r/w. No accessory muscle use. Breathing comfortably and in no distress. CV: RRR. Without m/r/g. Pulses intact. Cap refill <2seconds ABDOMEN: Mild RLQ TTP without specific mcburney point tenderness. Soft. No distention or guarding. Slight right CVA tenderness. Bowel sounds present MSK: Slight TTP over right lumbar paraspinal muscles. Pain with flexion and extension of spine. Negative SLR b/l. Strength 5/5 B/L LEs including dorsiflexion and plantar flexion. FROM B/L LEs. No edema. NEURO: Alert. Sensations intact B/L LEs L3-S1. Reflexes intact PSYCH: Age appropriate behavior. Triage Information Reviewed: Yes Vital Signs: Initial Vital Signs Temp 98.1 F 12/05/18 16:18 Pulse 83 12/05/18 16:18 Resp 20 12/05/18 16:18 BP 110/74 12/05/18 16:18 Pulse Ox 100 12/05/18 16:18 Laboratory Tests 12/05/18 16:40 POC Urine Color Ana POC Urine Clarity Cloudy POC Urine pH 6.5 POC Ur Specif [place] 1.020 POC Urine Protein Negative POC Ur Glucose (UA) Negative POC Urine Ketones Negative POC Urine Blood 1+ A POC Urine Nitrite Negative POC Urine Bilirubin Negative POC Urine Urobilinogen 1.0 POC U Leukocyte Esteras 1+ A Vital Signs Reviewed: Yes Diagnostics - Radiology CT abdomen/pelv Radiology Interpretation Completed By: Radiologist Summary of Radiographic Findings: IMPRESSION: 1. MILDLY PROMINENT APPENDIX WITHOUT GROSS EVIDENCE FOR INFLAMMATORY CHANGE. RECOMMEND CLINICAL CORRELATION. 2. DIFFUSE THICKENING OF THE WALL OF THE URINARY BLADDER CONSISTENT WITH EITHER CYSTITIS OR INCOMPLETE DISTENTION. 3. NO RENAL CALCULI OR HYDRONEPHROSIS. 4. CHRONIC L1 VERTEBRAL BODY COMPRESSION FRACTURE. Back Pain Course/Dx - Course Course Of Treatment: CT findings as above. Her pain is out of proportion for a UTI and she has not had an injury to support a low back MSK pathology. Given this, this may be early appendicitis or pyelonephritis. I discussed this with the pt and her son with her today and recommend that they go to the ER for further evaluation. They were agreeable to this and the son will drive her. - Differential Dx/Diagnosis Provider Diagnosis: Right flank pain Discharge ED - Sign-Out/Discharge Documenting (check all that apply): Patient Departure All imaging exams completed and their final reports reviewed: Yes - Discharge Plan Condition: Stable Disposition: HOME-RECOMMEND TO ED Referrals: Jair Paredes MD [Primary Care Provider] - Additional Instructions: Your CT scan at the Urgent care showed that your appendix could be inflamed, but it also showed a UTI. Your pain is quite severe for a UTI and has been getting worse over the last few days. Please go to the ER for further evaluation for your pain - Billing Disposition and Condition Condition: STABLE Disposition: Home-Recommend to ED
== END 2018-12-05 18:10 | disposition home health service (06) ==
LOC: UCEAST 16:08
DX: R10.9 Unspecified abdominal pain (principal); J45.909 Unspecified asthma, uncomplicated; M06.9 Rheumatoid arthritis, unspecified; Z88.5 Allergy status to narcotic agent
CPT/HCPCS: 74176; 81003; 87086; 99212; G0463

== ENCOUNTER 2018-12-05 18:58 | Emergency (ER) | payer OTHER ==
--- NOTE | 2018-12-05 19:52 | ED ---
Back Pain - HPI Summary HPI Summary: Patient complains of right lower back pain radiating to right lower quadrant times a couple days. Patient sent from urgent care to ED for further evaluation. CT abdomen and pelvis without contrast and care positive for mild prominent appendix without gross evidence for appendicitis, and bladder wall thickening. Patient eating and drinking normally. Denies fever, cough, sore throat, CP, SOB, N/V/D, and, change in BM, vaginal symptoms. Medical history is RA. - History of Current Complaint Chief Complaint: EDBackInjuryPain Stated Complaint: BACK PAIN PER SON Time Seen by Provider: 12/05/18 19:39 Hx Obtained From: Patient Onset/Duration: Sudden Onset, Lasting Days Onset/Duration: Started Days Ago Timing: Constant Severity Initially: Severe Severity Currently: Severe Pain Intensity: 10 Pain Scale Used: 0-10 Numeric Character: Sharp, Aching, Throbbing Aggravating Symptom(s): Movement Associated Signs And Symptoms: Positive: Abdominal Pain - Allergies/Home Medications Allergies/Adverse Reactions: Allergies Allergy/AdvReac Type Severity Reaction Status Date / Time cyclobenzaprine Allergy Unknown Verified 12/05/18 16:22 Reaction Details hydrocodone Allergy Unknown Verified 12/05/18 16:22 Reaction Details pseudoephedrine Allergy Unknown Verified 12/05/18 16:22 Reaction Details buprenorphine AdvReac Nausea And Verified 12/05/18 16:22 Vomiting oxycodone AdvReac Itching Verified 12/05/18 16:22 ENVIRONMENTAL Allergy WATERY EYES Uncoded 12/05/18 16:22 fruit Allergy Unknown Uncoded 12/05/18 16:22 Reaction Details PMH/Surg Hx/FS Hx/Imm Hx Endocrine/Hematology History: Denies: Hx Diabetes, Hx Thyroid Disease Cardiovascular History: Denies: Hx Hypertension, Hx Pacemaker/ICD, Other Cardiovascular Problems/ Disorders Respiratory History: Reports: Hx Asthma - inhaler, Hx Seasonal Allergies Denies: Hx Chronic Obstructive Pulmonary Disease (COPD), Other Respiratory Problems/Disorders GI History: Reports: Hx Irritable Bowel Denies: Hx Ulcer, Other GI Disorders History: Denies: Hx Renal Disease, Other Problems/Disorders Musculoskeletal History: Reports: Hx Arthritis - hands, Hx Back Problems - L1- L2 compression fracture Denies: Other Musculoskeletal History Sensory History: Reports: Hx Cataracts - shimon Denies: Hx Contacts or Glasses Opthamlomology History: Reports: Hx Cataracts - shimon Denies: Hx Contacts or Glasses EENT History: Denies: Hx Deafness Neurological History: Reports: Other Neuro Impairments/Disorders - PAIN CLINIC PT Psychiatric History: Denies: Hx Panic Disorder - Cancer History Hx Chemotherapy: No Hx Radiation Therapy: No - Surgical History Surgery Procedure, Year, and Place: hernia repair 2009, [facility]. sinus surgery 2013 Hx Anesthesia Reactions: No Infectious Disease History: No Infectious Disease History: Reports: Hx Tuberculosis - BEING TREATED PREVENTATIVELY - has been on treatment for 4+ months, POS ppd Denies: Hx Human Immunodeficiency Virus (HIV), Traveled Outside the [place] in Last 30 Days - Family History Known Family History: Positive: Non-Contributory Negative: Cardiac Disease, Hypertension, Diabetes Family History: denies cardiovascular issues in family lineage - Social History Alcohol Use: None Hx Substance Use: Yes Substance Use Type: Reports: None Hx Tobacco Use: No Smoking Status (MU): Never Smoked Tobacco Review of Systems Constitutional: Negative Eyes: Negative ENT: Negative Cardiovascular: Negative Respiratory: Negative Positive: Abdominal Pain Genitourinary: Negative Musculoskeletal: Other Skin: Negative Neurological: Negative Psychological: Normal All Other Systems Reviewed And Are Negative: Yes Physical Exam - Summary Physical Exam Summary: Tenderness in right lower quadrant and right flank with palpation. Abdominal exam otherwise unremarkable. Triage Information Reviewed: Yes Vital Signs On Initial Exam: Initial Vitals Temp Pulse Resp BP Pulse Ox 98.5 F 77 18 143/82 99 12/05/18 19:00 12/05/18 19:00 12/05/18 19:00 12/05/18 19:00 12/05/18 19:00 Vital Signs Reviewed: Yes Appearance: Positive: Well-Appearing Skin: Positive: Warm Head/Face: Positive: Normal Head/Face Inspection Eyes: Positive: Normal Neck: Positive: Supple Respiratory/Lung Sounds: Positive: Clear to Auscultation Cardiovascular: Positive: Normal Abdomen Description: Positive: Soft, Other: Musculoskeletal: Positive: Normal Neurological: Positive: Normal Psychiatric: Positive: Normal AVPU Assessment: Alert - Morton Coma Scale Best Eye Response: 4 - Spontaneous Best Motor Response: 6 - Obeys Commands Best Verbal Response: 5 - Oriented Coma Scale Total: 15 Diagnostics - Vital Signs Vital Signs Temp Pulse Resp BP Pulse Ox 12/05/18 19:00 98.5 F 77 18 143/82 99 - Laboratory Result Diagrams: 12/05/18 20:10 12/05/18 20:10 Lab Statement: Any lab studies that have been ordered have been reviewed, and results considered in the medical decision making process. Back Pain Course/Dx - Course Course Of Treatment: Patient complains of right lower back pain radiating to right lower quadrant times a couple days. Patient sent from urgent care to ED for further evaluation. CT abdomen and pelvis without contrast and care positive for mild prominent appendix without gross evidence for appendicitis, and bladder wall thickening. Patient eating and drinking normally. Denies fever , cough, sore throat, CP, SOB, N/V/D, and, change in BM, vaginal symptoms. Medical history is RA. Vital signs within normal limits. Labs unremarkable. UA possible UTI, cultures pending. An vaginal ultrasound negative. Discussed findings with surgery registration officer Dr. Tomlin who stated given history, and labs there is low risk of appendicitis, and no indication to repeat CT with IV contrast at this time. Patient's symptoms improved with oxycodone and lidocaine patch. Advised to return to the ED if abdominal pain worsens. Patient understands and approves of plan. - Diagnoses Provider Diagnoses: Back pain, Abdominal pain Discharge ED - Sign-Out/Discharge Documenting (check all that apply): Patient Departure Patient Received Moderate/Deep Sedation with Procedure: No - Discharge Plan Condition: Stable Disposition: HOME Prescriptions: Lidocaine PATCH 5%* [Lidoderm 5% Patch*] 1 patch TRANSDERM DAILY 5 Days #5 patch Patient Education Materials: Abdominal Pain (ED), Back Pain (ED) Referrals: Jair Paredes MD [Primary Care Provider] - Additional Instructions: Return to the ED for any new or worsening symptoms. - Billing Disposition and Condition Condition: STABLE Disposition: Home
[2018-12-05 20:17] LABS: ABS Eosinophils 0.2 10^3/ul (0-0.6); ABS Lymphocytes 2.3 10^3/ul (1.0-4.8); ABS Monocytes 0.6 10^3/ul (0-0.8); ABS Neutrophils 2.8 10^3/ul (1.5-7.7); Eosinophil % 3.1 %; Hematocrit 41 % (35-47); Hemoglobin 13.3 g/dL (12.0-16.0); Lymphocyte % 38.9 %; Mean Corpuscular HGB Conc 33 g/dL (31-36); Mean Corpuscular Hemoglobin 26 pg (27-31); Mean Corpuscular Volume 81 fL (80-97); Mean Platelet Volume 9.3 fL (7.4-10.4); Nucleated Red Blood Cells % 0.1; Platelet Count 173 10^3/uL (150-450); Red Blood Count 5.06 10^6 /uL (3.70-4.87); Red Cell Distribution Width 14 % (10-15)
[2018-12-05] MEDS ORDERED: Acetaminophen TAB* 325 MG PO ONE (20:19)
[2018-12-05 20:36] LABS: Albumin 4.2 g/dL (3.2-5.2); Albumin/Globulin Ratio 1.6 (1-3); BUN/Creatinine Ratio 15.5 (8-20); C Reactive Protein 1.16 mg/L (<8.01); Calcium 9.4 mg/dL (8.6-10.3); EGFR African American 85.8 (>60); EGFR Non-African American 70.9 (>60); Globulin 2.6 g/dL (2-4); Potassium 4.3 mmol/L (3.5-5.0); Total Bilirubin 0.5 mg/dL (0.2-1.0); Total Protein 6.8 g/dL (6.4-8.9)
[2018-12-05 21:50] LABS: Urine Appearance Clear; Urine Bacteria 1+ (Absent); Urine Bilirubin Negative (Negative); Urine Blood 1+ (Negative); Urine Color Colorless; Urine Glucose Negative (Negative); Urine Ketones Negative (Negative); Urine Nitrite Negative (Negative); Urine Protein Negative (Negative); Urine Red Blood Cell Trace(0-2/hpf) (Absent); Urine Specific Gravity 1.004 (1.010-1.030); Urine Squamous Epithelial Cell Present (Absent); Urine Urobilinogen Negative (Negative); Urine White Blood Cell Trace(0-5/hpf) (Absent)
[2018-12-05] MEDS ORDERED: diPHENhydraMINE PO* 50 MG PO ONE (23:39)
[2018-12-05] MEDS ORDERED: predniSONE TAB* 20 MG PO ONE (23:39)
[2018-12-05] MEDS ORDERED: oxyCODONE TAB* 5 MG TAB PO ONE (23:39)
[2018-12-06] MEDS ORDERED: Lidocaine PATCH 5%* 1 PATCH TRANSDERM SCH (01:00)
[2018-12-06 01:32] VITALS: BP 116/68
[2018-12-06] MEDS ORDERED: Lidocaine Patch REMOVE* 1 NOTE MISC SCH (21:00)
== END 2018-12-06 01:30 | disposition home or self-care (01) ==
LOC: ED 18:58
DX: M54.5 Low back pain (principal); R10.31 Right lower quadrant pain; J45.909 Unspecified asthma, uncomplicated; M06.9 Rheumatoid arthritis, unspecified; Z88.5 Allergy status to narcotic agent; Z88.8 Allergy status to other drugs, medicaments and biological substances; Z91.018 Allergy to other foods
CPT/HCPCS: 36415; 76830; 80053; 81003; 81015; 83605; 83690; 85025; 86140; 99282; A9270-GY; J7512

== ENCOUNTER 2018-12-07 10:42 | Emergency (ER) | payer OTHER ==
[2018-12-07] MEDS: Lidocaine PATCH 5%* 1 PATCH TRANSDERM SCH ×2 (11:28→12:04)
[2018-12-07 11:31] LABS: ABS Eosinophils 0.1 10^3/ul (0-0.6); ABS Lymphocytes 1.5 10^3/ul (1.0-4.8); ABS Monocytes 0.4 10^3/ul (0-0.8); ABS Neutrophils 4.2 10^3/ul (1.5-7.7); Eosinophil % 1.1 %; Hematocrit 39 % (35-47); Hemoglobin 12.8 g/dL (12.0-16.0); Mean Corpuscular HGB Conc 33 g/dL (31-36); Mean Corpuscular Hemoglobin 27 pg (27-31); Mean Corpuscular Volume 81 fL (80-97); Mean Platelet Volume 9.4 fL (7.4-10.4); Platelet Count 165 10^3/uL (150-450); Red Blood Count 4.81 10^6 /uL (3.70-4.87); Red Cell Distribution Width 14 % (10-15); White Blood Count 6.2 10^3/uL (3.5-10.8)
[2018-12-07] MEDS ORDERED: ValACYclovir (*) 1 GM TAB PO ONE (11:46)
--- NOTE | 2018-12-07 12:10 | ED ---
Back Pain - HPI Summary HPI Summary: This patient is a 52-year-old female presenting to the ED with right-sided pain. She denies any pain to her abdomen or her back, but is endorsing pain to her side body. She states it is radiating up into her lower rib cage. She denies any shortness of breath or chest pain. Denies any change in bowel habits , urinary symptoms. Continues to pass gas and eating well. Denies fevers sweats or chills. She was seen in the ED 2 days ago and had a transvaginal ultrasound as well as a CT abdomen/pelvis obtained. These were both negative for any acute findings, however did suggest that they were unable to see the appendix well and recommended a correlation and/or IV contrast follow-up. At that time in the ED, labs were obtained which show a negative white count and normal CRP. Surgery was consulted. She continues to feel side pain and was not started on any antibiotics at this time, although there was suggestion of a possible UTI. She was given a lidocaine patch for at home, however her insurance did not cover this and she was unable to obtain this. She has not been taking ibuprofen or Tylenol. History of back pain. - History of Current Complaint Chief Complaint: EDFlankPain Stated Complaint: RIGHT FLANK PAIN Time Seen by Provider: 12/07/18 10:49 Hx Obtained From: Patient Onset/Duration: Sudden Onset Onset/Duration: Started Hours Ago Timing: Constant Back Pain Location: Is Discrete @ - right side body Severity Initially: Moderate Severity Currently: Moderate Pain Intensity: 10 Pain Scale Used: 0-10 Numeric Character: Aching Associated Signs And Symptoms: Positive: Negative - Risk Factors AAA Risk Factors: Negative TAD Risk Factors: Cauda Equina Risk Factors: Negative Epidural Abscess Risk Factors: Negative - Allergies/Home Medications Allergies/Adverse Reactions: Allergies Allergy/AdvReac Type Severity Reaction Status Date / Time cyclobenzaprine Allergy Unknown Verified 12/07/18 10:44 Reaction Details hydrocodone Allergy Unknown Verified 12/07/18 10:44 Reaction Details pseudoephedrine Allergy Unknown Verified 12/07/18 10:44 Reaction Details buprenorphine AdvReac Nausea And Verified 12/07/18 10:44 Vomiting oxycodone AdvReac Itching Verified 12/07/18 10:44 ENVIRONMENTAL Allergy WATERY EYES Uncoded 12/07/18 10:44 fruit Allergy Unknown Uncoded 12/07/18 10:44 Reaction Details PMH/Surg Hx/FS Hx/Imm Hx Previously Healthy: Yes - still learning opportunity Endocrine/Hematology History: Denies: Hx Diabetes, Hx Thyroid Disease Cardiovascular History: Denies: Hx Hypertension, Hx Pacemaker/ICD, Other Cardiovascular Problems/ Disorders Respiratory History: Reports: Hx Asthma - inhaler, Hx Seasonal Allergies Denies: Hx Chronic Obstructive Pulmonary Disease (COPD), Other Respiratory Problems/Disorders - [place] FUNDIPLOCATION 2008 GI History: Reports: Hx Irritable Bowel Denies: Hx Ulcer, Other GI Disorders History: Denies: Hx Renal Disease, Other Problems/Disorders Musculoskeletal History: Reports: Hx Arthritis - hands, Hx Back Problems - L1- L2 compression fracture Denies: Other Musculoskeletal History Sensory History: Reports: Hx Cataracts - shimon Denies: Hx Contacts or Glasses, Hx Deafness Opthamlomology History: Reports: Hx Cataracts - shimon Denies: Hx Contacts or Glasses Neurological History: Reports: Other Neuro Impairments/Disorders - PAIN CLINIC PT Psychiatric History: Denies: Hx Panic Disorder - Cancer History Hx Chemotherapy: No Hx Radiation Therapy: No - Surgical History Surgery Procedure, Year, and Place: hernia repair 2009, [facility] [place]. sinus surgery 2013 Hx Anesthesia Reactions: No - Immunization History Hx Pertussis Vaccination: No Immunizations Up to Date: Yes Infectious Disease History: No Infectious Disease History: Reports: Hx Tuberculosis - BEING TREATED PREVENTATIVELY - has been on treatment for 4+ months, POS ppd Denies: Hx Human Immunodeficiency Virus (HIV), Traveled Outside the [place] in Last 30 Days - Family History Known Family History: Positive: Non-Contributory Negative: Cardiac Disease, Hypertension, Diabetes Family History: denies cardiovascular issues in family lineage - Social History Occupation: Employed Full-time Lives: With Family Alcohol Use: None Hx Substance Use: Yes Substance Use Type: Reports: None Hx Tobacco Use: No Smoking Status (MU): Never Smoked Tobacco Review of Systems Constitutional: Negative Negative: Fever, Chills, Fatigue, Skin Diaphoresis Negative: Palpitations, Chest Pain Negative: Shortness Of Breath, Cough Genitourinary: Negative Musculoskeletal: Other - right sided pain Positive: Other - erythematous rash to the R rib cage with vesicles overlying Neurological: Negative All Other Systems Reviewed And Are Negative: Yes Physical Exam Triage Information Reviewed: Yes Vital Signs On Initial Exam: Initial Vitals Temp Pulse Resp BP Pulse Ox 97.9 F 66 19 115/78 100 12/07/18 10:44 12/07/18 10:44 12/07/18 10:44 12/07/18 10:44 12/07/18 10:44 Vital Signs Reviewed: Yes Appearance: Positive: Well-Appearing, Well-Nourished Skin: Positive: Warm, Skin Color Reflects Adequate Perfusion, Other - right side body erythematous rash with vesicles Eyes: Positive: EOMI, LUZ, Conjunctiva Clear Neck: Positive: Supple, No Lymphadenopathy Respiratory/Lung Sounds: Positive: Clear to Auscultation, Breath Sounds Present Cardiovascular: Positive: RRR, Pulses are Symmetrical in both Upper and Lower Extremities Abdomen Description: Negative: CVA Tenderness (R), CVA Tenderness (L) Musculoskeletal: Positive: Normal, Strength/ROM Intact Neurological: Positive: Sensory/Motor Intact, Alert, Oriented to Person Place, Time, Speech Normal Psychiatric: Positive: Affect/Mood Appropriate Diagnostics - Vital Signs Vital Signs Temp Pulse Resp BP Pulse Ox 12/07/18 11:33 65 114/69 100 12/07/18 11:03 73 121/70 97 12/07/18 11:02 74 98 12/07/18 10:44 97.9 F 66 19 115/78 100 - Laboratory Lab Results: Lab Results 12/07/18 12/07/18 Range/Units 11:22 11:22 WBC 6.2 (3.5-10.8) 10^3/uL RBC 4.81 (3.70-4.87) 10^6 /uL Hgb 12.8 (12.0-16.0) g/dL Hct 39 (35-47) % MCV 81 (80-97) fL MCH 27 (27-31) pg MCHC 33 (31-36) g/dL RDW 14 (10-15) % Plt Count 165 (150-450) 10^3/uL MPV 9.4 (7.4-10.4) fL Neut % (Auto) 67.3 % Lymph % (Auto) 25.0 % [place] % (Auto) 6.2 % Eos % (Auto) 1.1 % Baso % (Auto) 0.4 % Absolute Neuts (auto) 4.2 (1.5-7.7) 10^3/ul Absolute Lymphs (auto) 1.5 (1.0-4.8) 10^3/ul Absolute Monos (auto) 0.4 (0-0.8) 10^3/ul Absolute Eos (auto) 0.1 (0-0.6) 10^3/ul Absolute Basos (auto) 0.0 (0-0.2) 10^3/ul Absolute Nucleated RBC 0.0 10^3/ul Nucleated RBC % 0.0 C-Reactive Protein 1.26 (<8.01) mg/L Result Diagrams: 12/07/18 11:22 Lab Statement: Any lab studies that have been ordered have been reviewed, and results considered in the medical decision making process. Back Pain Course/Dx - Course Course Of Treatment: During this course of treatment, the patient is evaluated for right-sided body pain. On physical examination, she is having pain to the right side body without RUQ pain or RLQ pain. No CVA tenderness bilaterally. No nausea or vomiting. Denies fever, sweats, chills. Denies CP or SOB. Lungs CTA, RRR. Patient appears well and nondiaphoretic, however she appears to be in some pain distress, rating 5/10 and pointing to the R rib cage. No pain to palpation over this area and negative murphys sign. Full workup obtained 2 days ago and lidocaine patch as given, however she was unable to pick this up d/ t insurance coverage. Skin examination reveals erythematous rash to the right side body with small vesicles overlying. This is indicative of shingles rash. Labs obtained which again are WNL. She is given rx for valacyclovir 1g 3x daily x 7 days and will f/u with PCP. She is given 3 days pain medication. - Diagnoses Differential Diagnosis/HQI/PQRI: Positive: Strain, Sprain, Other - other rash, poison oak Provider Diagnoses: Shingles Discharge ED - Sign-Out/Discharge Documenting (check all that apply): Patient Departure Patient Received Moderate/Deep Sedation with Procedure: No - Discharge Plan Condition: Stable Disposition: HOME Prescriptions: traMADol TAB* [Ultram*] 50 mg PO Q8H PRN #12 tab MDD 3 PRN Reason: Pain ValACYclovir (*) [Valtrex 1 GM(*)] 1 gm PO TID #21 tab MDD 3 Patient Education Materials: Shingles (ED) Referrals: Jair Paredes MD [Primary Care Provider] - 3 Days (Shingles - right sided pain with vesicles) Additional Instructions: Valacyclovir three times daily x 7 days Follow up with PCP in all 3-4 days Tramadol as needed for discomfort May also use tylenol or iburprofen for discomfort Moist heat to the area as much as possible - Billing Disposition and Condition Condition: STABLE Disposition: Home
[2018-12-07] MEDS ORDERED: traMADol TAB* 50 MG PO ONE (12:13)
[2018-12-07 12:41] VITALS: BP 109/76
[2018-12-07 12:51] LABS: Urine Appearance Clear; Urine Bacteria Absent (Absent); Urine Bilirubin Negative (Negative); Urine Blood 1+ (Negative); Urine Color Yellow; Urine Glucose Negative (Negative); Urine Ketones Negative (Negative); Urine Nitrite Negative (Negative); Urine Protein Negative (Negative); Urine Red Blood Cell Trace(0-2/hpf) (Absent); Urine Squamous Epithelial Cell Present (Absent); Urine Urobilinogen Negative (Negative); Urine White Blood Cell Trace(0-5/hpf) (Absent)
[2018-12-07] MEDS ORDERED: Lidocaine Patch REMOVE* 1 NOTE MISC SCH (21:00)
== END 2018-12-07 12:31 | disposition home or self-care (01) ==
LOC: ED 10:42
DX: B02.9 Zoster without complications (principal); Z79.899 Other long term (current) drug therapy; Z88.5 Allergy status to narcotic agent; Z88.8 Allergy status to other drugs, medicaments and biological substances
CPT/HCPCS: 36415; 71046; 81003; 81015; 85025; 86140; 87086; 99283; A9270-GY